=== PATIENT | male | born 1935 | race Caucasian/White ===

== ENCOUNTER 2022-10-15 13:54 | Inpatient (IN) | payer MEDICARE, SELFPAY ==
[2022-10-15] VITALS (17 sets, daily range): BP systolic 105–145; BP diastolic 38–99; PULSE 66–88; RESP 16–28; TEMP 36.4–36.9; O2SAT 92–100; BMI 26.5; BMI 26.4
--- NOTE | 2022-10-15 14:21 | ED.RN ---
Patient arrives from [place] after being brought here yesterday from [place]. Hgb 6.8 yesterday. 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 Patient states he is DNR/DNI. [place] called for paperwork.
--- NOTE | 2022-10-15 15:05 | NURSING ---
NO OLD EKGS
[2022-10-15 15:11] LABS: Anion Gap 3 (5-15); BUN 23 mg/dL (7-18); BUN/Creat Ratio 25.8 RATIO (10-20); Calcium,Total 8.6 mg/dL (8.5-10.1); Chloride 106 mmol/L (98-107); Creatinine, Serum 0.89 mg/dL (0.70-1.30); EST Glomerular Filtration Rate 86 mL/min (>60); Est Glom Filt Rate - Afr Amer 104 mL/min (>60); Estimated Creatinine Clearance 57.64 ml/min; Glucose 162 mg/dL (74-106); Hematocrit 20.9 % (40-54); Hemoglobin 6.5 g/dL (13.0-16.5); Mean Corp Hgb Conc 31.1 g/dL (32-36); Mean Corpuscular Hgb 32.3 pg (27.0-32.0); Mean Platelet Vol. 11.3 fl (6.2-12.0); POSITIVE COUNT YES; POSITIVE MORPHOLOGY YES; Platelet Count 106 K/mm3 (150-450); Potassium 4.2 mmol/L (3.5-5.1); RBC Distribution Width CV 22.6 % (11.6-14.6); RBC Distribution Width SD 82.7 fl (35.1-43.9); Red Blood Count 2.01 M/mm3 (4.6-6.2); Sodium Level 143 mmol/L (136-145); White Blood Count 9.1 K/mm3 (4.4-11.0)
[2022-10-15 15:12] LABS: Differential Indicated MANUAL DIFF
[2022-10-15 15:35] LABS: Troponin-I HS 18 pg/mL (3.0-78.0)
[2022-10-15 15:45] LABS: AST(SGOT) 17 U/L (15-37); Alanine Aminotransfer ALT/SGPT 29 U/L (16-61); Albumin, Serum 3.1 g/dL (3.2-5.0); Alkaline Phosphatase 136 U/L (45-117); Globulin 2.9 g/dL (2.2-4.2); Lymphocyte 19 % (19-41); Monocyte 4 % (0-10); Neutrophil-Band 4 % (0-5); Neutrophil-Segmented 73 % (47-70); Nucleated Red Bld Cells,Manual 1 % (0-5); Total Cells Counted 100 (MANUAL DIFF)
[2022-10-15 15:45] LABS: International Normalized Ratio 1.9; Prothrombin Time (Protime)PT. 22.2 SECONDS (11.7-14.9)
[2022-10-15 15:46] LABS: Anisocytosis 2+
[2022-10-15 15:47] LABS: Hypochromasia 1+; Platelet Estimate SLT DEC (ADEQ); Polychromasia RARE
[2022-10-15 15:48] LABS: Absolute Lymphocyte Count 1.73 X10^3/uL (0.83-4.51)
--- NOTE | 2022-10-15 15:55 | RAD_ITS ---
STUDY: X-RAY CHEST REASON FOR EXAM: Male, 87 years old. dyspnea TECHNIQUE: Single AP portable view of the chest. COMPARISON: None. FINDINGS: Prominently elevated left hemidiaphragm versus diaphragmatic hernia. Density in the adjacent left lung is consistent with atelectasis or scarring. Cannot exclude small left pleural effusion. Right lung is clear. Moderate cardiomegaly. Normal mediastinum and jc. Normal visualized pulmonary arteries. Normal visualized aortic arch and descending thoracic aorta. Normal visualized thoracic spine. Normal visualized ribs, clavicles, and shoulders. There is no demonstrated abnormality of the visualized soft tissue structures of the upper abdomen. RAD/Chest 1 View (Portable) IMPRESSION: Prominently elevated left hemidiaphragm versus diaphragmatic hernia. Complex pulmonary densities in the lower left hemithorax. CT scan recommended for better evaluation. Electronically Signed: Craig Whitaker MD at 16:35 EDT ,
--- NOTE | 2022-10-15 15:59 | EX.ED.DYSGE1 ---
HPI History of Present Illness Chief Complaint: Shortness of Breath Narrative Narrative: 87-year-old male presenting from [facility]. Apparently he just arrived here yesterday from [place]. He was diagnosed with leukemia previously. They did lab work today and noted that his hemoglobin was low and he sent to the emergency room. The patient is a poor informant. He does state he has a history of leukemia. He is accompanied by his sister. She tells me that her nephew is the power of immigration attorney. She was not able to give me much history however I did speak to MORENO his nephew on the phone who stated that he had a history of duodenal ulcers in the past. He is on Eliquis. His sister notes that his stools were very dark. He does not complain of abdominal pain. He does complain he is a little short of breath. [facility] Medical History (Updated 10/15/22 @ 20:06 by Hemanth Zazueta) Afib AML (acute myeloblastic leukemia) Anemia Congestive heart failure (CHF) Former smoker GI bleed Hypertension Prostate cancer Home Medications acetaminophen 325 mg capsule 650 mg PO Q4H PRN fever or pain 10/15/22 [History Last Taken Unknown] allopurinol 100 mg tablet 150 mg PO DAILY 10/15/22 [History Last Taken Unknown] apixaban 5 mg tablet (Eliquis) 5 mg PO BID 10/15/22 [History Last Taken Unknown] ferrous sulfate 325 mg (65 mg iron) tablet (Feosol) 325 mg PO QODAY 10/15/22 [History Last Taken Unknown] finasteride 5 mg tablet 5 mg PO DAILY 10/15/22 [History Last Taken Unknown] furosemide 20 mg tablet 20 mg PO DAILY 10/15/22 [History Last Taken Unknown] hydrocodone-acetaminophen 5-325mg 5mg-325mg 1 tab PO Q4H PRN pain 10/15/22 [History Last Taken Unknown] ipratropium 0.5 mg-albuterol 3 mg (2.5 mg base)/3 mL nebulization soln 3 ml inhalation Q4H PRN shortness of breath 10/15/22 [History Last Taken Unknown] metoprolol tartrate 25 mg tablet 25 mg PO BID 10/15/22 [History Last Taken Unknown] pantoprazole 40 mg tablet,delayed release 40 mg PO DAILY 10/15/22 [History Last Taken Unknown] potassium chloride 10 mEq tablet,extended release (K-Tab) 10 meq PO BID 10/15/22 [History Last Taken Unknown] sennosides 8.6 mg tablet (Natural Senna Laxative) 17.2 mg PO QHS 10/15/22 [History Last Taken Unknown] tamsulosin 0.4 mg capsule (Flomax) 0.4 mg PO DAILY 10/15/22 [History Last Taken Unknown] terazosin 2 mg capsule 2 mg PO DAILY 10/15/22 [History Last Taken Unknown] Allergy/AdvReac Type Severity Reaction Status Date / Time No Known Allergies Allergy Verified 10/15/22 14:23 Social History Smoking Status: Former smoker ROS ROS ED Constitutional Constitutional ED: Denies fever(s) or subjective Eyes Eyes: Denies blurry vision or change in vision ENT ENT ED: Denies rhinorrhea or sore throat Cardiovascular Cardiovascular: Denies chest pain or palpitations Respiratory/Chest Respiratory/Chest: Reports dyspnea Gastrointestinal Gastrointestinal: Reports melena; Denies abdominal pain, nausea or vomiting Genitourinary Genitourinary ED: Denies dysuria or hematuria Musculoskeletal Musculoskeletal: Denies arthralgias or back pain Integumentary Denies abscess Neurologic Neurologic: Denies headache(s) Psychiatric Psychiatric: Denies anxiety or depression EXAM Physical Exam Const Vital Signs: 10/15/22 13:57 10/15/22 14:05 10/15/22 14:08 Temperature 97.7 F L Temperature Source Oral Pulse Rate 86 86 Respiratory Rate 24 H 24 H Respiratory Effort Labored Blood Pressure 105/44 L Blood Pressure Mean 64 Pulse Ox 100 100 Oxygen Delivery Method Nasal Cannula Nasal Cannula Nasal Cannula Oxygen Flow Rate (L/min) 2 2 2 10/15/22 16:40 10/15/22 16:40 Temperature Temperature Source Pulse Rate Respiratory Rate 24 H Respiratory Effort Blood Pressure Blood Pressure Mean Pulse Ox 99 Oxygen Delivery Method Nasal Cannula Nasal Cannula Oxygen Flow Rate (L/min) 2 2 Positive unkempt General Appearance ED: unkempt and NAD HEENT Reports dry mucous membranes Mouth ED: Yes dry mucous membranes Mouth: dry mucous membranes Eyes PERRL and EOMs intact bilaterally General Eye ED: Yes pale conjunctiva; Negative for scleral icterus Resp normal respiratory effort Cardio regular rate and regular rhythm GI normal to inspection, nondistended, normoactive bowel sounds Neuro CN's II-XII intact bilaterally Sensorium / Orientation: alert Motor Exam: general weakness Psych Appearance: unkempt MDM MDM MDM Narrative Medical decision making narrative: 87-year-old male with history of leukemia recent transfer from [place] yesterday now in [facility]. He is coming in for low hemoglobin. Apparently he sat history of upper GI bleeds in the past. He is on Eliquis. The patient himself is a poor informant. I did speak with his POA which is his nephew Moreno. We discussed the case at length and he wants his uncle to be hospitalized if he needs endoscopy. His hemoglobin today is 6.5 with no comparison. He was typed and screened on arrival. CBC shows no leukocytosis. PT/INR were obtained and his INR is 1.9. Creatinine is 0.89 and BUN is 23. Electrolytes unremarkable. Glucose 162. Alkaline phosphatase 126, direct bilirubin 0.5, total bilirubin 1.0 otherwise LFTs are normal. Ammonia level is 11. High-sensitivity troponin is 18. EKG atrial fibrillation with a ventricular rate of 76 bpm without sign of ischemia. Chest x-ray shows nothing acute on my interpretation. No comparison x-rays discussed case with Dr. Shaikh who is amenable to him being admitted. He states he will take him to endoscopy. Discussed with hospitalist for admission. Impression: 1. Acute blood loss anemia 2. GI bleed 3. Debility Lab Data Attestation: I reviewed the patient's lab results. Labs: Laboratory Results - last 24 hr 10/15/22 10/15/22 10/15/22 14:18 14:47 15:04 WBC 9.1 RBC 2.01 L Hgb 6.5 L Hct 20.9 L MCV 104.0 H MCH 32.3 H MCHC 31.1 L RDW Std Deviation 82.7 H RDW Coeff of Jero 22.6 H Plt Count 106 L MPV 11.3 Neut % (Auto) Not Reportable Absolute Neuts (auto) 7.0 Absolute Lymphs (auto) 1.73 Total Counted 100 Neutrophils % (Manual) 73 H Band Neutrophils % 4 Lymphocytes % (Manual) 19 Monocytes % (Manual) 4 Nucleated RBCs/100 WBC 1 Diff Path Review May foll Platelet Estimate SLT DEC Polychromasia RARE Hypochromasia 1+ Anisocytosis 2+ PT 22.2 H INR 1.9 Sodium 143 Potassium 4.2 Chloride 106 Carbon Dioxide 34.0 H Anion Gap 3 L BUN 23 H Creatinine 0.89 Estim Creat Clear Calc 57.64 Est GFR (MDRD) Af Amer 104 Est GFR (MDRD) Non-Af 86 BUN/Creatinine Ratio 25.8 H Glucose 162 H Calcium 8.6 Total Bilirubin 1.00 Direct Bilirubin 0.50 H AST 17 ALT 29 Alkaline Phosphatase 136 H Ammonia Troponin I High Sens Total Protein 6.0 L Albumin 3.1 L Globulin 2.9 Blood Type Cancelled Antibody Screen Cancelled Crossmatch 10/15/22 10/15/22 15:05 15:35 WBC RBC Hgb Hct MCV MCH MCHC RDW Std Deviation RDW Coeff of Jero Plt Count MPV Neut % (Auto) Absolute Neuts (auto) Absolute Lymphs (auto) Total Counted Neutrophils % (Manual) Band Neutrophils % Lymphocytes % (Manual) Monocytes % (Manual) Nucleated RBCs/100 WBC Diff Path Review Platelet Estimate Polychromasia Hypochromasia Anisocytosis PT INR Sodium Potassium Chloride Carbon Dioxide Anion Gap BUN Creatinine Estim Creat Clear Calc Est GFR (MDRD) Af Amer Est GFR (MDRD) Non-Af BUN/Creatinine Ratio Glucose Calcium Total Bilirubin Direct Bilirubin AST ALT Alkaline Phosphatase Ammonia 11.0 Troponin I High Sens 18 Total Protein Albumin Globulin Blood Type Antibody Screen NEGATIVE Crossmatch See Detail Discharge Plan Disposition Disposition: Acute Care Hospital [facility] Discharge Date/Time: 10/15/22 18:17
--- NOTE | 2022-10-15 16:44 | NURSING ---
MED SURG RUBEN GI BLEED, ACUTE BLOOD LOSS, ANEMIA
--- NOTE | 2022-10-15 16:48 | PCM.HP.STD ---
[facility] - General General Date of Service: 10/15/22 Chief Complaint: weakness. HPI Narrative JASVIR LEA, is a 87 M who presents with weakness. Patient was just recently admitted to [facility] yesterday. He has been weak. Previously, the patient was living in [facility] and was sent here by his family. Patient had hernia surgery in August and has been in and out of the hospital in [place] ever since. Patient sister and nephew live out here and patient was brought here to stay at [facility]. Patient has noted dark stools. Does have a history of duodenal ulcers. Does have a history of AML and has been given a prognosis of months to maybe a year. [facility] Medical History (Updated 10/15/22 @ 16:[address] Farhad Gomes, ) Afib AML (acute myeloblastic leukemia) Anemia Prostate cancer Home Medications acetaminophen 325 mg capsule 650 mg PO Q4H PRN fever or pain 10/15/22 [History Last Taken Unknown] allopurinol 100 mg tablet 150 mg PO DAILY 10/15/22 [History Last Taken Unknown] apixaban 5 mg tablet (Eliquis) 5 mg PO BID 10/15/22 [History Last Taken Unknown] ferrous sulfate 325 mg (65 mg iron) tablet (Feosol) 325 mg PO QODAY 10/15/22 [History Last Taken Unknown] finasteride 5 mg tablet 5 mg PO DAILY 10/15/22 [History Last Taken Unknown] furosemide 20 mg tablet 20 mg PO DAILY 10/15/22 [History Last Taken Unknown] hydrocodone-acetaminophen 5-325mg 5mg-325mg 1 tab PO Q4H PRN pain 10/15/22 [History Last Taken Unknown] ipratropium 0.5 mg-albuterol 3 mg (2.5 mg base)/3 mL nebulization soln 3 ml inhalation Q4H PRN shortness of breath 10/15/22 [History Last Taken Unknown] metoprolol tartrate 25 mg tablet 25 mg PO BID 10/15/22 [History Last Taken Unknown] pantoprazole 40 mg tablet,delayed release 40 mg PO DAILY 10/15/22 [History Last Taken Unknown] potassium chloride 10 mEq tablet,extended release (K-Tab) 10 meq PO BID 10/15/22 [History Last Taken Unknown] sennosides 8.6 mg tablet (Natural Senna Laxative) 17.2 mg PO QHS 10/15/22 [History Last Taken Unknown] tamsulosin 0.4 mg capsule (Flomax) 0.4 mg PO DAILY 10/15/22 [History Last Taken Unknown] terazosin 2 mg capsule 2 mg PO DAILY 10/15/22 [History Last Taken Unknown] Allergy/AdvReac Type Severity Reaction Status Date / Time No Known Allergies Allergy Verified 10/15/22 14:23 no significant family history Social History Smoking Status: Former smoker DESTINY DIXON Narrative Has chronic eye issues involving his left due to retinal tear and numerous interventions on his eye. All review of systems were negative except as mentioned above in the history of present illness and the other review of systems. Vital Signs Vital Signs Vital Signs: 10/15/22 13:57 10/15/22 14:05 10/15/22 14:08 Temperature 36.5 C L Temperature Source Oral Pulse Rate 86 86 Respiratory Rate 24 H 24 H Respiratory Effort Labored Blood Pressure 105/44 L Blood Pressure Mean 64 Pulse Ox 100 100 Oxygen Delivery Method Nasal Cannula Nasal Cannula Nasal Cannula Oxygen Flow Rate (L/min) 2 2 2 10/15/22 16:40 10/15/22 16:40 Temperature Temperature Source Pulse Rate Respiratory Rate 24 H Respiratory Effort Blood Pressure Blood Pressure Mean Pulse Ox 99 Oxygen Delivery Method Nasal Cannula Nasal Cannula Oxygen Flow Rate (L/min) 2 2 Weight Weight: 79.2 kg Body Mass Index (BMI) 26.5 Physical Exam Const alert and no apparent distress General Appearance: cooperative HEENT normocephalic Eyes Eyes Narrative: Amblyopia. Left eye is matted. Disconjugate gaze particular with the left eye. Neck no lymphadenopathy Neck Narrative: No thyromegaly Resp normal respiratory effort, no retractions, no use of accessory muscles and clear to auscultation bilaterally Cardio regular rate, regular rhythm, S1 normal heart sound and S2 normal heart sound GI normal to inspection, nondistended, normoactive bowel sounds, soft to palpation, non-tender and non-distended Extremity normal to inspection and full ROM Neuro moves all extremities and no focal motor deficits Psych affect normal Results Lab / Micro Data Attestation: I reviewed the patient's lab results. 10/15/22 14:47 10/15/22 14:47 Labs: Laboratory Results - last 24 hr 10/15/22 14:18: PT 22.2 H, INR 1.9 10/15/22 14:47: WBC 9.1, RBC 2.01 L, Hgb 6.5 L, Hct 20.9 L, MCV 104.0 H, MCH 32.3 H, MCHC 31.1 L, RDW Std Deviation 82.7 H, RDW Coeff of Jero 22.6 H, Plt Count 106 L, MPV 11.3, Neut % (Auto) Not Reportable, Absolute Neuts (auto) 7.0, Absolute Lymphs (auto) 1.73, Total Counted 100, Neutrophils % (Manual) 73 H, Band Neutrophils % 4, Lymphocytes % (Manual) 19, Monocytes % (Manual) 4, Nucleated RBCs/100 WBC 1, Diff Path Review August, Platelet Estimate SLT DEC, Polychromasia RARE, Hypochromasia 1+, Anisocytosis 2+, Sodium 143, Potassium 4.2, Chloride 106, Carbon Dioxide 34.0 H, Anion Gap 3 L, BUN 23 H, Creatinine 0.89, Estim Creat Clear Calc 57.64, Est GFR (MDRD) Af Amer 104, Est GFR (MDRD) Non-Af 86, BUN/Creatinine Ratio 25.8 H, Glucose 162 H, Calcium 8.6, Total Bilirubin 1.00, Direct Bilirubin 0.50 H, AST 17, ALT 29, Alkaline Phosphatase 136 H, Total Protein 6.0 L, Albumin 3.1 L, Globulin 2.9 10/15/22 15:04: Blood Type Cancelled, Antibody Screen Cancelled 10/15/22 15:05: Troponin I High Sens 18 10/15/22 15:35: Ammonia 11.0, Crossmatch See Detail Assessment & Plan Assessment/Plan (1) GI bleed: QUALIFIERS: GI bleed type/associated pathology: unspecified gastrointestinal hemorrhage type Qualified Code(s): K92.2 - Gastrointestinal hemorrhage, unspecified PLAN: Suspected Patient has reported history of duodenal ulcers Possibly this could be duodenal ulcers combine by the fact that he is on apixaban. Hold apixaban GI consult IV pantoprazole (2) Acute blood loss anemia: PLAN: Presumed, hemoglobin 6.5 and patient is weak. Patient ordered 2 units of packed red blood cells. Monitor (3) Debility: PLAN: Acute on chronic. According to the patient's sister, he has been in and out of the hospital ever since August after having hernia surgery. He has not been home since then. PT OT evaluate and treat PLAN: Plan Chronic conditions Atrial fibrillation: Apixaban to be held given the bleeding, continue with pantoprazole History of duodenal ulcers: PPI therapy for now. Prostate cancer: Patient on tamsulosin, finasteride and terazosin. AML per history. Patient has been given prognosis of months to about a year. Has been deemed not A candidate for chemotherapy given his debility and multiple medical comorbidities. Gout: Continue allopurinol Chronic anemia: Continue with ferrous sulfate VTE prophylaxis: High risk for chemical prophylaxis given the anemia and GI bleed. SCDs. CODE STATUS: Addressed with the patient and his sister at bedside. Patient is DNR Comfort Care arrest no intubation. We will request records from [facility] where patient has had much of his testing and specialists. Charges/Coding Visit Charges Inpatient E&M: 68612 Init Hosp L3
--- NOTE | 2022-10-15 18:31 | CON.PCM.GI_ITS ---
HPI Consult Data Date of Consult: 10/15/22 HPI Narrative Reason for Consultation: GI bleed HPI Narrative: JASVIR LEA, is a 87 M who presents from [facility]. Apparently he just arrived here yesterday from [place]. He was diagnosed with leukemia previously. They did lab work today and noted t hat his hemoglobin was low and he sent to the emergency room. The patient is a poor historian. He does state he has a history of leukemia. He is accompanied by his sister. She tells me that her nephew is the power of energy attorney. She was not able to give me much history however I did speak to MORENO his nephew on the phone who stated that he had a history of duodenal ulcers in the past. He is on Eliquis. His sister notes that his stools were very dark. He does not complain of abdominal pain. He does complain he is a little short of breath. Patient had hernia surgery in August and has been in and out of the hospital in [place] ever since. Patient has noted dark stools and he does have a history of duodenal ulcers. He also has a history of AML and has been given a prognosis of months to maybe a year. Labs in the ED: WBC 9.1, RBC 2.01 L, Hgb 6.5 L, Hct 20.9 L, MCV 104.0 H, MCH 32.3 H, MCHC 31.1 L, RDW Std Deviation 82.7 H, RDW Coeff of Jero 22.6 H, Plt Count 106 L, MPV 11.3, Neut % (Auto) Not Reportable, Absolute Neuts (auto) 7.0, Absolute Lymphs (auto) 1.73, Total Counted 100, Neutrophils % (Manual) 73 H, Band Neutrophils % 4, Lymphocytes % (Manual) 19, Monocytes % (Manual) 4, Nucleated RBCs/100 WBC 1, Diff Path Review August foll, Platelet Estimate SLT DEC, Polychromasia RARE, Hypochromasia 1+, Anisocytosis 2+, Sodium 143, Potassium 4.2, Chloride 106, Carbon Dioxide 34.0 H, Anion Gap 3 L, BUN 23 H, Creatinine 0.89, Estim Creat Clear Calc 57.64, Est GFR (MDRD) Af Amer 104, Est GFR (MDRD) Non-Af 86, BUN/Creatinine Ratio 25.8 H, Glucose 162 H, Calcium 8.6, Total Bilirubin 1.00, Direct Bilirubin 0.50 H, AST 17, ALT 29, Alkaline Phosphatase 136 H, Total Protein 6.0 L, Albumin 3.1 L, Globulin 2.9 PFSH Medical History (Updated 10/15/22 @ 18:[address] Corcoran Friend, DO) Afib AML (acute myeloblastic leukemia) Anemia Prostate cancer Home Medications acetaminophen 325 mg capsule 650 mg PO Q4H PRN fever or pain 10/15/22 [History Last Taken Unknown] allopurinol 100 mg tablet 150 mg PO DAILY 10/15/22 [History Last Taken Unknown] apixaban 5 mg tablet (Eliquis) 5 mg PO BID 10/15/22 [History Last Taken Unknown] ferrous sulfate 325 mg (65 mg iron) tablet (Feosol) 325 mg PO QODAY 10/15/22 [History Last Taken Unknown] finasteride 5 mg tablet 5 mg PO DAILY 10/15/22 [History Last Taken Unknown] furosemide 20 mg tablet 20 mg PO DAILY 10/15/22 [History Last Taken Unknown] hydrocodone-acetaminophen 5-325mg 5mg-325mg 1 tab PO Q4H PRN pain 10/15/22 [History Last Taken Unknown] ipratropium 0.5 mg-albuterol 3 mg (2.5 mg base)/3 mL nebulization soln 3 ml inhalation Q4H PRN shortness of breath 10/15/22 [History Last Taken Unknown] metoprolol tartrate 25 mg tablet 25 mg PO BID 10/15/22 [History Last Taken Unknown] pantoprazole 40 mg tablet,delayed release 40 mg PO DAILY 10/15/22 [History Last Taken Unknown] potassium chloride 10 mEq tablet,extended release (K-Tab) 10 meq PO BID 10/15/22 [History Last Taken Unknown] sennosides 8.6 mg tablet (Natural Senna Laxative) 17.2 mg PO QHS 10/15/22 [History Last Taken Unknown] tamsulosin 0.4 mg capsule (Flomax) 0.4 mg PO DAILY 10/15/22 [History Last Taken Unknown] terazosin 2 mg capsule 2 mg PO DAILY 10/15/22 [History Last Taken Unknown] Allergy/AdvReac Type Severity Reaction Status Date / Time No Known Allergies Allergy Verified 10/15/22 14:23 Family History no significant family his Social History Smoking Status: Former smoker ROS DESTINY Narrative Has chronic eye issues involving his left due to retinal tear and numerous interventions on his eye. All review of systems were negative except as mentioned above in the history of present illness and the other review of systems. Physical Exam Const alert and no apparent distress General Appearance: cooperative HEENT normocephalic Neck no lymphadenopathy Neck Narrative: No thyromegaly Resp normal respiratory effort, no retractions, no use of accessory muscles and clear to auscultation bilaterally Cardio regular rate, regular rhythm, S1 normal heart sound and S2 normal heart sound GI normal to inspection, nondistended, normoactive bowel sounds, soft to palpation, non-tender and non-distended Extremity normal to inspection and full ROM Neuro moves all extremities and no focal motor deficits Psych affect normal Lab / Micro Data 10/15/22 14:47 10/15/22 14:47 Labs: Laboratory Results - last 24 hr 10/15/22 14:18: PT 22.2 H, INR 1.9 10/15/22 14:47: WBC 9.1, RBC 2.01 L, Hgb 6.5 L, Hct 20.9 L, MCV 104.0 H, MCH 32.3 H, MCHC 31.1 L, RDW Std Deviation 82.7 H, RDW Coeff of Jero 22.6 H, Plt C ount 106 L, MPV 11.3, Neut % (Auto) Not Reportable, Absolute Neuts (auto) 7.0, Absolute Lymphs (auto) 1.73, Total Counted 100, Neutrophils % (Manual) 73 H, Band Neutrophils % 4, Lymphocytes % (Manual) 19, Monocytes % (Manual) 4, Nucleated RBCs/100 WBC 1, Diff Path Review May foll, Platelet Estimate SLT DEC, Polychromasia RARE, Hypochromasia 1+, Anisocytosis 2+, Sodium 143, Potassium 4.2, Chloride 106, Carbon Dioxide 34.0 H, Anion Gap 3 L, BUN 23 H, Creatinine 0.89, Estim Creat Clear Calc 57.64, Est GFR (MDRD) Af Amer 104, Est GFR (MDRD) Non-Af 86, BUN/Creatinine Ratio 25.8 H, Glucose 162 H, Calcium 8.6, Total Bilirubin 1.00, Direct Bilirubin 0.50 H, AST 17, ALT 29, Alkaline Phosphatase 136 H, Total Protein 6.0 L, Albumin 3.1 L, Globulin 2.9 10/15/22 15:04: Blood Type Cancelled, Antibody Screen Cancelled 10/15/22 15:05: Troponin I High Sens 18 10/15/22 15:35: Ammonia 11.0, Antibody Screen NEGATIVE, Crossmatch See Detail Micro: Microbiology 10/15/22 16:55 Stool Stool Occult Blood (MAGDALENA) - Final Assessment & Plan Assessment/Plan (1) Acute blood loss anemia: (2) GI bleed: QUALIFIERS: GI bleed type/associated pathology: unspecified gastrointestinal hemorrhage type Qualified Code(s): K92.2 - Gastrointestinal hemorrhage, unspecified PLAN: Plan 87-year-old with past medical history patient on Eliquis, AML status p ostchemotherapy with poor prognosis, presumed acute blood loss anemia in the setting of anticoagulation. Differential diagnosis does include angiodysplasia, leg malignancy, portal gastropathy, portal hypertension, varices, peptic ulcer disease. He received Protonix in ED. He should undergo an upper endoscopy to evaluate his upper GI tract. Him and his family were explained alternatives, risk, benefits including outstanding bleeding, infection, sepsis, perforation, need for emergent surgery and . Have an ASA of 3. Charges/Coding Visit Charges Inpatient E&M: 77258 Init Hosp L3
--- NOTE | 2022-10-15 19:12 | OP.EGD_ITS ---
Patient Name: Harris Brito Procedure Date: 10/15/2022 6:19 PM Date of : 1935 Age: 87 Procedure: Upper GI endoscopy Indications: Iron deficiency anemia, Melena Providers: Nilo Shaikh DO Medicines: Monitored Anesthesia Care Patient Profile: This is an 87 year old male. Refer to note in patient chart for documentation of history and physical. Patient has symptoms of acute epigastric abdominal pain and acute nausea. Complications: No immediate complications. Procedure: Pre-Anesthesia Assessment: - Prior to the procedure, a History and Physical was performed, and patient medications and allergies were reviewed. The patient is competent. The risks and benefits of the procedure and the sedation options and risks were discussed with the patient. All questions were answered and informed consent was obtained. Patient identification and proposed procedure were verified by the physician in the pre-procedure area. Mental Status Examination: alert and oriented. Airway Examination: normal oropharyngeal airway and neck mobility. Respiratory Examination: clear to auscultation. CV Examination: normal. Prophylactic Antibiotics: The patient does not require prophylactic antibiotics. Prior Anticoagulants: The patient has taken no previous anticoagulant or antiplatelet agents. ASA Grade Assessment: III - A patient with severe systemic disease. After reviewing the risks and benefits, the patient was deemed in satisfactory condition to undergo the procedure. The anesthesia plan was to use monitored anesthesia care (MAC). Immediately prior to administration of medications, the patient was re-assessed for adequacy to receive sedatives. The heart rate, respiratory rate, oxygen saturations, blood pressure, adequacy of pulmonary ventilation, and response to care were monitored throughout the procedure. The physical status of the patient was re-assessed after the procedure. After obtaining informed consent, the endoscope was passed under direct vision. Throughout the procedure, the patient's blood pressure, pulse, and oxygen saturations were monitored continuously. The Endoscope was introduced through the mouth, and advanced to the second part of duodenum. The upper GI endoscopy was accomplished without difficulty. The patient tolerated the procedure well. Scope In: 7:03:25 PM Scope Out: 7:07:53 PM Total Procedure Duration Time 0 hours 4 minutes 28 seconds Findings: Non-severe esophagitis with no bleeding was found 39 to 42 cm from the incisors. A small hiatal hernia was present. Two 5 mm bleeding angiodysplastic lesions were found in the cardia. Coagulation for hemostasis using heater probe was successful. Estimated blood loss was minimal. Three oozing cratered gastric ulcers with a visible vessel were found in the gastric body. The largest lesion was 6 mm in largest dimension. Area was successfully injected with 5 mL of a 1:10,000 solution of epinephrine for drug delivery. Estimated blood loss was minimal. No gross lesions were noted in the second portion of the duodenum. Impression: - Non-severe erosive esophagitis. - Small hiatal hernia. - Two bleeding angiodysplastic lesions in the stomach. Treated with a heater probe. - Oozing gastric ulcers with a visible vessel. Injected. - No gross lesions in the second portion of the duodenum. - No specimens collected. Recommendation: - [facility] to [facility] care. - Give Protonix (pantoprazole): initiate therapy with 80 mg IV bolus, then 8 mg/hr IV by continuous infusion. - Use sucralfate tablets 1 gram PO BID. - Continue present medications. - The patient has taken no previous anticoagulant or antiplatelet agents. - No aspirin, ibuprofen, naproxen, or other non-steroidal anti-inflammatory drugs. Procedure Code(s): --- Professional --- 83853, Esophagogastroduodenoscopy, flexible, transoral; with control of bleeding, any method 24320, 59,51, Esophagogastroduodenoscopy, flexible, transoral; with directed submucosal injection(s), any substance CPT copyright 2017 [employer]. All rights reserved. The codes documented in this report are preliminary and upon supervisor wet room review may be revised to meet current compliance requirements. Nilo Shaikh DO 10/15/2022 7:12:14 PM This report has been signed electronically. Number of Addenda: 0 Note Initiated On: 10/15/2022 6:19 PM
--- NOTE | 2022-10-15 19:12 | OP.CCLET_ITS ---
10/15/2022 No Primary Care Physician Re : Upper [facility] This procedure was performed on Saturday, October 15, 2022. My impressions and recommendations are as follows: Impressions : - Non-severe erosive esophagitis. - Small hiatal hernia. - Two bleeding angiodysplastic lesions in the stomach. Treated with a heater probe. - Oozing gastric ulcers with a visible vessel. Injected. - No gross lesions in the second portion of the duodenum. - No specimens collected. Recommendations : - Return patient to [facility] for ongoing care. - Give Protonix (pantoprazole): initiate therapy with 80 mg IV bolus, then 8 mg/hr IV by continuous infusion. - Use sucralfate tablets 1 gram PO BID. - Continue present medications. - The patient has taken no previous anticoagulant or antiplatelet agents. - No aspirin, ibuprofen, naproxen, or other non-steroidal anti-inflammatory drugs. My findings are described in the full procedure note, which is enclosed. If I can be of further assistance, please feel free to contact me at . Sincerely, Nilo Shaikh, 10/15/2022 7:12:14 PM This report has been signed electronically.
[2022-10-15] MEDS: Furosemide 40 MG/4 ML Vial IV (19:38)
[2022-10-15] MEDS: HYDROcodone Bitartrate/Apap 5/325 Tablet PO (20:17)
[2022-10-15] MEDS: Senna Tablet 2 TABLET PO (22:47)
[2022-10-15] MEDS: Sucralfate 1 GM Tablet PO (22:47)
[2022-10-15] MEDS: Metoprolol Tartrate 25 MG Tablet PO (22:47)
[2022-10-16] VITALS (8 sets, daily range): BP systolic 105–121; BP diastolic 53–69; PULSE 69–85; RESP 16–22; TEMP 36.4–37.2; O2SAT 94–100
[2022-10-16] MEDS: 0.9% Saline Lock 10 ML Syringe IV (01:42)
[2022-10-16] MEDS: HYDROcodone Bitartrate/Apap 5/325 Tablet PO (01:44)
[2022-10-16] MEDS: Sucralfate 1 GM Tablet PO ×2 (06:27→16:30)
[2022-10-16 06:39] LABS: Hematocrit 27.1 % (40-54); Hemoglobin 8.4 g/dL (13.0-16.5); Mean Corpuscular Hgb 30.3 pg (27.0-32.0); Mean Corpuscular Volume 97.8 fL (80-94); Mean Platelet Vol. 11.1 fl (6.2-12.0); POSITIVE COUNT YES; POSITIVE MORPHOLOGY YES; Platelet Count 106 K/mm3 (150-450); RBC Distribution Width CV 22.2 % (11.6-14.6); Red Blood Count 2.77 M/mm3 (4.6-6.2)
[2022-10-16 07:08] LABS: Anion Gap 3 (5-15); BUN 23 mg/dL (7-18); BUN/Creat Ratio 26.2 RATIO (10-20); Calcium,Total 8.4 mg/dL (8.5-10.1); Chloride 107 mmol/L (98-107); Creatinine, Serum 0.88 mg/dL (0.70-1.30); EST Glomerular Filtration Rate 88 mL/min (>60); Est Glom Filt Rate - Afr Amer 106 mL/min (>60); Glucose 94 mg/dL (74-106); Potassium 4.2 mmol/L (3.5-5.1); Sodium Level 144 mmol/L (136-145)
[2022-10-16 07:32] LABS: Differential Indicated MANUAL DIFF
--- NOTE | 2022-10-16 07:45 | PN.HOSP_ITS ---
Reason for Visit Reason for Visit: Diagnoses Acute posthemorrhagic anemia (10/15/22) Gastrointestinal hemorrhage, unspecified (10/15/22) Other malaise (10/15/22) Subjective Subjective Feels well. No issues overnight. Objective Data Objective Data Vital Signs: Vital Signs Temp Pulse Resp BP Pulse Ox O2 Del Method O2 Flow Rate 36.4 C L 85 22 H 120/67 94 Nasal Cannula 3 10/16/22 05:48 10/16/22 05:48 10/16/22 05:48 10/16/22 05:48 10/16/22 05:48 10/16/22 05:48 10/16/22 05:48 Oxygen Flow Rate (L/min) 3 Oxygen Delivery Method Nasal Cannula Weight: 78.925 kg Body Mass Index (BMI) 26.4 Intake & Output: Intake and Output for Last 24 Hours 10/14/22 10/15/22 10/16/22 23:59 23:59 23:59 Intake Total 600 / 600 500 / 500 Output Total 650 / 650 250 / 250 Balance -50 / -50 250 / 250 Lab / Micro Data 10/16/22 05:56 10/16/22 05:56 Labs: Laboratory Results - last 24 hr 10/15/22 14:18: PT 22.2 H, INR 1.9 10/15/22 14:47: WBC 9.1, RBC 2.01 L, Hgb 6.5 L, Hct 20.9 L, MCV 104.0 H, MCH 32.3 H, MCHC 31.1 L, RDW Std Deviation 82.7 H, RDW Coeff of Jero 22.6 H, Plt Count 106 L, MPV 11.3, Neut % (Auto) Not Reportable, Absolute Neuts (auto) 7.0, Absolute Lymphs (auto) 1.73, Total Counted 100, Neutrophils % (Manual) 73 H, Band Neutrophils % 4, Lymphocytes % (Manual) 19, Monocytes % (Manual) 4, Nucleated RBCs/100 WBC 1, Diff Path Review August, Platelet Estimate SLT DEC, Polychromasia RARE, Hypochromasia 1+, Anisocytosis 2+, Sodium 143, Potassium 4.2, Chloride 106, Carbon Dioxide 34.0 H, Anion Gap 3 L, BUN 23 H, Creatinine 0.89, Estim Creat Clear Calc 57.64, Est GFR (MDRD) Af Amer 104, Est GFR (MDRD) Non-Af 86, BUN/Creatinine Ratio 25.8 H, Glucose 162 H, Calcium 8.6, Total Bilirubin 1.00, Direct Bilirubin 0.50 H, AST 17, ALT 29, Alkaline Phosphatase 136 H, Total Protein 6.0 L, Albumin 3.1 L, Globulin 2.9 10/15/22 15:04: Blood Type Cancelled, Antibody Screen Cancelled 10/15/22 15:05: Troponin I High Sens 18 10/15/22 15:35: Ammonia 11.0, Antibody Screen NEGATIVE, Crossmatch See Detail 10/16/22 05:56: WBC 12.0 H, RBC 2.77 L, Hgb 8.4 L, Hct 27.1 L, MCV 97.8 H D, MCH 30.3, MCHC 31.0 L, RDW Std Deviation 75.0 H, RDW Coeff of Jero 22.2 H, Plt Count 106 L, MPV 11.1, Neut % (Auto) Not Reportable, Sodium 144, Potassium 4.2, Chloride 107, Carbon Dioxide 34.0 H, Anion Gap 3 L, BUN 23 H, Creatinine 0.88, Estim Creat Clear Calc 58.30, Est GFR (MDRD) Af Amer 106, Est GFR (MDRD) Non-Af 88, BUN/Creatinine Ratio 26.2 H, Glucose 94, Calcium 8.4 L Micro: Microbiology 10/15/22 16:55 Stool Stool Occult Blood (MAGDALENA) - Final Physical Exam Const alert and no apparent distress HEENT head/scalp atraumatic and moist oral mucous membranes Resp normal respiratory effort, no retractions, no use of accessory muscles and clear to auscultation bilaterally Cardio regular rate, regular rhythm, S1 normal heart sound and S2 normal heart sound GI normal to inspection, nondistended, normoactive bowel sounds, soft to palpation, non-tender and non-distended Extremity normal to inspection Assessment & Plan Assessment/Plan (1) GI bleed: QUALIFIERS: GI bleed type/associated pathology: unspecified gastrointestinal hemorrhage type Qualified Code(s): K92.2 - Gastrointestinal hemorrhage, unspecified PLAN: 2/2 gastric ulcers, angiodysplastic lesions while on apixaban EGD on 10/15: non-severe erosive esophagitis, small HH, 2 bleeding angiodysplastic in the stomach (treated w heater probe), oozing gastric ulcers w visible vessel (injected). Protonix gtt (was on boluses prior to EGD). Continue for 72h. Sucralfate. (2) Acute blood loss anemia: PLAN: Admission hemoglobin 6.5 Improved to 8.4 after 2 units of PRBCs. (3) Debility: PLAN: Acute on chronic. According to the patient's sister, he has been in and out of the hospital ever since August after having hernia surgery. He has not been home since then. PT OT evaluate and treat PLAN: Plan Chronic conditions * Atrial fibrillation: Apixaban to be held given the bleeding, continue with pantoprazole * History of duodenal ulcers: No evidence currently. * Prostate cancer: Patient on tamsulosin, finasteride and terazosin. * AML per history. Patient has been given prognosis of months to about a year. Has been deemed not A candidate for chemotherapy given his debility and multiple medical comorbidities. * Gout: Continue allopurinol * Chronic anemia: Continue with ferrous sulfate VTE prophylaxis: High risk for chemical prophylaxis given the anemia and GI bleed. SCDs. CODE STATUS: Addressed with the patient and his sister at bedside. Patient is DNR Comfort Care arrest no intubation. Requested records from [facility] where patient has had much of his testing and specialists. Charges/Coding Visit Charges Inpatient E&M: 31419 Subs Hosp L2
[2022-10-16] MEDS: Doxazosin 1 MG Tablet 2 MG PO (09:12)
[2022-10-16] MEDS: Furosemide 20 MG Tablet PO (09:13)
[2022-10-16] MEDS: Allopurinol 100 MG Tablet 150 MG PO (09:13)
[2022-10-16] MEDS: Finasteride 5 MG Tablet PO (09:13)
[2022-10-16] MEDS: Metoprolol Tartrate 25 MG Tablet PO ×2 (09:14→21:33)
[2022-10-16 10:15] LABS: Anisocytosis 2+; Lymphocyte 19 % (19-41); Monocyte 5 % (0-10); Neutrophil-Band 3 % (0-5); Neutrophil-Segmented 73 % (47-70); Platelet Estimate SLT DEC (ADEQ); Polychromasia RARE; Total Cells Counted 100 (MANUAL DIFF)
[2022-10-16 10:16] LABS: Hypochromasia 1+
[2022-10-16 10:17] LABS: Absolute Lymphocyte Count 2.28 X10^3/uL (0.83-4.51); Absolute Neutrophil Count 9.1 X10^3/uL (2.0-7.7)
[2022-10-16] MEDS: Acetaminophen 325 MG Tablet 650 MG PO (12:06)
--- NOTE | 2022-10-16 12:36 | PCA ---
This legal secretary faxed a request of medical records to [facility] in [facility]. called the hospital and medical records is closed.
--- NOTE | 2022-10-16 15:22 | PN.GI_ITS ---
Subjective Subjective Patient is doing well without any signs or symptoms of GI bleeding. He is tolerating a diet. He denies any nausea. He has been sleeping a lot. I talked to his sister regarding the findings from his upper endoscopy. Anticoagulation still on hold. Objective Data Objective Data Vital Signs: Vital Signs Temp Pulse Resp BP Pulse Ox O2 Del Method O2 Flow Rate 97.9 F 69 16 121/69 H 96 Nasal Cannula 2 10/16/22 09:02 10/16/22 09:14 10/16/22 09:02 10/16/22 09:02 10/16/22 09:02 10/16/22 09:02 10/16/22 09:02 Oxygen Flow Rate (L/min) 2 Oxygen Delivery Method Nasal Cannula Weight: 174 lb Body Mass Index (BMI) 26.4 Intake & Output: Intake and Output for Last 24 Hours 10/14/22 10/15/22 10/16/22 23:59 23:59 23:59 Intake Total 600 / 600 1000 / 1000 Output Total 650 / 650 250 / 250 Balance -50 / -50 750 / 750 Lab / Micro Data 10/16/22 05:56 10/16/22 05:56 Labs: Laboratory Results - last 24 hr 10/15/22 14:18: PT 22.2 H, INR 1.9 10/15/22 14:47: Absolute Neuts (auto) 7.0, Absolute Lymphs (auto) 1.73, Total Counted 100, Neutrophils % (Manual) 73 H, Band Neutrophils % 4, Lymphocytes % (Manual) 19, Monocytes % (Manual) 4, Nucleated RBCs/100 WBC 1, Diff Path Review August, Platelet Estimate SLT DEC, Polychromasia RARE, Hypochromasia 1+, Anisocytosis 2+, Total Bilirubin 1.00, Direct Bilirubin 0.50 H, AST 17, ALT 29, Alkaline Phosphatase 136 H, Total Protein 6.0 L, Albumin 3.1 L, Globulin 2.9 10/15/22 15:04: Blood Type Cancelled, Antibody Screen Cancelled 10/15/22 15:05: Troponin I High Sens 18 10/15/22 15:35: Ammonia 11.0, Antibody Screen NEGATIVE, Crossmatch See Detail 10/16/22 05:56: WBC 12.0 H, RBC 2.77 L, Hgb 8.4 L, Hct 27.1 L, MCV 97.8 H D, MCH 30.3, MCHC 31.0 L, RDW Std Deviation 75.0 H, RDW Coeff of Jero 22.2 H, Plt Count 106 L, MPV 11.1, Neut % (Auto) Not Reportable, Absolute Neuts (auto) 9.1 H, Absolute Lymphs (auto) 2.28, Total Counted 100, Neutrophils % (Manual) 73 H, Band Neutrophils % 3, Lymphocytes % (Manual) 19, Monocytes % (Manual) 5, Diff Path Review August foll, Platelet Estimate SLT DEC, Polychromasia RARE, Hypochromasia 1+, Anisocytosis 2+, Sodium 144, Potassium 4.2, Chloride 107, Carbon Dioxide 34.0 H, Anion Gap 3 L, BUN 23 H, Creatinine 0.88, Estim Creat Clear Calc 58.30, Est GFR (MDRD) Af Amer 106, Est GFR (MDRD) Non-Af 88, BUN/Creatinine Ratio 26.2 H, Glucose 94, Calcium 8.4 L Micro: Microbiology 10/15/22 16:55 Stool Stool Occult Blood (MAGDALENA) - Final Physical Exam Const alert and no apparent distress HEENT head/scalp atraumatic and moist oral mucous membranes Resp normal respiratory effort, no retractions, no use of accessory muscles and clear to auscultation bilaterally Cardio regular rate, regular rhythm, S1 normal heart sound and S2 normal heart sound GI normal to inspection, nondistended, normoactive bowel sounds, soft to palpation, non-tender and non-distended Extremity normal to inspection Assessment & Plan Assessment/Plan (1) AML (acute myeloblastic leukemia): (2) Afib: QUALIFIERS: Atrial fibrillation type: unspecified chronic Quali fied Code(s): I48.20 - Chronic atrial fibrillation, unspecified (3) GI bleed: QUALIFIERS: GI bleed type/associated pathology: unspecified gastrointestinal hemorrhage type Qualified Code(s): K92.2 - Gastrointestinal hemorrhage, unspecified (4) Acute blood loss anemia: PLAN: Plan 87-year-old with multiple comorbidities including AML status postchemotherapy and A-fib with RVR on anticoagulation who came in with acute blood loss anemia. He underwent an upper endoscopy and the findings were: non-severe esophagitis with no bleeding was found 39 to 42 cm from the incisors. A small hiatal hernia was present. Two 5 mm bleeding angiodysplastic lesions were found in the cardia. Coagulation for hemostasis using heater probe was successful. Estimated blood loss was minimal. Three oozing cratered gastric ulcers with a visible vessel were found in the gastric body. The largest lesion was 6 mm in largest dimension. Area was successfully injected with 5 mL of a 1:10,000 solution of epinephrine for drug delivery. Estimated blood loss was minimal. Recommendation: Patient is not a anticoagulation candidate at this time. He will need to take Protonix 40 mg p.o. twice daily and Carafate 1 g p.o. 3 times daily. He needs better nutrition. I will encourage Ensure 1 can p.o. 3 times daily for healing purposes x4 to 6 weeks. Repeat upper endoscopy in approximately 8 weeks to ensure healing. Charges/Coding Visit Charges Inpatient E&M: 53955 Subs Hosp L3
[2022-10-16] MEDS: Tamsulosin HCl 0.4 MG Capsule PO (16:31)
[2022-10-16] MEDS: Potassium Chloride Oral Tablet 10 MEQ PO (21:33)
[2022-10-16] MEDS: Senna Tablet 2 TABLET PO (21:33)
--- NOTE | 2022-10-16 22:00 | PCM.HOSP.N ---
Hospitalist Note L eye with notable injection and discharge, will start erythromycin oint.
[2022-10-16] MEDS: Erythromycin Base 1 OPTH.TUBE 1 APPLIC LEFT EYE (23:44)
[2022-10-17] VITALS (7 sets, daily range): BP systolic 110–111; BP diastolic 50–79; PULSE 68–83; RESP 18–20; TEMP 36.4–36.6; O2SAT 95–98
[2022-10-17 06:11] LABS: Absolute Lymphocyte Count 1.48 X10^3/uL (0.83-4.51); Absolute Neutrophil Count 6.3 X10^3/uL (2.0-7.7); Basophil# 0.02 X10^3/uL; Basophil% 0.2 % (0-1); Differential Indicated SCAN CRITERIA MET; Eosinophil# 0.01 X10^3/uL; Eosinophils% 0.1 % (0-5); Hematocrit 26.4 % (40-54); Hemoglobin 8.2 g/dL (13.0-16.5); Lymphocyte # 1.48 X10^3/ul (0.83-4.51); Lymphocyte % 17.1 % (19-41); Mean Corp Hgb Conc 31.1 g/dL (32-36); Mean Corpuscular Hgb 30.7 pg (27.0-32.0); Mean Corpuscular Volume 98.9 fL (80-94); Mean Platelet Vol. 11.3 fl (6.2-12.0); Monocyte# 0.47 X10^3/uL; Monocyte% 5.4 % (0-10); NRBC Flagged by Analyzer 3.1 % (0-5); Neutrophil # 6.27 X10^3/uL (2.7-7.7); Neutrophil % 72.7 % (47-70); POSITIVE COUNT YES; POSITIVE MORPHOLOGY YES; Platelet Count 92 K/mm3 (150-450); RBC Distribution Width CV 21.5 % (11.6-14.6); RBC Distribution Width SD 76.3 fl (35.1-43.9); Red Blood Count 2.67 M/mm3 (4.6-6.2); White Blood Count 8.6 K/mm3 (4.4-11.0)
[2022-10-17 06:35] LABS: Anion Gap 1 (5-15); BUN 24 mg/dL (7-18); BUN/Creat Ratio 27.9 RATIO (10-20); Calcium,Total 8.5 mg/dL (8.5-10.1); Chloride 105 mmol/L (98-107); Creatinine, Serum 0.86 mg/dL (0.70-1.30); EST Glomerular Filtration Rate 89 mL/min (>60); Est Glom Filt Rate - Afr Amer 108 mL/min (>60); Estimated Creatinine Clearance 59.65 ml/min; Glucose 91 mg/dL (74-106); Potassium 4.5 mmol/L (3.5-5.1); Sodium Level 140 mmol/L (136-145)
[2022-10-17 06:44] LABS: Anisocytosis 2+; Differential Comment SCANNED; Hypochromasia 1+; Microcytosis 2+
[2022-10-17] MEDS: Sucralfate 1 GM Tablet PO ×2 (06:45→15:13)
[2022-10-17] MEDS: Acetaminophen 325 MG Tablet 650 MG PO (06:45)
--- NOTE | 2022-10-17 07:43 | PCM.PN.HOSP ---
Reason for Visit Reason for Visit: Diagnoses Acute myeloblastic leukemia, not having achieved remission (10/15/22) Acute posthemorrhagic anemia (10/15/22) Chronic atrial fibrillation, unspecified (10/15/22) Gastrointestinal hemorrhage, unspecified (10/15/22) Other malaise (10/15/22) Subjective Subjective No new complaints. Objective Data Objective Data Vital Signs: Vital Signs Temp Pulse Resp BP Pulse Ox O2 Del Method O2 Flow Rate 36.6 C 83 18 111/58 L 98 Nasal Cannula 2 10/17/22 03:50 10/17/22 03:50 10/17/22 03:50 10/17/22 03:50 10/17/22 03:50 10/17/22 03:56 10/17/22 03:56 Oxygen Flow Rate (L/min) 2 Oxygen Delivery Method Nasal Cannula Weight: 78.925 kg Body Mass Index (BMI) 26.4 Intake & Output: Intake and Output for Last 24 Hours 10/15/22 10/16/22 10/17/22 23:59 23:59 23:59 Intake Total 600 / 600 1334.5 / 1334.5 692.83 / 692.83 Output Total 650 / 650 250 / 250 400 / 400 Balance -50 / -50 1084.5 / 1084.5 292.83 / 292.83 Lab / Micro Data 10/17/22 05:33 10/17/22 05:33 Labs: Laboratory Results - last 24 hr 10/16/22 05:56: Absolute Neuts (auto) 9.1 H, Absolute Lymphs (auto) 2.28, Total Counted 100, Neutrophils % (Manual) 73 H, Band Neutrophils % 3, Lymphocytes % (Manual) 19, Monocytes % (Manual) 5, Diff Path Review August, Platelet Estimate SLT DEC, Polychromasia RARE, Hypochromasia 1+, Anisocytosis 2+ 10/17/22 05:33: WBC 8.6, RBC 2.67 L, Hgb 8.2 L, Hct 26.4 L, MCV 98.9 H, MCH 30.7, MCHC 31.1 L, RDW Std Deviation 76.3 H, RDW Coeff of Jero 21.5 H, Plt Count 92 L, MPV 11.3, Immature Gran % (Auto) 4.500 H, Neut % (Auto) 72.7 H, Lymph % (Auto) 17.1 L, Evans % (Auto) 5.4, Eos % (Auto) 0.1, Baso % (Auto) 0.2, Absolute Neuts (auto) 6.3, Absolute Lymphs (auto) 1.48, Nucleated RBC % 3.1, Differential Comment SCANNED, Hypochromasia 1+, Anisocytosis 2+, Microcytosis 2+, Sodium 140, Potassium 4.5, Chloride 105, Carbon Dioxide 34.0 H, Anion Gap 1 L, BUN 24 H, Creatinine 0.86, Estim Creat Clear Calc 59.65, Est GFR (MDRD) Af Amer 108, Est GFR (MDRD) Non-Af 89, BUN/Creatinine Ratio 27.9 H, Glucose 91, Calcium 8.5 Micro: Microbiology 10/15/22 16:55 Stool Stool Occult Blood (MAGDALENA) - Final Physical Exam Const alert and no apparent distress HEENT head/scalp atraumatic and moist oral mucous membranes Resp normal respiratory effort, no retractions, no use of accessory muscles and clear to auscultation bilaterally Cardio regular rate, regular rhythm, S1 normal heart sound and S2 normal heart sound GI normal to inspection, nondistended, normoactive bowel sounds, soft to palpation and non-tender Extremity normal to inspection Assessment & Plan Assessment/Plan (1) GI bleed: QUALIFIERS: GI bleed type/associated pathology: unspecified gastrointestinal hemorrhage type Qualified Code(s): K92.2 - Gastrointestinal hemorrhage, unspecified PLAN: 2/2 gastric ulcers, angiodysplastic lesions while on apixaban EGD on 10/15: non-severe erosive esophagitis, small HH, 2 bleeding angiodysplastic in the stomach (treated w heater probe), oozing gastric ulcers w visible vessel (injected). Protonix gtt (was on boluses prior to EGD). Continue for 72h (through 10/18) Sucralfate. (2) Acute blood loss anemia: PLAN: Admission hemoglobin 6.5 Improved to 8.4 after 2 units of PRBCs. Currently 8.2 (3) Debility: PLAN: Acute on chronic. According to the patient's sister, he has been in and out of the hospital ever since August after having hernia surgery. He has not been home since then. PT OT evaluate and treat PLAN: Plan Chronic conditions Atrial fibrillation: Apixaban to be held given the bleeding, continue with pantoprazole. Resume apixaban on 10/21, if no further bleeding. History of duodenal ulcers: No evidence currently. Prostate cancer: Patient on tamsulosin, finasteride and terazosin. AML per history. Patient has been given prognosis of months to about a year. Has been deemed not A candidate for chemotherapy given his debility and multiple medical comorbidities. Gout: Continue allopurinol Chronic anemia: Continue with ferrous sulfate VTE prophylaxis: High risk for chemical prophylaxis given the anemia and GI bleed. SCDs. CODE STATUS: Addressed with the patient and his sister at bedside. Patient is DNR Comfort Care arrest no intubation. Requested records from [facility] where patient has had much of his testing and specialists. Still no results. Charges/Coding Visit Charges Inpatient E&M: 15775 Subs Hosp L2
[2022-10-17] MEDS: Allopurinol 100 MG Tablet 150 MG PO (09:18)
[2022-10-17] MEDS: Furosemide 20 MG Tablet PO (09:18)
[2022-10-17] MEDS: Erythromycin Base 1 OPTH.TUBE 1 APPLIC LEFT EYE ×4 (09:19→22:52)
[2022-10-17] MEDS: Doxazosin 1 MG Tablet 2 MG PO (09:20)
[2022-10-17] MEDS: Finasteride 5 MG Tablet PO (09:21)
[2022-10-17] MEDS: Metoprolol Tartrate 25 MG Tablet PO ×2 (09:23→22:55)
[2022-10-17] MEDS: Ferrous Sulfate 325 MG Tablet PO (09:25)
[2022-10-17] MEDS: Potassium Chloride Oral Tablet 10 MEQ PO ×2 (09:27→18:07)
[2022-10-17] MEDS: Ensure Clear 120 ML Liquid PO ×3 (15:11→22:54)
[2022-10-17] MEDS: Tamsulosin HCl 0.4 MG Capsule PO (18:07)
[2022-10-18] VITALS (7 sets, daily range): BP systolic 106–139; BP diastolic 59–76; PULSE 53–90; RESP 16–20; TEMP 36.4–36.6; O2SAT 93–98
[2022-10-18] MEDS: Sucralfate 1 GM Tablet PO ×2 (06:25→16:10)
--- NOTE | 2022-10-18 07:00 | EX.PCM.PN.GI ---
Subjective Subjective Patient is doing well without any complaints. He has been tolerating a diet without any problems. He has not had any more signs or symptoms of GI bleeding at this time. Objective Data Objective Data Vital Signs: Vital Signs Temp Pulse Resp BP Pulse Ox O2 Del Method O2 Flow Rate 97.6 F L 68 18 106/59 L 95 Nasal Cannula 2 10/18/22 14:44 10/18/22 14:44 10/18/22 14:44 10/18/22 14:44 10/18/22 14:44 10/18/22 14:45 10/18/22 14:45 Oxygen Flow Rate (L/min) 2 Oxygen Delivery Method Nasal Cannula Weight: 174 lb Body Mass Index (BMI) 26.4 Intake & Output: Intake and Output for Last 24 Hours 10/16/22 10/17/22 10/18/22 23:59 23:59 23:59 Intake Total 1334.5 / 1334.5 1032.83 / 1032.83 192.33 / 192.33 Output Total 250 / 250 400 / 400 250 / 250 Balance 1084.5 / 1084.5 632.83 / 632.83 -57.67 / -57.67 Lab / Micro Data 10/18/22 07:36 10/17/22 05:33 Labs: Laboratory Results - last 24 hr 10/18/22 07:36: WBC 5.0, RBC 2.64 L, Hgb 8.0 L, Hct 25.9 L, MCV 98.1 H, MCH 30.3, MCHC 30.9 L, RDW Std Deviation 72.0 H, RDW Coeff of Jero 20.8 H, Plt Count 84 L, MPV 11.0, Immature Gran % (Auto) WATER LEAK REPAIRER, Neut % (Auto) WATER LEAK REPAIRER, Lymph % (Auto) WATER LEAK REPAIRER, [place] % (Auto) WATER LEAK REPAIRER, Eos % (Auto) WATER LEAK REPAIRER, Baso % (Auto) WATER LEAK REPAIRER, Absolute Neuts (auto) 3.3, Absolute Lymphs (auto) 1.11, Total Counted 100, Neutrophils % (Manual) 70, Lymphocytes % (Manual) 28, Monocytes % (Manual) 2, Nucleated RBC % 3.2, Differential Comment , Diff Path Review May , Platelet Estimate MKD DEC, Hypochromasia 1+, Anisocytosis 2+, Microcytosis 1+, Macrocytosis 1+ Micro: Microbiology 10/18/22 12:35 Nasal Secretion SARS-CoV-2 Antigen (Rapid) - Final 10/15/22 16:55 Stool Stool Occult Blood (MAGDALENA) - Final Radiography Diagnostic Testing: Radiology Impression Chest X-Ray 10/15/22 15:55 IMPRESSION: Prominently elevated left hemidiaphragm versus diaphragmatic hernia. Complex pulmonary densities in the lower left hemithorax. CT scan recommended for better evaluation. Electronically Signed: Craig Whitaker MD at 16:35 EDT , Physical Exam Const alert and no apparent distress HEENT head/scalp atraumatic Resp normal respiratory effort, no retractions, no use of accessory muscles and clear to auscultation bilaterally Cardio regular rate, regular rhythm, S1 normal heart sound and S2 normal heart sound GI normal to inspection, nondistended, normoactive bowel sounds Assessment & Plan Assessment/Plan (1) AML (acute myeloblastic leukemia): (2) Afib: QUALIFIERS: Atrial fibrillation type: unspecified chronic Qualified Code(s): I48.20 - Chronic atrial fibrillation, unspecified (3) GI bleed: QUALIFIERS: GI bleed type/associated pathology: unspecified gastrointestinal hemorrhage type Qualified Code(s): K92.2 - Gastrointestinal hemorrhage, unspecified (4) Acute blood loss anemia: PLAN: Plan 87-year-old with multiple comorbidities including AML status postchemotherapy and A-fib with RVR on anticoagulation who came in with acute blood loss anemia. He underwent an upper endoscopy and the findings were: non-severe esophagitis with no bleeding was found 39 to 42 cm from the incisors. A small hiatal hernia was present. Two 5 mm bleeding angiodysplastic lesions were found in the cardia. Coagulation for hemostasis using heater probe was successful. Estimated blood loss was minimal. Three oozing cratered gastric ulcers with a visible vessel were found in the gastric body. The largest lesion was 6 mm in largest dimension. Area was successfully injected with 5 mL of a 1:10,000 solution of epinephrine for drug delivery. Estimated blood loss was minimal. Recommendation: Patient is not a anticoagulation candidate at this time. He will need to take Protonix 40 mg p.o. twice daily and Carafate 1 g p.o. 3 times daily. He needs better nutrition. I will encourage Ensure 1 can p.o. 3 times daily for healing purposes x4 to 6 weeks. Repeat upper endoscopy in approximately 8 weeks to ensure healing. Charges/Coding Visit Charges Inpatient E&M: 47282 [facility] Hosp L3
--- NOTE | 2022-10-18 07:21 | PCM.PN.HOSP ---
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 Objective Data Objective Data Vital Signs: Vital Signs Temp Pulse Resp BP Pulse Ox O2 Del Method O2 Flow Rate 36.6 C 74 16 107/67 96 Nasal Cannula 2 10/18/22 03:53 10/18/22 03:53 10/18/22 03:53 10/18/22 03:53 10/18/22 07:08 10/18/22 07:08 10/18/22 07:08 Oxygen Flow Rate (L/min) 2 Oxygen Delivery Method Nasal Cannula Weight: 78.925 kg Body Mass Index (BMI) 26.4 Intake & Output: Intake and Output for Last 24 Hours 10/16/22 10/17/22 10/18/22 23:59 23:59 23:59 Intake Total 1334.5 / 1334.5 1032.83 / 1032.83 92.33 / 92.33 Output Total 250 / 250 400 / 400 Balance 1084.5 / 1084.5 632.83 / 632.83 92.33 / 92.33 Lab / Micro Data 10/18/22 07:36 10/17/22 05:33 Micro: Microbiology 10/15/22 16:55 Stool Stool Occult Blood (MAGDALENA) - Final Physical Exam Const alert and no apparent distress HEENT head/scalp atraumatic Resp normal respiratory effort, no retractions, no use of accessory muscles and clear to auscultation bilaterally Cardio regular rate, regular rhythm, S1 normal heart sound and S2 normal heart sound GI normal to inspection, nondistended, normoactive bowel sounds Assessment & Plan Assessment/Plan (1) GI bleed: QUALIFIERS: GI bleed type/associated pathology: unspecified gastrointestinal hemorrhage type Qualified Code(s): K92.2 - Gastrointestinal hemorrhage, unspecified PLAN: 2/2 gastric ulcers, angiodysplastic lesions while on apixaban EGD on 10/15: non-severe erosive esophagitis, small HH, 2 bleeding angiodysplastic in the stomach (treated w heater probe), oozing gastric ulcers w visible vessel (injected). Protonix gtt (was on boluses prior to EGD). Continue for 72h (through 10/18) Sucralfate. (2) Acute blood loss anemia: PLAN: Admission hemoglobin 6.5 Improved to 8.4 after 2 units of PRBCs. Currently 8.2 (3) Debility: PLAN: Acute on chronic. According to the patient's sister, he has been in and out of the hospital ever since August after having hernia surgery. He has not been home since then. PT OT evaluate and treat PLAN: Plan Chronic conditions Atrial fibrillation: Apixaban to be held given the bleeding, continue with pantoprazole. Resume apixaban on 10/21, if no further bleeding. History of duodenal ulcers: No evidence currently. Prostate cancer: Patient on tamsulosin, finasteride and terazosin. AML per history. Patient has been given prognosis of months to about a year. Has been deemed not A candidate for chemotherapy given his debility and multiple medical comorbidities. Gout: Continue allopurinol Chronic anemia: Continue with ferrous sulfate VTE prophylaxis: High risk for chemical prophylaxis given the anemia and GI bleed. SCDs. CODE STATUS: Addressed with the patient and his sister at bedside. Patient is DNR Comfort Care arrest no intubation. Requested records from [facility] where patient has had much of his testing and specialists. Still no results. Charges/Coding Visit Charges Inpatient E&M: 75104 Subs Hosp L2
[2022-10-18 07:53] LABS: Absolute Lymphocyte Count 1.11 X10^3/uL (0.83-4.51); Absolute Neutrophil Count 3.3 X10^3/uL (2.0-7.7); Basophil# 0.01 X10^3/uL; Eosinophil# 0.01 X10^3/uL; Hematocrit 25.9 % (40-54); Lymphocyte # 1.11 X10^3/ul (0.83-4.51); Mean Corp Hgb Conc 30.9 g/dL (32-36); Mean Corpuscular Hgb 30.3 pg (27.0-32.0); Mean Corpuscular Volume 98.1 fL (80-94); Monocyte# 0.31 X10^3/uL; NRBC Flagged by Analyzer 3.2 % (0-5); Neutrophil # 3.26 X10^3/uL (2.7-7.7); POSITIVE COUNT YES; POSITIVE MORPHOLOGY YES; Platelet Count 84 K/mm3 (150-450); RBC Distribution Width CV 20.8 % (11.6-14.6); Red Blood Count 2.64 M/mm3 (4.6-6.2)
[2022-10-18 07:58] LABS: Differential Indicated SCAN CRITERIA MET
[2022-10-18 07:59] LABS: Scan Smear per Review Criteria MANUAL DIFF
[2022-10-18 08:21] LABS: Lymphocyte 28 % (19-41); Monocyte 2 % (0-10); Neutrophil-Segmented 70 % (47-70); Total Cells Counted 100 (MANUAL DIFF)
[2022-10-18 08:26] LABS: Platelet Estimate MKD DEC (ADEQ)
[2022-10-18 08:27] LABS: Anisocytosis 2+; Macrocytosis 1+; Microcytosis 1+
[2022-10-18 08:28] LABS: Hypochromasia 1+
[2022-10-18] MEDS: Finasteride 5 MG Tablet PO (08:56)
[2022-10-18] MEDS: Ferrous Sulfate 325 MG Tablet PO (08:56)
[2022-10-18] MEDS: Doxazosin 1 MG Tablet 2 MG PO (08:56)
[2022-10-18] MEDS: Potassium Chloride Oral Tablet 10 MEQ PO ×2 (08:56→16:10)
[2022-10-18] MEDS: Metoprolol Tartrate 25 MG Tablet PO (08:56)
[2022-10-18] MEDS: Furosemide 20 MG Tablet PO (08:56)
[2022-10-18] MEDS: Allopurinol 100 MG Tablet 150 MG PO (08:56)
[2022-10-18] MEDS: Ensure Clear 120 ML Liquid PO ×3 (08:56→17:08)
[2022-10-18] MEDS: Erythromycin Base 1 OPTH.TUBE 1 APPLIC LEFT EYE ×3 (08:57→17:08)
[2022-10-18] MEDS: Ipratropium/Albuterol Sulfate 3 ML AMPUL.NEB INHALATION (09:21)
--- NOTE | 2022-10-18 10:14 | CASEMGMT ---
Discharge Planning Patient resides at [facility] and wishes to return. [facility] Asked if patient can return skilled. Awaiting response. Clara Krause, Discharge Planning Asst.
--- NOTE | 2022-10-18 10:17 | CASEMGMT ---
Social Work SW spoke w/pt in room in regard to discharge plan, inquired if he wanted to return to [facility]. Pt not certain of where he has been staying, states had not thought about the plan of where he would go from here. SW stated to pt saw that his sister was in the independent living at [facility]. Pt states that she is in her own apartment, did know that it is near where he is. Pt was able to confirm Elan Joaquin is his POA, and that this is his nephew. Pt knows he is in [place], thought it was Tuesday, knows it's 2022, unsure of the month, thought it was June. Pt able to tell SW moved here from [facility]. Pt states is from [place] originally, moved to [place] in 1967. 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 Pt gave SW permission to call his sister Alley. SW called Alley. SW confirmed the plan is for pt to return to [facility] at discharge. No SNF list needed. She states he is there private pay. She states pt had surgery August 02 in [place], and has been in and out of the hospital and rehab since then. She states their nephew Elan went to get pt from [place]. She states he was here one day and went to the ED, then to [facility]. Pt was there one day then came to the hospital. She did confirm Elan is pt's POA, gave SW his number, . She states he will not be up yet, SW will call him later to confirm the plan. PANCHO explained we will find out if pt can return to [facility] under Medicare or if it will be private pay. Also, pt is to go later today back to [facility], has to finish some medication first that will not be completed until 5pm. SW explained will send pt in a w/c van, and that pt will get a bill for this. Pt's sister states understanding, just asked to be kept informed. PANCHO spoke w/d/c network planner Clara, she will send updates to [facility], confirm they can take pt back and see if they will take him back skilled. PANCHO will call nephew later this morning since he is pt's POA, to confirm the plan w/him as well. PANCHO will continue to follow. PARVEZ Gonzalez
--- NOTE | 2022-10-18 12:13 | CASEMGMT ---
Social Work [facility] did say they can take pt back today, though it will be private pay as pt's insurance is a [place] product that needs converted to insurance here. SW spoke w/pt's VERENA Joaquin, he confirms plan is to return to [facility] today, no list of SNFs needed. SW did let Elan know that pt will go back later today, likely around 6pm, and he may get a bill for the transportation. Elan states understanding. SW let Elan know also the information about insurance above. SW texted physician to let him know pt can return to [facility] later today. SW also did call pt's sister Alley, let her know what [facility] said about insurance. She states the insurance adviser told her pt would be covered for 90 days during the transition. SW explained that she should follow up w/[facility] about this, and perhaps have her insurance person speak w/them directly. Alley states understanding. SW let her know that the plan is for pt to go back over to [facility] around 6pm this evening. Alley states understanding. SW will continue to follow for discharge to [facility] later today. PARVEZ Gonzalez
--- NOTE | 2022-10-18 12:57 | PCM.TXEXTCAR ---
Diet Diet Order/Speech Therapy: 10/18/22 12:17 Diet: Regular - General Is pt able to select menu?: Yes Routine Orders/Code Status Routine Lab Work: CBC and BMP Therapies Physical Therapy: Eval and Treat Occupational Therapy: Eval and Treat Problem/Diagnosis (1) GI bleed: Status: Acute Code(s): K92.2 - Gastrointestinal hemorrhage, unspecified Plan: 2/2 gastric ulcers, angiodysplastic lesions while on apixaban EGD on 10/15: non-severe erosive esophagitis, small HH, 2 bleeding angiodysplastic in the stomach (treated w heater probe), oozing gastric ulcers w visible vessel (injected). Protonix gtt (was on boluses prior to EGD). Continue for 72h (through 10/18) Sucralfate. (2) Acute blood loss anemia: Status: Acute Code(s): D62 - Acute posthemorrhagic anemia Plan: Admission hemoglobin 6.5 Improved to 8.4 after 2 units of PRBCs. Currently 8.2 (3) Debility: Status: Acute Code(s): R53.81 - Other malaise Plan: Acute on chronic. According to the patient's sister, he has been in and out of the hospital ever since August after having hernia surgery. He has not been home since then. PT OT evaluate and treat Plan Chronic conditions Atrial fibrillation: Apixaban to be held given the bleeding, continue with pantoprazole. Resume apixaban on 10/21, if no further bleeding. History of duodenal ulcers: No evidence currently. Prostate cancer: Patient on tamsulosin, finasteride and terazosin. AML per history. Patient has been given prognosis of months to about a year. Has been deemed not A candidate for chemotherapy given his debility and multiple medical comorbidities. Gout: Continue allopurinol Chronic anemia: Continue with ferrous sulfate VTE prophylaxis: High risk for chemical prophylaxis given the anemia and GI bleed. SCDs. CODE STATUS: Addressed with the patient and his sister at bedside. Patient is DNR Comfort Care arrest no intubation. Requested records from [facility] where patient has had much of his testing and specialists. Still no results. Allergies/Procedures Done in Hospital Allergies No Known Allergies Allergy (Verified 10/15/22 14:23) Procedures: None and EGD Type of Care/Length of Stay Estimated LOS: Convalescent Care Less Than 30 days Type of Care Needed: Skilled Rehab Potential: Fair Prognosis: Good Additional Orders/Day of Discharge Day of Discharge: 10/18/22 Dietary and Speech Recommendations Dietitian Recommendations/Changes: ADAT to Low Fiber diet when medically able to manage medical conditions. Discharge Plan Admission Admit Date/Time: 10/15/22 16:43 Primary Reason for Your Visit: GI bleed. acute blood loss anemia. Attending Provider: Farhad Gomes Primary Care Provider: Care Physician,Maria Antonia Primary Discharge Orders/Prescriptions Prescriptions: New Ensure Clear Liquid 120 ml PO 4X/DAY Qty: 0 0RF sucralfate 1 gram Tablet 1 g PO 0700,1600 Qty: 0 0RF erythromycin 5 mg/gram (0.5 %) Ointment 1 applic LEFT EYE 4X/DAY Qty: 0 0RF Continued acetaminophen 325 mg capsule 650 mg PO Q4H PRN (Reason: fever or pain) allopurinol 100 mg tablet 150 mg PO DAILY ferrous sulfate [Feosol] 325 mg (65 mg iron) tablet 325 mg PO DAILY finasteride 5 mg tablet 5 mg PO DAILY Rx Instructions: QHS furosemide 20 mg tablet 20 mg PO DAILY ipratropium-albuterol 0.5 mg-3 mg(2.5 mg base)/3 mL solution for nebulization 3 ml inhalation Q4H PRN (Reason: shortness of breath) metoprolol tartrate 25 mg tablet 25 mg PO BID potassium chloride [K-Tab] 10 mEq tablet extended release 10 meq PO BID sennosides [Natural Senna Laxative] 8.6 mg tablet 17.2 mg PO QHS tamsulosin [Flomax] 0.4 mg capsule 0.4 mg PO DAILY terazosin 2 mg capsule 2 mg PO DAILY hydrocodone-acetaminophen 5-325 mg tablet 1 tab PO Q4H PRN (Reason: pain) 3 Days Qty: 12 0RF Changed pantoprazole 40 mg tablet,delayed release (DR/EC) 40 mg PO BIDCM Qty: 60 0RF Held Eliquis 5 mg tablet 5 mg PO BID Hold Instructions: Resume on 10/21/22. Referrals / Follow Up: Care Physician,No Primary [Primary Care Provider] - [facility] [Provider Group] - Within 3 Months Disposition Disposition (needs filled in before D/C Order can be placed): [facility] Facility (1) GI bleed Qualifiers: GI bleed type/associated pathology: unspecified gastrointestinal hemorrhage type Qualified Code(s): K92.2 - Gastrointestinal hemorrhage, unspecified
--- NOTE | 2022-10-18 13:07 | PCM.DC.SUM ---
Providers Date of Admission: 10/15/22 Primary Care Physician: Maria Antonia Primary Care Phys Consultations 10/15/22 19:48 Consult: Gastroenterology Routine Consulting Provider: [facility] Reason for Consult: GI bleed EMERGENT Consult: No MD Notified: Yes Date Notified: 10/15/22 Time Notified: 16:47 Method of Notification: ED Physician Initiated Reason For Visit: GI BLEED Diagnosis Discharge Diagnosis (1) GI bleed: Status: Acute Code(s): K92.2 - Gastrointestinal hemorrhage, unspecified Qualifiers: GI bleed type/associated pathology: unspecified gastrointestinal hemorrhage type Qualified Code(s): K92.2 - Gastrointestinal hemorrhage, unspecified Plan: 2/2 gastric ulcers, angiodysplastic lesions while on apixaban EGD on 10/15: non-severe erosive esophagitis, small HH, 2 bleeding angiodysplastic in the stomach (treated w heater probe), oozing gastric ulcers w visible vessel (injected). Protonix gtt (was on boluses prior to EGD). Continue for 72h (through 10/18) Sucralfate. (2) Acute blood loss anemia: Status: Acute Code(s): D62 - Acute posthemorrhagic anemia Plan: Admission hemoglobin 6.5 Improved to 8.4 after 2 units of PRBCs. Currently 8.2 (3) Debility: Status: Acute Code(s): R53.81 - Other malaise Plan: Acute on chronic. According to the patient's sister, he has been in and out of the hospital ever since August after having hernia surgery. He has not been home since then. PT OT evaluate and treat Plan Chronic conditions Atrial fibrillation: Apixaban to be held given the bleeding, continue with pantoprazole. Resume apixaban on 10/21, if no further bleeding. History of duodenal ulcers: No evidence currently. Prostate cancer: Patient on tamsulosin, finasteride and terazosin. AML per history. Patient has been given prognosis of months to about a year. Has been deemed not A candidate for chemotherapy given his debility and multiple medical comorbidities. Gout: Continue allopurinol Chronic anemia: Continue with ferrous sulfate VTE prophylaxis: High risk for chemical prophylaxis given the anemia and GI bleed. SCDs. CODE STATUS: Addressed with the patient and his sister at bedside. Patient is DNR Comfort Care arrest no intubation. Requested records from [facility] where patient has had much of his testing and specialists. Still no results. Medications at Discharge Home Medications acetaminophen 325 mg capsule 650 mg PO Q4H PRN fever or pain 10/15/22 allopurinol 100 mg tablet 150 mg PO DAILY 10/15/22 apixaban 5 mg tablet (Eliquis) 5 mg PO BID 10/15/22 ferrous sulfate 325 mg (65 mg iron) tablet (Feosol) 325 mg PO DAILY anemia 10/15/22 finasteride 5 mg tablet 5 mg PO DAILY prostate 10/15/22 furosemide 20 mg tablet 20 mg PO DAILY 10/15/22 ipratropium 0.5 mg-albuterol 3 mg (2.5 mg base)/3 mL nebulization soln 3 ml inhalation Q4H PRN shortness of breath 10/15/22 metoprolol tartrate 25 mg tablet 25 mg PO BID 10/15/22 potassium chloride 10 mEq tablet,extended release (K-Tab) 10 meq PO BID 10/15/22 sennosides 8.6 mg tablet (Natural Senna Laxative) 17.2 mg PO QHS 10/15/22 tamsulosin 0.4 mg capsule (Flomax) 0.4 mg PO DAILY 10/15/22 terazosin 2 mg capsule 2 mg PO DAILY 10/15/22 erythromycin 5 mg/gram (0.5 %) eye ointment 1 applic LEFT EYE 4X/DAY #0 grams 10/18/22 food supplemt, lactose-reduced (Ensure Clear oral liquid) 120 ml PO 4X/DAY #0 mL 10/18/22 hydrocodone-acetaminophen 5-325mg 5mg-325mg 1 tab PO Q4H PRN pain 3 days #12 tabs 10/18/22 pantoprazole 40 mg tablet,delayed release 40 mg PO BIDCM #60 tabs 10/18/22 sucralfate 1 gram tablet 1 g PO 0700,1600 #0 tabs 10/18/22 Hospital Course Operations None Procedures Colonoscopy and EGD Summary of Care Provided Minutes Spent on Discharge: 32 Weight / BMI Weight Weight: 78.925 kg Body Mass Index (BMI) 26.4 ABG / Lab / Microbiology Data 10/18/22 07:36 10/17/22 05:33 Laboratory: Laboratory Results - last 24 hr 10/18/22 07:36: WBC 5.0, RBC 2.64 L, Hgb 8.0 L, Hct 25.9 L, MCV 98.1 H, MCH 30.3, MCHC 30.9 L, RDW Std Deviation 72.0 H, RDW Coeff of Jero 20.8 H, Plt Count 84 L, MPV 11.0, Immature Gran % (Auto) PASSENGER INTERLINE CLERK, Neut % (Auto) PASSENGER INTERLINE CLERK, Lymph % (Auto) PASSENGER INTERLINE CLERK, Kimball % (Auto) PASSENGER INTERLINE CLERK, Eos % (Auto) PASSENGER INTERLINE CLERK, Baso % (Auto) PASSENGER INTERLINE CLERK, Absolute Neuts (auto) 3.3, Absolute Lymphs (auto) 1.11, Total Counted 100, Neutrophils % (Manual) 70, Lymphocytes % (Manual) 28, Monocytes % (Manual) 2, Nucleated RBC % 3.2, Differential Comment , Diff Path Review May foll, Platelet Estimate MKD DEC, Hypochromasia 1+, Anisocytosis 2+, Microcytosis 1+, Macrocytosis 1+ Microbiology: Microbiology 10/15/22 16:55 Stool Stool Occult Blood (MAGDALENA) - Final Radiography Diagnostic Testing: Radiology Impression Chest X-Ray 10/15/22 15:55 IMPRESSION: Prominently elevated left hemidiaphragm versus diaphragmatic hernia. Complex pulmonary densities in the lower left hemithorax. CT scan recommended for better evaluation. Electronically Signed: Craig Whitaker MD at 16:35 EDT , Meaningful Use Info Meaningful Use Diagnoses (Choose all that apply): None applicable Discharge Plan Admission Admit Date/Time: 10/15/22 16:43 Primary Reason for Your Visit: GI bleed. acute blood loss anemia. Attending Provider: Farhad Gomes Primary Care Provider: Care Physician,Maria Antonia Primary Discharge Orders/Prescriptions Prescriptions: New Ensure Clear Liquid 120 ml PO 4X/DAY Qty: 0 0RF sucralfate 1 gram Tablet 1 g PO 0700,1600 Qty: 0 0RF erythromycin 5 mg/gram (0.5 %) Ointment 1 applic LEFT EYE 4X/DAY Qty: 0 0RF Continued acetaminophen 325 mg capsule 650 mg PO Q4H PRN (Reason: fever or pain) allopurinol 100 mg tablet 150 mg PO DAILY ferrous sulfate [Feosol] 325 mg (65 mg iron) tablet 325 mg PO DAILY finasteride 5 mg tablet 5 mg PO DAILY Rx Instructions: QHS furosemide 20 mg tablet 20 mg PO DAILY ipratropium-albuterol 0.5 mg-3 mg(2.5 mg base)/3 mL solution for nebulization 3 ml inhalation Q4H PRN (Reason: shortness of breath) metoprolol tartrate 25 mg tablet 25 mg PO BID potassium chloride [K-Tab] 10 mEq tablet extended release 10 meq PO BID sennosides [Natural Senna Laxative] 8.6 mg tablet 17.2 mg PO QHS tamsulosin [Flomax] 0.4 mg capsule 0.4 mg PO DAILY terazosin 2 mg capsule 2 mg PO DAILY hydrocodone-acetaminophen 5-325 mg tablet 1 tab PO Q4H PRN (Reason: pain) 3 Days Qty: 12 0RF Changed pantoprazole 40 mg tablet,delayed release (DR/EC) 40 mg PO BIDCM Qty: 60 0RF Held Eliquis 5 mg tablet 5 mg PO BID Hold Instructions: Resume on 10/21/22. Referrals / Follow Up: [facility] [Provider Group] - Within 3 Months Care Physician,No Primary [Primary Care Provider] - Disposition Disposition (needs filled in before D/C Order can be placed): Intermediate Facility Charges/Coding Visit Charges Inpatient E&M: 50120 Disch Hosp >30min
--- NOTE | 2022-10-18 14:09 | PHA.DC.MR.R ---
Pharmacy PR Med Reconciliation Pharmacy Service has performed discharge medication reconciliation for this patient. The patient's discharge medication list was reviewed for discrepancies and discrepancies were resolved. Medications at Discharge Home Medications acetaminophen 325 mg capsule 650 mg PO Q4H PRN fever or pain 10/15/22 allopurinol 100 mg tablet 150 mg PO DAILY 10/15/22 apixaban 5 mg tablet (Eliquis) 5 mg PO BID 10/15/22 ferrous sulfate 325 mg (65 mg iron) tablet (Feosol) 325 mg PO DAILY anemia 10/15/22 finasteride 5 mg tablet 5 mg PO DAILY prostate 10/15/22 furosemide 20 mg tablet 20 mg PO DAILY 10/15/22 ipratropium 0.5 mg-albuterol 3 mg (2.5 mg base)/3 mL nebulization soln 3 ml inhalation Q4H PRN shortness of breath 10/15/22 metoprolol tartrate 25 mg tablet 25 mg PO BID 10/15/22 potassium chloride 10 mEq tablet,extended release (K-Tab) 10 meq PO BID 10/15/22 sennosides 8.6 mg tablet (Natural Senna Laxative) 17.2 mg PO QHS 10/15/22 tamsulosin 0.4 mg capsule (Flomax) 0.4 mg PO DAILY 10/15/22 terazosin 2 mg capsule 2 mg PO DAILY 10/15/22 erythromycin 5 mg/gram (0.5 %) eye ointment 1 applic LEFT EYE 4X/DAY #0 grams 10/18/22 food supplemt, lactose-reduced (Ensure Clear oral liquid) 120 ml PO 4X/DAY #0 mL 10/18/22 hydrocodone-acetaminophen 5-325mg 5mg-325mg 1 tab PO Q4H PRN pain 3 days #12 tabs 10/18/22 pantoprazole 40 mg tablet,delayed release 40 mg PO BIDCM #60 tabs 10/18/22 sucralfate 1 gram tablet 1 g PO 0700,1600 #0 tabs 10/18/22
--- NOTE | 2022-10-18 14:25 | CASEMGMT ---
Social Work Per physician, pt is ready for discharge. Discharge orders and covid results sent to [facility] via [facility]. [facility] for 6:00 grape picker via wheelchair van. Pt, family, nurse and [facility] updated. Disposition: [facility], intermedicate level of care DAVEY Anguiano
[2022-10-18] MEDS: Tamsulosin HCl 0.4 MG Capsule PO (17:08)
[2022-10-19 12:06] LABS: Pathologist Review Reviewed
[2022-10-19 12:06] LABS: Pathologist Review Reviewed
[2022-10-19 12:33] LABS: Pathologist Review Reviewed
== END 2022-10-18 17:43 | disposition skilled nursing facility (03) | DRG 378 ==
LOC: ED 16:22 → MS3 17:03
PROVIDERS: Internal Medicine Gastroenterology; Emergency Provider Student in an Organized Health Care Education/Training Program
PROC: 0DJ08ZZ Inspection of Upper Intestinal Tract, Via Natural or Artificial Opening Endoscopic (ICD-10-PCS; CPT 43235; principal; 2022-10-15 18:45)
DX: K25.4 Chronic or unspecified gastric ulcer with hemorrhage (principal); C92.00 Acute myeloblastic leukemia, not having achieved remission; I48.20 Chronic atrial fibrillation, unspecified; D62 Acute posthemorrhagic anemia; K22.10 Ulcer of esophagus without bleeding; C61 Malignant neoplasm of prostate; I11.0 Hypertensive heart disease with heart failure; I50.9 Heart failure, unspecified; K44.9 Diaphragmatic hernia without obstruction or gangrene; D50.9 Iron deficiency anemia, unspecified; K26.9 Duodenal ulcer, unspecified as acute or chronic, without hemorrhage or perforation; Z79.01 Long term (current) use of anticoagulants; R53.81 Other malaise; Z87.891 Personal history of nicotine dependence; K31.811 Angiodysplasia of stomach and duodenum with bleeding
CPT/HCPCS: 36415; 71045; 80048; 80076; 82140; 82274; 84484; 85025; 85610; 86850; 86900; 86901; 86920; 86922; 87811; 93005; 94640; 94760; 97110; 97116; 97162; 97165; 97530; 97535; 97802; 99285; J7040; J7050; P9016; A4216; J1940

== ENCOUNTER → 2022-10-15 | Outpatient (REF) | payer MEDICARE, SELFPAY ==
[2022-10-15 06:43] LABS: Hematocrit 19.7 % (40-54); Hemoglobin 6.1 g/dL (13.0-16.5); Mean Corpuscular Hgb 31.6 pg (27.0-32.0); Mean Corpuscular Volume 102.1 fL (80-94); Mean Platelet Vol. 11.7 fl (6.2-12.0); POSITIVE COUNT YES; POSITIVE MORPHOLOGY YES; Platelet Count 103 K/mm3 (150-450); RBC Distribution Width CV 22.5 % (11.6-14.6); RBC Distribution Width SD 80.2 fl (35.1-43.9); Red Blood Count 1.93 M/mm3 (4.6-6.2); White Blood Count 9.7 K/mm3 (4.4-11.0)
[2022-10-15 06:54] LABS: Differential Indicated MANUAL DIFF
[2022-10-15 07:24] LABS: ALB/GLOB Ratio 1.1 RATIO (0.9-2.4); AST(SGOT) 17 U/L (15-37); Alanine Aminotransfer ALT/SGPT 27 U/L (16-61); Alkaline Phosphatase 121 U/L (45-117); Anion Gap 4 (5-15); BUN 24 mg/dL (7-18); BUN/Creat Ratio 29.5 RATIO (10-20); Calcium,Total 8.4 mg/dL (8.5-10.1); Chloride 108 mmol/L (98-107); Creatinine, Serum 0.81 mg/dL (0.70-1.30); EST Glomerular Filtration Rate 96 mL/min (>60); Est Glom Filt Rate - Afr Amer 116 mL/min (>60); Globulin 2.7 g/dL (2.2-4.2); Glucose 96 mg/dL (74-106); Metamyelocyte 5 % (0-1); Neutrophil-Band 3 % (0-5); Neutrophil-Segmented 76 % (47-70); Potassium 4.1 mmol/L (3.5-5.1); Protein, Total 5.7 g/dL (6.4-8.2); Sodium Level 144 mmol/L (136-145); Total Cells Counted 100 (MANUAL DIFF)
[2022-10-15 07:25] LABS: Lymphocyte 12 % (19-41); Monocyte 3 % (0-10); Myelocyte 1 % (0-0)
[2022-10-15 07:26] LABS: Absolute Lymphocyte Count 1.16 X10^3/uL (0.83-4.51); Absolute Neutrophil Count 7.7 X10^3/uL (2.0-7.7)
[2022-10-15 10:50] LABS: Pathologist Review Reviewed
== END ==
LOC: OLS.WHLTCC 05:00
PROVIDERS: Visit Provider Internal Medicine
DX: I50.9 Heart failure, unspecified (principal); G93.40 Encephalopathy, unspecified; J96.01 Acute respiratory failure with hypoxia; J90 Pleural effusion, not elsewhere classified; F03.90 Unspecified dementia, unspecified severity, without behavioral disturbance, psychotic disturbance, mood disturbance, and anxiety
CPT/HCPCS: 36415; 80053; 82140; 84443; 85025

== ENCOUNTER → 2022-10-21 | Outpatient (REF) | payer MEDICARE, SELFPAY ==
[2022-10-21 09:52] LABS: Hemoglobin 7.6 g/dL (13.0-16.5); Mean Corp Hgb Conc 30.4 g/dL (32-36); Mean Platelet Vol. 10.9 fl (6.2-12.0); POSITIVE COUNT YES; POSITIVE MORPHOLOGY YES; Platelet Count 77 K/mm3 (150-450); RBC Distribution Width CV 20.2 % (11.6-14.6); RBC Distribution Width SD 74.3 fl (35.1-43.9); Red Blood Count 2.45 M/mm3 (4.6-6.2); White Blood Count 3.6 K/mm3 (4.4-11.0)
[2022-10-21 09:53] LABS: Differential Indicated MANUAL DIFF
[2022-10-21 10:06] LABS: ALB/GLOB Ratio 1.2 RATIO (0.9-2.4); AST(SGOT) 15 U/L (15-37); Alanine Aminotransfer ALT/SGPT 22 U/L (16-61); Albumin, Serum 3.2 g/dL (3.2-5.0); Alkaline Phosphatase 156 U/L (45-117); Anion Gap 3 (5-15); BUN 20 mg/dL (7-18); BUN/Creat Ratio 27.9 RATIO (10-20); Calcium,Total 8.8 mg/dL (8.5-10.1); Chloride 105 mmol/L (98-107); Creatinine, Serum 0.72 mg/dL (0.70-1.30); EST Glomerular Filtration Rate 111 mL/min (>60); Est Glom Filt Rate - Afr Amer 134 mL/min (>60); Globulin 2.7 g/dL (2.2-4.2); Glucose 90 mg/dL (74-106); Potassium 4.1 mmol/L (3.5-5.1); Protein, Total 5.9 g/dL (6.4-8.2); Sodium Level 143 mmol/L (136-145)
[2022-10-21 11:05] LABS: Blast 2 % (0-0); Lymphocyte 33 % (19-41); Monocyte 5 % (0-10); Neutrophil-Segmented 60 % (47-70); Platelet Estimate MOD DEC (ADEQ); Red Cell Morphology NORM C+C NORMAL (NORM C&C); Total Cells Counted 100 (MANUAL DIFF)
[2022-10-21 11:11] LABS: Absolute Neutrophil Count 2.2 X10^3/uL (2.0-7.7)
[2022-10-25 13:48] LABS: Pathologist Review Reviewed
== END ==
LOC: OLS.WHLTCC 05:00
PROVIDERS: Visit Provider Internal Medicine
DX: I50.9 Heart failure, unspecified (principal); G93.40 Encephalopathy, unspecified; J96.01 Acute respiratory failure with hypoxia; J90 Pleural effusion, not elsewhere classified; F03.90 Unspecified dementia, unspecified severity, without behavioral disturbance, psychotic disturbance, mood disturbance, and anxiety
CPT/HCPCS: 36415; 80053; 82140; 85025

== ENCOUNTER → 2022-10-25 | Outpatient (REF) | payer MEDICARE, SELFPAY ==
[2022-10-25 08:46] LABS: Absolute Lymphocyte Count 1.65 X10^3/uL (0.83-4.51); Absolute Neutrophil Count 2.6 X10^3/uL (2.0-7.7); Basophil# 0.01 X10^3/uL; Basophil% 0.2 % (0-1); Eosinophil# 0.01 X10^3/uL; Eosinophils% 0.2 % (0-5); Hematocrit 24.4 % (40-54); Hemoglobin 7.4 g/dL (13.0-16.5); Lymphocyte # 1.65 X10^3/ul (0.83-4.51); Lymphocyte % 35.2 % (19-41); Mean Corp Hgb Conc 30.3 g/dL (32-36); Mean Corpuscular Hgb 31.2 pg (27.0-32.0); Mean Platelet Vol. 11.1 fl (6.2-12.0); Monocyte# 0.26 X10^3/uL; Monocyte% 5.5 % (0-10); NRBC Flagged by Analyzer 3.2 % (0-5); Neutrophil # 2.55 X10^3/uL (2.7-7.7); Neutrophil % 54.4 % (47-70); POSITIVE COUNT YES; POSITIVE MORPHOLOGY YES; Platelet Count 80 K/mm3 (150-450); RBC Distribution Width CV 20.4 % (11.6-14.6); Red Blood Count 2.37 M/mm3 (4.6-6.2); White Blood Count 4.7 K/mm3 (4.4-11.0)
[2022-10-25 08:50] LABS: Differential Indicated SCAN CRITERIA MET
[2022-10-25 09:34] LABS: Anisocytosis 1+; Platelet Estimate MOD DEC (ADEQ); Reactive Lymphocyte 1+
== END ==
LOC: OLS.WHLTCC 05:00
PROVIDERS: Visit Provider Internal Medicine
DX: D64.9 Anemia, unspecified (principal); G93.40 Encephalopathy, unspecified; J96.01 Acute respiratory failure with hypoxia; J90 Pleural effusion, not elsewhere classified; F03.90 Unspecified dementia, unspecified severity, without behavioral disturbance, psychotic disturbance, mood disturbance, and anxiety
CPT/HCPCS: 36415; 85025

== ENCOUNTER 2022-10-27 13:07 | Inpatient (IN) | payer MEDICARE, SELFPAY ==
[2022-10-27] VITALS (13 sets, daily range): BP systolic 132–139; BP diastolic 62–86; PULSE 61–98; RESP 12–40; TEMP 36.4–36.7; O2SAT 87–99; BMI 29.0; BMI 28.6
--- NOTE | 2022-10-27 13:41 | RAD_ITS ---
STUDY: X-RAY CHEST REASON FOR EXAM: Male, 87 years old. Dyspnea TECHNIQUE: Single AP portable view of the chest. COMPARISON: Comparison is made with prior study dated October 15, 2022. FINDINGS: EKG electrodes are seen. Stable elevation of the left hemidiaphragm with left basilar atelectasis and/or infiltrate. Blunting of the left costophrenic angle. There is blunting of the right cusp and angle. Minimal right basilar atelectasis. Normal size heart. Normal mediastinum and jc. Normal visualized pulmonary arteries. There is atherosclerotic calcification of the aortic arch with tortuosity. There is a levoscoliosis of the thoracic spine. Normal visualized ribs, clavicles, and shoulders. There is no demonstrated abnormality of the visualized soft tissue structures of the upper abdomen. RAD/Chest 1 View (Portable) IMPRESSION: Essentially stable examination with elevation of the left hemidiaphragm with stable pleural parenchymal changes at the left lung base. Blunting of the right costophrenic angle with mild right basilar atelectasis. Electronically Signed: Ruiz Zapata MD at 14:59 EDT ,
--- NOTE | 2022-10-27 13:41 | EKG12_ITS ---
Test Reason : SOB Blood Pressure : / mmHG Vent. Rate : 074 BPM Atrial Rate : 000 BPM P-R Int : 000 ms QRS Dur : 078 ms QT Int : 378 ms P-R-T Axes : 000 023 055 degrees QTc Int : 419 ms Atrial fibrillation Low voltage QRS Abnormal ECG Confirmed by MAHI MARTIN, SUDEEP ([id number]), videotape editor ZOE WAHL ([id number]) on 10/28/2022 1:28:40 PM Referred By: Confirmed By:SUDEEP CHAMPAGNE MD
--- NOTE | 2022-10-27 13:43 | EX.ED.DYSGE1 ---
HPI History of Present Illness Chief Complaint: Shortness of Breath Informant: patient, EMS and SNF Narrative Narrative: Patient is an 87-year-old male with history of AML, recent hospitalization for anemia associated with GI bleed (long-term use of Eliquis and had gastric ulcer/angiodysplastic lesions), atrial fibrillation, prostate cancer and on 2 L of nasal cannula at baseline presenting presenting with worsening anemia on outpatient lab work. Patient is a resident of [facility] and per report has anemia but sent for blood transfusion. In addition patient had increased work of breathing. Patient feels that his breathing is chronic. In addition patient has had increased swelling of his extremities and now his abdomen. Patient denies any recent black or blood in his stool. Per documentation patient was supposed to resume his Eliquis 6 days ago. Patient denies any chest pain. He only tells me right now that he feels that he has to urinate. He does comment me that he has a chronic elevated left hemidiaphragm. Has no other acute complaints at this time. Chart review shows that patient had a hemoglobin of 7.6 on 10/21/2022. [facility] Medical History Afib AML (acute myeloblastic leukemia) Anemia Congestive heart failure (CHF) Former smoker GI bleed Hypertension Prostate cancer Home Medications apixaban 5 mg tablet (Eliquis) 5 mg PO BID 10/15/22 [History Last Taken 10/27/22] ferrous sulfate 325 mg (65 mg iron) tablet (Feosol) 325 mg PO DAILY anemia 10/15/22 [History Last Taken 10/27/22] finasteride 5 mg tablet 5 mg PO DAILY prostate 10/15/22 [History Last Taken 10/26/22] furosemide 20 mg tablet 20 mg PO DAILY 10/15/22 [History Last Taken 10/27/22] metoprolol tartrate 25 mg tablet 25 mg PO BID 10/15/22 [History Last Taken 10/27/22] potassium chloride 10 mEq tablet,extended release (K-Tab) 10 meq PO BID 10/15/22 [History Last Taken 10/27/22] sennosides 8.6 mg tablet (Natural Senna Laxative) 17.2 mg PO QHS 10/15/22 [History Last Taken 10/26/22] tamsulosin 0.4 mg capsule (Flomax) 0.4 mg PO DAILY 10/15/22 [History Last Taken 10/27/22] terazosin 2 mg capsule 2 mg PO DAILY 10/15/22 [History Last Taken 10/27/22] food supplemt, lactose-reduced (Ensure Clear oral liquid) 120 ml PO 4X/DAY #0 mL 10/18/22 [Rx Last Taken Unknown] pantoprazole 40 mg tablet,delayed release 40 mg PO BIDCM #60 tabs 10/18/22 [Rx Last Taken 10/27/22] sucralfate 1 gram tablet 1 g PO 0700,1600 #0 tabs 10/18/22 [Rx Last Taken 10/27/22] allopurinol 300 mg tablet 150 mg PO DAILY GOUT 10/27/22 [History Last Taken 10/27/22] donepezil 5 mg tablet (Aricept) 5 mg PO QHS 10/27/22 [History Last Taken 10/26/22] levothyroxine 25 mcg tablet 25 mcg PO DAILY THYROID 10/27/22 [History Last Taken 10/27/22] Allergy/AdvReac Type Severity Reaction Status Date / Time No Known Allergies Allergy Verified 10/15/22 14:23 Social History Smoking Status: Former smoker ROS ROS ED Constitutional Constitutional ED: Denies chills or fever(s) Cardiovascular Cardiovascular: Reports orthopnea; Denies chest pain Respiratory/Chest Respiratory/Chest: Reports dyspnea, dyspnea on exertion and orthopnea; Denies cough Gastrointestinal Gastrointestinal: Reports other Details: Positive abdominal distention ; Denies abdominal pain, melena, nausea or vomiting Genitourinary Genitourinary ED: Denies dysuria or hematuria Musculoskeletal Musculoskeletal: Denies arthralgias or myalgias Integumentary Denies rash Neurologic Neurologic: Reports weakness Hematologic/Lymphatic Hematologic/Lymphatic: Reports easy bleeding and easy bruising EXAM Physical Exam Const Vital Signs: 10/27/22 13:09 10/27/22 13:07 10/27/22 13:07 Temperature 97.6 F L 97.8 F Temperature Source Oral Oral Pulse Rate 61 76 Respiratory Rate 40 H 38 H Respiratory Effort Short of Breath Respiratory Depth Normal Respiratory Pattern Normal Blood Pressure 134/75 H 134/75 H Blood Pressure Mean 94 94 Pulse Ox 95 90 Oxygen Delivery Method Nasal Cannula Nasal Cannula Nasal Cannula Oxygen Flow Rate (L/min) 2 2 2 Constitutional Narrative: Chronically ill-appearing General Appearance ED: LORETA MORGAN Reports moist mucous membranes Eyes PERRL General Eye ED: Yes scleral icterus Neck supple Neck Narrative: Positive JVD Chest Wall inspection of chest normal and palpation of chest normal Resp Resp Narrative: Increased respiratory effort with tachypnea and significant conversational dyspnea. Diminished breath sounds at the left base. Crackles at the right base. Auscultation: Negative for wheezes Cardio regular rate, regular rhythm and no murmurs GI GI Narrative: Nontender. No fluid wave appreciated. Distended with anasarca present/pitting edema up to the upper abdomen. Brown stool on rectal exam Extremity Extremity Narrative: Diffuse pitting edema present, no associated erythema. No deformity or focal tenderness appreciated. General Extremety ED: Yes edema General Extremity: edema Neuro oriented x3 Sensorium / Orientation: alert Motor Exam: general weakness Psych mental status grossly normal Skin General Skin Exam: jaundice MDM MDM MDM Narrative Medical decision making narrative: Patient is evaluated for outpatient anemia as well as increased respiratory effort. On arrival patient is quite tachypneic and has significant conversational dyspnea. He is 90% on 2 L which is what appears to be his baseline O2 requirements. Patient was just admitted for GI bleed. Rectal exam is brown stool and he does not appear to have an active bleed. He is also quite complex with a history of acute myelodysplastic syndrome. On exam patient has anasarca up to the level of the chest. ABG is obtained which shows a compensated respiratory acidosis however patient does have pure hypoxia. Patient is turned up to 5 L of oxygen with some improvement of his work of breathing. He otherwise remains hemodynamically stable despite his tachypnea in the ER. 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 Patient does have a stable thrombocytopenia. White blood cell count is slightly improved from 6 days ago. Urinalysis is concerning for UTI with positive nitrates, 5-10 white blood cells and 1+ bacteria with no epithelial cells seen. In addition while in the ER patient is complaining of a sense of urgency associated with urination. Culture sent and he started on IV Rocephin. Patient is given IV Lasix as clinically he appears quite fluid overloaded, his BNP is elevated at 460 and his chest x-ray does show blunting of the right costophrenic angles. He is chronically anticoagulated have a low suspicion for pulmonary emboli as a cause of his increased oxygen requirements and he does not have a fever, leukocytosis or change in cough/sputum production suggestive of pneumonia. Patient be admitted to medicine service for further diuresis. I suspect patient likely received too much fluid during his last hospitalization for GI bleed and this is why he is having so much swelling now. Also possible that he could have an acute flare of his AML which he is not medical candidate for treatment for. Lab Data Attestation: I reviewed the patient's lab results. Labs: Laboratory Results - last 24 hr 10/27/22 10/27/22 14:30 15:15 WBC 5.4 RBC 2.45 L Hgb 7.6 L Hct 24.8 L MCV 101.2 H MCH 31.0 MCHC 30.6 L RDW Std Deviation 74.3 H RDW Coeff of Jero 20.7 H Plt Count 85 L MPV 12.0 Neut % (Auto) Not Reportable Absolute Neuts (auto) 3.4 Absolute Lymphs (auto) 1.89 Total Counted 100 Neutrophils % (Manual) 61 Band Neutrophils % 1 Lymphocytes % (Manual) 35 Monocytes % (Manual) 1 Metamyelocytes % 2 H Nucleated RBCs/100 WBC 2 Diff Path Review May foll Atypical Lymphocytes 1+ Platelet Estimate MOD DEC Hypochromasia 1+ Macrocytosis 1+ PT 21.7 H INR 1.9 APTT 37.6 H Sodium 142 Potassium 4.4 Chloride 105 Carbon Dioxide 35.0 H Anion Gap 2 L BUN 26 H Creatinine 0.90 Estim Creat Clear Calc 57.00 Est GFR (MDRD) Af Amer 103 Est GFR (MDRD) Non-Af 85 BUN/Creatinine Ratio 29.0 H Glucose 99 Lactic Acid 1.2 Calcium 8.8 Total Bilirubin 1.00 Direct Bilirubin 0.49 H AST 16 ALT 21 Alkaline Phosphatase 178 H Troponin I High Sens 24 B-Natriuretic Peptide 460.4 H Total Protein 6.5 Albumin 3.3 Globulin 3.2 Lipase 22 Urine Color Yellow Urine Clarity Clear Urine pH 6.0 Ur Specific [place] 1.015 Urine Protein 30 H Urine Glucose (UA) Normal Urine Ketones Negative Urine Occult Blood 50 H Urine Nitrite Positive H Urine Bilirubin Negative Urine Urobilinogen 1 H Ur Leukocyte Esterase 100 H Urine RBC 0 SEEN Urine WBC 5-10 SEEN Ur Squamous Epith Cells 0 SEEN Urine Bacteria 1+ Urine Mucus 0 SEEN ABG Data ABG results: ABG 10/27/22 14:27 Specimen Type ART Sample Site L Radial pH 7.41 Bicarbonate Actual 35.6 H Total CO2 37 Base Excess 11 H O2 Saturation 88 L ABG pCO2 56.5 H ABG pO2 56 L Test Positive O2 Delivery Device Cannula Liter Flow 2.0 Radiography Chest X-Ray - ED: 1 View, Read by ED Physician, Read by Radiologist and - (Stable elevation of the left hemidiaphragm, blunting the right costophrenic angle) Diagnostic Testing: Clinical Impression(s) from Imaging Studies Chest X-Ray 10/27/22 13:41 IMPRESSION: Essentially stable examination with elevation of the left hemidiaphragm with stable pleural parenchymal changes at the left lung base. Blunting of the right costophrenic angle with mild right basilar atelectasis. Electronically Signed: Ruiz Zapata MD at 14:59 EDT , Rhythm Strip Rhythm Strip: A-fib Rate: 74 Ectopy: None EKG Initial EKG: Attestation: I personally reviewed and interpreted this EKG as follows: Interpretation: Atrial Fibrillation Comments: Atrial fibrillation at a rate of 74 bpm Normal axis Normal ST segments Low voltage QRS No significant change compared to prior EKG Prior: Unchanged Discharge Plan Triage Chief Complaint: Shortness of Breath ED Provider: Bindu Meyers Dx/Rx/DC Orders Clinical Impression: Acute and chronic respiratory failure with hypoxia, Anasarca, Acute UTI Prescriptions: No Action Eliquis 5 mg tablet 5 mg PO BID Hold Instructions: Resume on 10/21/22. ferrous sulfate [Feosol] 325 mg (65 mg iron) tablet 325 mg PO DAILY finasteride 5 mg tablet 5 mg PO DAILY Rx Instructions: QHS furosemide 20 mg tablet 20 mg PO DAILY metoprolol tartrate 25 mg tablet 25 mg PO BID potassium chloride [K-Tab] 10 mEq tablet extended release 10 meq PO BID sennosides [Natural Senna Laxative] 8.6 mg tablet 17.2 mg PO QHS tamsulosin [Flomax] 0.4 mg capsule 0.4 mg PO DAILY terazosin 2 mg capsule 2 mg PO DAILY Ensure Clear Liquid 120 ml PO 4X/DAY Qty: 0 0RF sucralfate 1 gram Tablet 1 g PO 0700,1600 Qty: 0 0RF pantoprazole 40 mg tablet,delayed release (DR/EC) 40 mg PO BIDCM Qty: 60 0RF allopurinol 300 mg tablet 150 mg PO DAILY levothyroxine 25 mcg tablet 25 mcg PO DAILY donepezil [Aricept] 5 mg tablet 5 mg PO QHS Primary Care Provider: Care Physician,No Primary Referrals: Care Physician,No Primary [Primary Care Provider] - Disposition Disposition: Acute Care Hospital [facility]
[2022-10-27 14:31] LABS: Allen Test Positive; Base Excess 11 mmol/L (-2 to +2); Bicarbonate 35.6 mmol/L (22-26); Blood Gas Specimen Type ART; O2 Delivery Device Cannula; PO2 56 mmHG (75-100); SITE L Radial; SO2 88 % (95-99); Total Carbon Dioxide 37 mmol/L; pCO2 56.5 mmHg (35-45); pH 7.41 (7.35-7.45)
[2022-10-27 14:47] LABS: Hematocrit 24.8 % (40-54); Hemoglobin 7.6 g/dL (13.0-16.5); Mean Corp Hgb Conc 30.6 g/dL (32-36); Mean Corpuscular Volume 101.2 fL (80-94); POSITIVE COUNT YES; POSITIVE MORPHOLOGY YES; Platelet Count 85 K/mm3 (150-450); RBC Distribution Width CV 20.7 % (11.6-14.6); RBC Distribution Width SD 74.3 fl (35.1-43.9); Red Blood Count 2.45 M/mm3 (4.6-6.2); White Blood Count 5.4 K/mm3 (4.4-11.0)
[2022-10-27 14:48] LABS: Differential Indicated MANUAL DIFF
[2022-10-27 14:52] LABS: International Normalized Ratio 1.9; Prothrombin Time (Protime)PT. 21.7 SECONDS (11.7-14.9)
[2022-10-27 14:54] LABS: Partial Thromboplast Time 37.6 Seconds (24.1-36.2)
[2022-10-27 15:15] LABS: AST(SGOT) 16 U/L (15-37); Alanine Aminotransfer ALT/SGPT 21 U/L (16-61); Albumin, Serum 3.3 g/dL (3.2-5.0); Alkaline Phosphatase 178 U/L (45-117); Anion Gap 2 (5-15); BUN 26 mg/dL (7-18); Bilirubin, Direct 0.49 mg/dL (0.00-0.30); Calcium,Total 8.8 mg/dL (8.5-10.1); Chloride 105 mmol/L (98-107); EST Glomerular Filtration Rate 85 mL/min (>60); Est Glom Filt Rate - Afr Amer 103 mL/min (>60); Globulin 3.2 g/dL (2.2-4.2); Glucose 99 mg/dL (74-106); Lipase 22 U/L (13-75); Potassium 4.4 mmol/L (3.5-5.1); Protein, Total 6.5 g/dL (6.4-8.2); Sodium Level 142 mmol/L (136-145); Troponin-I HS 24 pg/mL (3.0-78.0)
[2022-10-27 15:16] LABS: BNP,B-Type NATRIURETIC PEPTIDE 460.4 pg/mL (0-100)
[2022-10-27 15:20] LABS: Lymphocyte 35 % (19-41); Metamyelocyte 2 % (0-1); Monocyte 1 % (0-10); Neutrophil-Band 1 % (0-5); Neutrophil-Segmented 61 % (47-70); Nucleated Red Bld Cells,Manual 2 % (0-5); Platelet Estimate MOD DEC (ADEQ); Total Cells Counted 100 (MANUAL DIFF)
[2022-10-27 15:21] LABS: Atypical Lymphocyte 1+ %; Hypochromasia 1+; Macrocytosis 1+
[2022-10-27 15:22] LABS: Absolute Neutrophil Count 3.4 X10^3/uL (2.0-7.7)
[2022-10-27 15:23] LABS: Absolute Lymphocyte Count 1.89 X10^3/uL (0.83-4.51)
[2022-10-27 15:27] LABS: Lactic Acid 1.2 mmol/L (0.4-1.9)
[2022-10-27] MEDS: Furosemide 40 MG/4 ML Vial IV ×2 (15:27→22:30)
[2022-10-27 15:33] LABS: Mucous, Urine 0 SEEN /hpf (<or=2+); Red Blood Cells-Urine 0 SEEN /hpf (0-5); Squamous Epithelial Cells - UA 0 SEEN /hpf (0-5)
[2022-10-27 15:39] LABS: Color, Urine Yellow (Yellow); Glucose, Dipstick Normal (Normal); Ketone-Dipstick Negative (Negative); Leukocyte Esterase-Dipstick 100 /ul (Negative); Nitrite-Dipstick Positive (Negative); Occult Blood-Urine 50 /ul (Negative); Protein-Dipstick 30 mg/dl (Negative); Specific Gravity, Urine 1.015 (1.002-1.030); Urine Bilirubin Dipstick Negative (Negative); Urine Clarity Clear (Clear); Urine Urobilinogen 1 mg/dl (Normal)
[2022-10-27 15:51] LABS: Bacteria 1+ /hpf (None Seen); White Blood Cells 5-10 SEEN /hpf (0-5)
--- NOTE | 2022-10-27 15:53 | US_ITS ---
STUDY: ABDOMINAL ULTRASOUND REASON FOR EXAM: Male, 87 years old. r/o cirrhosis, ascites. splenomgegaly. H/o AML TECHNIQUE: Transabdominal ultrasound was performed with real-time and static grullon scale imaging. TECHNICAL QUALITY: Adequate. COMPARISON: None. FINDINGS: Liver: The liver measures 18.5 cm. There is diffusely increased echogenicity of the liver. The bile ducts are within normal limits. There is hepatic color flow. The direction of portal flow is hepatopetal. There is no demonstrated mass lesion. Portal vein measurement: Gallbladder: Normal distended gallbladder. The gallbladder wall measures 4.2 mm. There is a negative sonographic Guerrero''s sign. There is no pericholecystic fluid. There are no gallstones. Common Bile Duct (C.B.D.): The common bile duct was not visualized. Pancreas: Not visualized due to bowel gas producing artifact. Spleen: Normal size of the spleen. The spleen measures 10.5 x 5.5 x 5.4 cm. Right Kidney: Normal size of the right kidney. The right kidney measures 10.7 x 4.4 x 5.4 cm. Normal renal cortex. The right cortex measures 0.2 cm. There are multiple cysts with the 2 largest measuring 3.9 x 3.6 x 3.3 cm and 4.2 x 4.3 x 4.1 cm. There is no right hydronephrosis. Left Kidney: Normal size of the left kidney. The left kidney measures 10.8 x 4.8 x 5.2 cm. Normal renal cortex. The left cortex measures 1.7 cm. There are multiple cysts the largest measuring 3.9 x 4.2 x 4 cm. There is no left hydronephrosis. Aorta: Not visualized but no definitive evidence for aortic aneurysm I.V.C.: The IVC is patent. There is moderate ascites. US/Abdomen Complete IMPRESSION: Findings consistent with nonspecific hepatocellular disease and ascites. Nonvisualization of pancreas due to bowel gas producing artifact. CT would be useful for further evaluation if indicated Electronically Signed: Raul Eckert MD at 17:11 EDT ,
--- NOTE | 2022-10-27 15:55 | PCM.HP.STD ---
[facility] - General General Date of Admission: 10/27/22 Date of Service: 10/27/22 Chief Complaint: Gradual progression of dyspnea for 1 year reports for the last 1 week. HPI Narrative JASVIR LEA, is a 87 M came to ED for acute worsening of chronic shortness of breath for 1 week. Patient has history of heart disease/heart failure, chronic A-fib, AML, chronic anemia and was being followed by travel rn or and oncologist in [place] before he moved in [place] about 2 to 3 weeks ago. Patient was brought by EMS to ED in respiratory distress condition, dyspnea at rest. Patient also has chronic anemia and was admitted about 10 days ago for GI bleed and was found to have angiodysplastic lesions that was taken care of at that time. Denies chest pain tightness or pressure. Patient has chronic left hemidiaphragm elevation. Patient also had left inguinal surgery laparoscopically in August 2022 in [place]. Patient has a history of AML and was given prognosis of months to maybe 1 year by his oncologist in [place]. Currently patient does not have insurance but he has appointment coming up with oncologist Dr. Vasquez in November EMS vitals shows blood pressure on lower side 105/88 heart rate 75 which is little bit improved in ED, BP 134/75. Patient is tachypneic RR 38 to 40/min, 90% on 2 L of oxygen Chest x-ray imaging, EKG lab work reviewed and discussed in assessment plan. Patient does not have significant family history related to present illness. [facility] Medical History Afib AML (acute myeloblastic leukemia) Anemia Congestive heart failure (CHF) Former smoker GI bleed Hypertension Prostate cancer Home Medications apixaban 5 mg tablet (Eliquis) 5 mg PO BID 10/15/22 [History Last Taken 10/27/22] ferrous sulfate 325 mg (65 mg iron) tablet (Feosol) 325 mg PO DAILY anemia 10/15/22 [History Last Taken 10/27/22] finasteride 5 mg tablet 5 mg PO DAILY prostate 10/15/22 [History Last Taken 10/26/22] furosemide 20 mg tablet 20 mg PO DAILY 10/15/22 [History Last Taken 10/27/22] metoprolol tartrate 25 mg tablet 25 mg PO BID 10/15/22 [History Last Taken 10/27/22] potassium chloride 10 mEq tablet,extended release (K-Tab) 10 meq PO BID 10/15/22 [History Last Taken 10/27/22] sennosides 8.6 mg tablet (Natural Senna Laxative) 17.2 mg PO QHS 10/15/22 [History Last Taken 10/26/22] tamsulosin 0.4 mg capsule (Flomax) 0.4 mg PO DAILY 10/15/22 [History Last Taken 10/27/22] terazosin 2 mg capsule 2 mg PO DAILY 10/15/22 [History Last Taken 10/27/22] food supplemt, lactose-reduced (Ensure Clear oral liquid) 120 ml PO 4X/DAY #0 mL 10/18/22 [Rx Last Taken Unknown] pantoprazole 40 mg tablet,delayed release 40 mg PO BIDCM #60 tabs 10/18/22 [Rx Last Taken 10/27/22] sucralfate 1 gram tablet 1 g PO 0700,1600 #0 tabs 10/18/22 [Rx Last Taken 10/27/22] allopurinol 300 mg tablet 150 mg PO DAILY GOUT 10/27/22 [History Last Taken 10/27/22] donepezil 5 mg tablet (Aricept) 5 mg PO QHS 10/27/22 [History Last Taken 10/26/22] levothyroxine 25 mcg tablet 25 mcg PO DAILY THYROID 10/27/22 [History Last Taken 10/27/22] Allergy/AdvReac Type Severity Reaction Status Date / Time No Known Allergies Allergy Verified 10/15/22 14:23 Social History Smoking Status: Former smoker ROS ROS Narrative Constitutional: Reports severe fatigue and weakness. No fever. HEENT: Reports systems reviewed and no addt'l complaints, except as documented Respiratory/Chest: Dyspnea at rest CVS: Denies chest pain pressure or tightness. History of heart failure and chronic A-fib. Denies history of coronary artery disease/[place] or cardiac stent. Gastrointestinal: Denies coffee ground emesis, hematemesis or vomiting after last admission Genitourinary: Denies burning urination or new urinary tract symptoms Musculoskeletal: Chronic arthritis. Generalized weakness. On wheeled walker. No acute injury Neurologic: Denies seizure-like symptoms. skin: No ulcer. No rash Endocrinology: Reports systems reviewed and no addt'l complaints, except as documented Hematologic/Lymphatic: AML history as described in HPI. Severe anemia. Reports systems reviewed and no addt'l complaints, except as documented Rest 14 ROS are negative except as mentioned in HPI Vital Signs Vital Signs Vital Signs: 10/27/22 13:09 10/27/22 13:07 10/27/22 13:07 Temperature 97.6 F L 97.8 F Temperature Source Oral Oral Pulse Rate 61 76 Respiratory Rate 40 H 38 H Respiratory Effort Short of Breath Respiratory Depth Normal Respiratory Pattern Normal Blood Pressure 134/75 H 134/75 H Blood Pressure Mean 94 94 Pulse Ox 95 90 Oxygen Delivery Method Nasal Cannula Nasal Cannula Nasal Cannula Oxygen Flow Rate (L/min) 2 2 2 Weight Weight: 190 lb 11.198 oz Body Mass Index (BMI) 29.0 Physical Exam Narrative General: Alert, Oriented x3, Cooperative HEENT: Atraumatic, PERRLA, EOMI, Normocephalic Oral: No Gingival or Mucosal Lesions/ Ulcerations Neck: Supple, No JVD, Negative Carotid Bruits Lungs: Dyspnea at rest. Severe tachypnea and hypoxia. Air entry diminished in left lower chest. No wheezing/crepitation Cardiovascular: irregular rate and rhythm, low heart sound. Systolic murmur over right second ICS and LLSB Abdomen: Bowel Sounds Present, Soft, nontender. Generalized edema of abdominal wall, possible ascites : No renal angle tenderness. No suprapubic tenderness. Extremities: Bilateral lower extremity pitting, 4+ edema, Capillary Refill Less than 3 Seconds Skin: No rashes, No breakdown Musculoskeletal: No Tenderness to Palpation of Joints or Extremities ROM restricted at knee and hip joints. Neurological: Cranial nerves II-XII grossly intact, DTR 2+/4 and Symmetrical Psych/Mental Status: Flat affect. Results Lab / Micro Data 10/27/22 14:30 10/27/22 14:30 Labs: Laboratory Results - last 24 hr 10/27/22 14:30: WBC 5.4, RBC 2.45 L, Hgb 7.6 L, Hct 24.8 L, MCV 101.2 H, MCH 31.0, MCHC 30.6 L, RDW Std Deviation 74.3 H, RDW Coeff of Jero 20.7 H, Plt Count 85 L, MPV 12.0, Neut % (Auto) Not Reportable, Absolute Neuts (auto) 3.4, Absolute Lymphs (auto) 1.89, Total Counted 100, Neutrophils % (Manual) 61, Band Neutrophils % 1, Lymphocytes % (Manual) 35, Monocytes % (Manual) 1, Metamyelocytes % 2 H, Nucleated RBCs/100 WBC 2, Diff Path Review May foll, Atypical Lymphocytes 1+, Platelet Estimate MOD DEC, Hypochromasia 1+, Macrocytosis 1+, PT 21.7 H, INR 1.9, APTT 37.6 H, Sodium 142, Potassium 4.4, Chloride 105, Carbon Dioxide 35.0 H, Anion Gap 2 L, BUN 26 H, Creatinine 0.90, Estim Creat Clear Calc 57.00, Est GFR (MDRD) Af Amer 103, Est GFR (MDRD) Non-Af 85, BUN/Creatinine Ratio 29.0 H, Glucose 99, Lactic Acid 1.2, Calcium 8.8, Total Bilirubin 1.00, Direct Bilirubin 0.49 H, AST 16, ALT 21, Alkaline Phosphatase 178 H, Troponin I High Sens 24, B-Natriuretic Peptide 460.4 H, Total Protein 6.5, Albumin 3.3, Globulin 3.2, Lipase 22 10/27/22 15:15: Urine Color Yellow, Urine Clarity Clear, Urine pH 6.0, Ur Specific [place] 1.015, Urine Protein 30 H, Urine Glucose (UA) Normal, Urine Ketones Negative, Urine Occult Blood 50 H, Urine Nitrite Positive H, Urine Bilirubin Negative, Urine Urobilinogen 1 H, Ur Leukocyte Esterase 100 H, Urine RBC 0 SEEN, Urine WBC 5-10 SEEN, Ur Squamous Epith Cells 0 SEEN, Urine Bacteria 1+, Urine Mucus 0 SEEN Micro: Microbiology 10/27/22 13:40 Stool Stool Occult Blood ([facility]) - Final ABG Data ABG results: ABG 10/27/22 14:27 Specimen Type ART Sample Site L Radial pH 7.41 Bicarbonate Actual 35.6 H Total CO2 37 Base Excess 11 H O2 Saturation 88 L ABG pCO2 56.5 H ABG pO2 56 L Test Positive O2 Delivery Device Cannula Liter Flow 2.0 Radiology Impression Chest X-Ray 10/27/22 13:41 IMPRESSION: Essentially stable examination with elevation of the left hemidiaphragm with stable pleural parenchymal changes at the left lung base. Blunting of the right costophrenic angle with mild right basilar atelectasis. Electronically Signed: Ruiz Zapata MD at 14:59 EDT , Assessment & Plan Assessment/Plan (1) Acute and chronic respiratory failure with hypercapnia: (2) Acute and chronic respiratory failure with hypoxia: PLAN: Plan This is a 87-year-old gentleman is being admitted for dyspnea at rest, severe anemia and generalized edema/anasarca. 1. Acute on chronic combined respiratory failure: Patient is being admitted to PCU. As per the patient has been on oxygen, 2 L for about 1 year in [place]. Currently patient requires 6 L. ABG reviewed. 7.4 on 2 L of oxygen. Bicarb 35 in BMP suggestive of chronic CO2 retainer. BiPAP stat ordered. 2. Acute on chronic heart failure, exact etiology, classification and type unclear seems nonischemic from history with valvular heart disease: Patient had old medical record in [place]. We will try to get medical record from [facility]. Lasix 40 mg IV twice daily first dose now. 2D echo ordered. Heart failure core measures including intake and output, fluid restriction less than 1500 mL, daily weight monitoring, kidney and electrolytes monitoring. 3. Chronic A-fib and valvular heart disease: Patient on Eliquis 5 mg twice daily supposed to resume 6 days ago. For now we will hold his Eliquis as hemoglobin is 7.6. 4. Severe anemia: Patient was last admitted about 10 days ago. At that time EGD shows nonsevere erosive esophagitis, 2 bleeding angiodysplastic lesion in the stomach treated with heater probe. Small hiatus hernia. Oozing gastric ulcer with visible vessel. No gross lesion in duodenum. Stool for occult blood negative. Monitor CBC daily. Type and crossmatch ordered in ED. If hemoglobin drops less than 7 g will need PRBC transfusion. 5. AML: As mentioned above, his oncologist in [place] gave him 7 months to about 1 year. At present patient seems not candidate for chemotherapy given his disability and Karnofsky low functional score. 6. Suspected cystitis: Patient complain of increased urgency and frequency: UA shows WBC 5-10 cells, RBC 0 LE 100, nitrite positive. Patient empirically started on IV ceftriaxone. Urine culture is ordered. Other comorbidities include chronic gout, prostate cancer: Patient on tamsulosin finasteride. Continue ferrous sulfate. Living will/advanced directive/end of life care: Patient does have living will or advanced directive. Patient's son is power of associate attorney for health. After discussion of benefits/risks procedures involved with full code, DNR CC arrest and DNR CC, the patient opted for DNRCC arrest with no intubation Patient doesn't want artificial life support including intubation, tube feed, ventilator and/chest compression, central venous catheter, vasopressor and DC shock if needed Total time spent in [id number] encounter in discussion of advanced directive 17 minutes. Microbiology Past 72 Hours 10/27/22 13:40 Stool Stool Occult Blood ([facility]) - Final Laboratory Results 10/27/22 14:27: Specimen Type ART, Sample Site L Radial, pH 7.41, Bicarbonate Actual 35.6 H, Total CO2 37, Base Excess 11 H, O2 Saturation 88 L, ABG pCO2 56.5 H, ABG pO2 56 L, Test Positive, O2 Delivery Device Cannula, Liter Flow 2.0 10/27/22 14:30: WBC 5.4, RBC 2.45 L, Hgb 7.6 L, Hct 24.8 L, MCV 101.2 H, MCH 31.0, MCHC 30.6 L, RDW Std Deviation 74.3 H, RDW Coeff of Jero 20.7 H, Plt Count 85 L, MPV 12.0, Neut % (Auto) Not Reportable, Absolute Neuts (auto) 3.4, Absolute Lymphs (auto) 1.89, Total Counted 100, Neutrophils % (Manual) 61, Band Neutrophils % 1, Lymphocytes % (Manual) 35, Monocytes % (Manual) 1, Metamyelocytes % 2 H, Nucleated RBCs/100 WBC 2, Diff Path Review May foll, Atypical Lymphocytes 1+, Platelet Estimate MOD DEC, Hypochromasia 1+, Macrocytosis 1+, PT 21.7 H, INR 1.9, APTT 37.6 H Sodium 142, Potassium 4.4, Chloride 105, Carbon Dioxide 35.0 H, Anion Gap 2 L, BUN 26 H, Creatinine 0.90, Estim Creat Clear Calc 57.00, Est GFR (MDRD) Af Amer 103, Est GFR (MDRD) Non-Af 85, BUN/Creatinine Ratio 29.0 H, Glucose 99, Lactic Acid 1.2, Calcium 8.8, Total Bilirubin 1.00, Direct Bilirubin 0.49 H, AST 16, ALT 21, Alkaline Phosphatase 178 H, Troponin I High Sens 24, B-Natriuretic Peptide 460.4 H, Total Protein 6.5, Albumin 3.3, Globulin 3.2, Lipase 22, Blood Type Pending, Antibody Screen Pending 10/27/22 15:15: Urine Color Yellow, Urine Clarity Clear, Urine pH 6.0, Ur Specific [place] 1.015, Urine Protein 30 H, Urine Glucose (UA) Normal, Urine Ketones Negative, Urine Occult Blood 50 H, Urine Nitrite Positive H, Urine Bilirubin Negative, Urine Urobilinogen 1 H, Ur Leukocyte Esterase 100 H, Urine RBC 0 SEEN, Urine WBC 5-10 SEEN, Ur Squamous Epith Cells 0 SEEN, Urine Bacteria 1+, Urine Mucus 0 SEEN 10/27/22 14:27: Specimen Type ART, Sample Site L Radial, pH 7.41, Bicarbonate Actual 35.6 H, Total CO2 37, Base Excess 11 H, O2 Saturation 88 L, ABG pCO2 56.5 H, ABG pO2 56 L, Test Positive, O2 Delivery Device Cannula, Liter Flow 2.0 Charges/Coding Visit Charges Inpatient E&M: 55938 Init Hosp L3 Procedures Hospitalists Procedures: 91160 Advncd Care Plan 30 Min
[2022-10-27 16:46] LABS: Magnesium 2.1 mg/dL (1.6-2.6); Phosphorus 3.5 mg/dL (2.5-4.9)
[2022-10-27] MEDS: Ceftriaxone 1 GM/50 ML BAG IV (16:53)
--- NOTE | 2022-10-27 18:26 | NURSING ---
pt arrived to unit w/ respirations @45-50 min, using accessary muscles, hallucinating-pt on 2l o2 via n/c and that was gradually increased to 3,4,5 then 10 liter w/ no improvement observed and little air movement heard anteriorly or posteriorly-pt then placed on non rebreather at 10l and pox quickly evan to 90% (from 80) and resp slowed to 40-CPS arrived in room w/ bi-pap that had been ordered by dr baird and they placed pt on bipap @ 30%-pt closed eyes and seemed restful but occassionally awakens, hallucinating, thinking he sees someone in hallway or girls in room that are not there at this time, pt resp are 25 and pt has eyes closed, bed exit is on
--- NOTE | 2022-10-27 19:22 | ECHOCS_ITS ---
Reason For Study: Dyspnea/SOB Procedure This was a 2D Doppler, Color Flow transthoracic echocardiogram. The study was technically difficult. Contrast injection was performed. Exam performed portable in patient room. Left Ventricle Normal LV size. Left ventricular systolic function is normal. The estimated ejection fraction is 60 %. No regional wall motion abnormalities noted. Right Ventricle Normal RV size. Normal systolic function. Atria The left atrium is mildly enlarged. The right atrium is moderately enlarged. Mitral Valve Normal mitral valve. Tricuspid Valve Normal tricuspid valve. Mild to moderate (1-2+) tricuspid valve insufficiency. Pulmonary artery systolic pressure is 45 mmHg. Aortic Valve Trisinus/trileaflet aortic valve. Mild focal aortic valve thickening. Peak aortic valve gradient 24 mmHg. Mean aortic valve gradient 11 mmHg. Mild aortic stenosis. Pulmonic Valve Normal pulmonic valve. Great Vessels Normal aortic root. Pericardium/Pleural No pericardial effusion. Medication Diluted definity 4ml given slow IV push to enhance endocardial definition. MMode/2D Measurements & Calculations LVIDd: 4.6 cm IVSd: 0.79 cm LVOT diam: 2.2 cm LVIDs: 3.2 cm LVPWd: 0.75 cm RVDd: 5.1 cm FS: 30.2 % LVOT area: 3.7 cm2 Ao root diam: 3.5 cm LVAd ap4: 23.7 cm2 LA A4 area: 23.8 cm2 LA dimension: 3.8 cm LVLd ap4: 6.9 cm EDV(MOD-sp4): 66.3 ml EDV(sp4-el): 68.8 ml RA A4 area: 26.3 cm2 Doppler Measurements & Calculations MV E max kimber: 133.7 cm/sec MV V2 max: 143.3 cm/sec Ao V2 max: 247.5 cm/sec MV max P.2 mmHg Ao max P.7 mmHg MV V2 mean: 60.0 cm/sec Ao V2 mean: 152.2 cm/sec MV mean P.1 mmHg Ao mean P.2 mmHg MV V2 VTI: 31.4 cm Ao V2 VTI: 56.8 cm MVA(VTI): 2.0 cm2 AV (velocity ratio): 0.29 FRANKLYN(I,D): 1.1 cm2 FRANKLYN(V,D): 1.1 cm2 LV V1 max: 75.9 cm/sec SV(LVOT): 61.6 ml PA V2 max: 89.8 cm/sec LV V1 max P.3 mmHg LV V1 mean P.0 mmHg LV V1 mean: 45.3 cm/sec LV V1 VTI: 16.7 cm TR max kimber: 315.4 cm/sec PI dec slope: 82.6 cm/sec2 TR max P.8 mmHg ECHO/Echo Complete W/ Contrast Interpretation Summary Normal LV size. Left ventricular systolic function is normal. The estimated ejection fraction is 60 %. The left atrium is mildly enlarged. The right atrium is moderately enlarged. Pulmonary artery systolic pressure is 45 mmHg. Ordering Physician: Andrew Cadena Performed By: Silver Montero RCS
[2022-10-27] MEDS: Donepezil HCl 5 MG Tablet PO (22:31)
[2022-10-27] MEDS: Pantoprazole Sodium 40 MG Tablet PO (22:31)
[2022-10-27] MEDS: Atorvastatin Calcium 40 MG Tablet PO (22:32)
[2022-10-27] MEDS: Finasteride 5 MG Tablet PO (22:32)
[2022-10-27] MEDS: Isosorbide DN 10 MG Tablet 5 MG PO (22:32)
[2022-10-27] MEDS: Metoprolol Tartrate 25 MG Tablet PO (22:38)
[2022-10-28] VITALS (15 sets, daily range): BP systolic 103–129; BP diastolic 48–77; PULSE 63–76; RESP 12–22; TEMP 36.2–36.8; O2SAT 91–100
--- NOTE | 2022-10-28 00:37 | CPS ---
Pt ripped off bipap mask . Pt is confused and trying to climb out of bed. Nasal o2 back on 3L
[2022-10-28 06:50] LABS: Hematocrit 22.8 % (40-54); Hemoglobin 6.9 g/dL (13.0-16.5); Mean Corp Hgb Conc 30.3 g/dL (32-36); Mean Corpuscular Hgb 30.8 pg (27.0-32.0); Mean Corpuscular Volume 101.8 fL (80-94); Mean Platelet Vol. 12.1 fl (6.2-12.0); POSITIVE COUNT YES; POSITIVE MORPHOLOGY YES; Platelet Count 74 K/mm3 (150-450); RBC Distribution Width CV 20.6 % (11.6-14.6); RBC Distribution Width SD 76.5 fl (35.1-43.9); Red Blood Count 2.24 M/mm3 (4.6-6.2); White Blood Count 4.6 K/mm3 (4.4-11.0)
[2022-10-28] MEDS: Levothyroxine 25 MCG TABLET PO (06:50)
[2022-10-28] MEDS: Isosorbide DN 10 MG Tablet 5 MG PO ×3 (06:50→21:16)
[2022-10-28 06:51] LABS: Differential Indicated MANUAL DIFF
[2022-10-28] MEDS: Sucralfate 1 GM Tablet PO ×2 (07:07→17:16)
[2022-10-28 07:11] LABS: Eosinophil 1 % (0-5); Lymphocyte 42 % (19-41); Metamyelocyte 1 % (0-1); Neutrophil-Segmented 56 % (47-70); Total Cells Counted 100 (MANUAL DIFF)
[2022-10-28 07:12] LABS: Absolute Neutrophil Count 2.6 X10^3/uL (2.0-7.7); Anisocytosis 2+; Hypochromasia 1+; Platelet Estimate MOD DEC (ADEQ)
[2022-10-28 07:13] LABS: Absolute Lymphocyte Count 1.92 X10^3/uL (0.83-4.51)
[2022-10-28 07:25] LABS: ALB/GLOB Ratio 1.1 RATIO (0.9-2.4); AST(SGOT) 14 U/L (15-37); Alanine Aminotransfer ALT/SGPT 18 U/L (16-61); Alkaline Phosphatase 147 U/L (45-117); Anion Gap 1 (5-15); BUN 25 mg/dL (7-18); BUN/Creat Ratio 29.2 RATIO (10-20); Calcium,Total 8.4 mg/dL (8.5-10.1); Chloride 106 mmol/L (98-107); Cholesterol 119 mg/dL (200); Creatinine, Serum 0.86 mg/dL (0.70-1.30); EST Glomerular Filtration Rate 90 mL/min (>60); Est Glom Filt Rate - Afr Amer 109 mL/min (>60); Estimated Creatinine Clearance 57.65 ml/min; Globulin 2.8 g/dL (2.2-4.2); Glucose 95 mg/dL (74-106); High Density Lipoprotein 63 mg/dL; Potassium 3.5 mmol/L (3.5-5.1); Protein, Total 5.8 g/dL (6.4-8.2); Sodium Level 143 mmol/L (136-145); T4 Free Direct 0.86 ng/dL (0.76-1.46); Thyroid Stim Hormone (TSH) 8.71 uIU/mL (0.358-3.74); Triglycerides 58 mg/dL; Very Low Density Lipoprotein 12 mg/dL (5-40)
--- NOTE | 2022-10-28 08:33 | RAD_ITS ---
STUDY: X-RAY CHEST REASON FOR EXAM: Male, 87 years old. Dysnea TECHNIQUE: AP and lateral views of the chest. COMPARISON: Comparison is made with prior study October 27, 2002. FINDINGS: EKG electrodes are seen. Stable elevation of the left hemidiaphragm. Inspiratory study, there has been an increase in the left pleural effusion with left basilar atelectasis. Normal size heart. Normal mediastinum and jc. Normal visualized pulmonary arteries. There is atherosclerotic calcification of the aortic arch with tortuosity. There are diffuse degenerative changes of the visualized thoracic spine. There is degenerative osteoarthritis of the bilateral shoulders. There is no demonstrated abnormality of the visualized soft tissue structures of the upper abdomen. RAD/Chest PA and Lateral IMPRESSION: Elevation of left hemidiaphragm with increasing small left pleural effusion and left basilar atelectasis. Electronically Signed: Ruiz Zapata MD at 13:51 EDT ,
--- NOTE | 2022-10-28 08:52 | PN.HOSP_ITS ---
Reason for Visit Reason for Visit: Diagnoses Acute and chronic respiratory failure with hypoxia (10/27/22) Acute and chronic respiratory failure with hypercapnia (10/27/22) Objective Data Objective Data Vital Signs: Vital Signs Temp Pulse Resp BP Pulse Ox O2 Del Method O2 Flow Rate 97.8 F 65 12 126/76 H 91 Nasal Cannula 3 10/28/22 06:45 10/28/22 06:45 10/28/22 06:45 10/28/22 06:45 10/28/22 08:05 10/28/22 08:05 10/28/22 08:05 FiO2 25 10/28/22 01:07 Oxygen Flow Rate (L/min) 3 Oxygen Delivery Method Nasal Cannula Weight: 182 lb 15.739 oz Body Mass Index (BMI) 28.6 Intake & Output: Intake and Output for Last 24 Hours 10/26/22 10/27/22 10/28/22 23:59 23:59 23:59 Intake Total 320 / 320 Output Total 1010 / 1010 Balance 320 / -480 -1010 / -1010 Lab / Micro Data 10/28/22 06:19 10/28/22 06:19 Labs: Laboratory Results - last 24 hr 10/27/22 14:30: WBC 5.4, RBC 2.45 L, Hgb 7.6 L, Hct 24.8 L, MCV 101.2 H, MCH 31.0, MCHC 30.6 L, RDW Std Deviation 74.3 H, RDW Coeff of Jero 20.7 H, Plt Count 85 L, MPV 12.0, Neut % (Auto) Not Reportable, Absolute Neuts (auto) 3.4, Absolute Lymphs (auto) 1.89, Total Counted 100, Neutrophils % (Manual) 61, Band Neutrophils % 1, Lymphocytes % (Manual) 35, Monocytes % (Manual) 1, Metamyelocytes % 2 H, Nucleated RBCs/100 WBC 2, Diff Path Review May foll, Atypical Lymphocytes 1+, Platelet Estimate MOD DEC, Hypochromasia 1+, Macrocytosis 1+, PT 21.7 H, INR 1.9, APTT 37.6 H, Sodium 142, Potassium 4.4, Chloride 105, Carbon Dioxide 35.0 H, Anion Gap 2 L, BUN 26 H, Creatinine 0.90, Estim Creat Clear Calc 57.00, Est GFR (MDRD) Af Amer 103, Est GFR (MDRD) Non-Af 85, BUN/Creatinine Ratio 29.0 H, Glucose 99, Lactic Acid 1.2, Calcium 8.8, Phosphorus 3.5, Magnesium 2.1, Total Bilirubin 1.00, Direct Bilirubin 0.49 H, AST 16, ALT 21, Alkaline Phosphatase 178 H, Troponin I High Sens 24, B- Natriuretic Peptide 460.4 H, Total Protein 6.5, Albumin 3.3, Globulin 3.2, Lipase 22, Blood Type A POSITIVE, Antibody Screen NEGATIVE 10/27/22 15:15: Urine Color Yellow, Urine Clarity Clear, Urine pH 6.0, Ur Specific [place] 1.015, Urine Protein 30 H, Urine Glucose (UA) Normal, Urine Ketones Negative, Urine Occult Blood 50 H, Urine Nitrite Positive H, Urine Bilirubin Negative, Urine Urobilinogen 1 H, Ur Leukocyte Esterase 100 H, Urine RBC 0 SEEN, Urine WBC 5-10 SEEN, Ur Squamous Epith Cells 0 SEEN, Urine Bacteria 1+, Urine Mucus 0 SEEN 10/28/22 06:19: WBC 4.6, RBC 2.24 L, Hgb 6.9 L, Hct 22.8 L, MCV 101.8 H, MCH 30.8, MCHC 30.3 L, RDW Std Deviation 76.5 H, RDW Coeff of Jero 20.6 H, Plt Count 74 L, MPV 12.1 H, Neut % (Auto) Not Reportable, Absolute Neuts (auto) 2.6, Absolute Lymphs (auto) 1.92, Total Counted 100, Neutrophils % (Manual) 56, Lymphocytes % (Manual) 42 H, Eosinophils % (Manual) 1, Metamyelocytes % 1, Diff Path Review May foll, Platelet Estimate MOD DEC, Hypochromasia 1+, Anisocytosis 2+ Sodium 143, Potassium 3.5, Chloride 106, Carbon Dioxide 36.0 H, Anion Gap 1 L, BUN 25 H, Creatinine 0.86, Estim Creat Clear Calc 57.65, Est GFR (MDRD) Af Amer 109, Est GFR (MDRD) Non-Af 90, BUN/Creatinine Ratio 29.2 H, Glucose 95, Calcium 8.4 L, Total Bilirubin 0.90, AST 14 L, ALT 18, Alkaline Phosphatase 147 H, Total Protein 5.8 L, Albumin 3.0 L, Globulin 2.8, Albumin/Globulin Ratio 1.1, Triglycerides 58, Cholesterol 119, LDL Cholesterol 44, VLDL Cholesterol 12, HDL Cholesterol 63, TSH 8.71 H, Free T4 0.86 Micro: Microbiology 10/27/22 13:40 Stool Stool Occult Blood (MAGDALENA) - Final ABG Data ABG results: ABG 10/27/22 14:27 Specimen Type ART Sample Site L Radial pH 7.41 Bicarbonate Actual 35.6 H Total CO2 37 Base Excess 11 H O2 Saturation 88 L ABG pCO2 56.5 H ABG pO2 56 L Test Positive O2 Delivery Device Cannula Liter Flow 2.0 Radiography Diagnostic Testing: Radiology Impression Chest X-Ray 10/27/22 13:41 IMPRESSION: Essentially stable examination with elevation of the left hemidiaphragm with stable pleural parenchymal changes at the left lung base. Blunting of the right costophrenic angle with mild right basilar atelectasis. Electronically Signed: Ruiz Zapata MD at 14:59 EDT , Abdomen Ultrasound 10/27/22 15:53 IMPRESSION: Findings consistent with nonspecific hepatocellular disease and ascites. Nonvisualization of pancreas due to bowel gas producing artifact. CT would be useful for further evaluation if indicated Electronically Signed: Raul Eckert MD at 17:11 EDT , Rhythm Strip Rhythm Strip: A-fib Rate: 74 Ectopy: None Physical Exam Narrative Seen and examined. I talked to the patient and his near the bedside. Patient's stated that his son is neurologist in [place] and wanted erythropoietin for his anemia. When I asked whether he had breath reported in the past, she said probably not. Overall improvement in patient's shortness of breath and leg swelling. Physical exam: General: Alert, Oriented x3, Cooperative HEENT: Atraumatic, PERRLA, EOMI, Normocephalic Oral: Oral mucosa dry. No Gingival or Mucosal Lesions/ Ulcerations Neck: Supple, No JVD, Negative Carotid Bruits Lungs: Dyspnea on mild exertion. On 2 L of oxygen. Air entry diminished in left lower chest. Left hemidiaphragm elevation no wheezing/crepitation Cardiovascular: irregular rate and rhythm, heart rate controlled systolic murmur over right second ICS and LLSB Abdomen: Bowel Sounds Present, Soft, nontender. Moderate ascites but not causing respiratory distress : No renal angle tenderness. No suprapubic tenderness. Extremities: Bilateral lower extremity pitting, 3+ edema, Capillary Refill Less than 3 Seconds Skin: No rashes, No breakdown Musculoskeletal: No Tenderness to Palpation of Joints or Extremities ROM restricted at knee and hip joints. Neurological: Cranial nerves II-XII grossly intact, DTR 2+/4 and Symmetrical Psych/Mental Status: Flat affect. Assessment & Plan Assessment/Plan (1) Acute and chronic respiratory failure with hypercapnia: (2) Acute and chronic respiratory failure with hypoxia: PLAN: Plan This is a 87-year-old gentleman is being admitted for dyspnea at rest, severe anemia and generalized edema/anasarca. 1. Acute on chronic combined respiratory failure: Patient is being admitted to PCU. As per the patient has been on oxygen, 2 L for about 1 year in [place]. Currently patient requires 6 L. ABG reviewed. 7.4 on 2 L of oxygen. Bicarb 35 in BMP suggestive of chronic CO2 retainer. BiPAP stat or dered. 10/28: Patient on 2 L of oxygen. Patient was on BiPAP last night and improvement in the respiratory failure. 2. Acute on chronic heart failure, exact etiology, classification and type unclear seems nonischemic from history with valvular heart disease: Patient had old medical record in [place]. We will try to get medical record from [facility]. Lasix 40 mg IV twice daily first dose now. 2D echo ordered. Heart failure core measures including intake and output, fluid restriction less than 1500 mL, daily weight monitoring, kidney and electrolytes monitoring. 10/28: 2D echo done. Repeat chest x-ray shows similar finding with increasing small left pleural effusion and left basilar atelectasis and elevation of left hemidiaphragm. Continue IV Lasix. Mild hypokalemia potassium replaced. Spironolactone dose increased to 25 mg daily. 3. Chronic A-fib and valvular heart disease: Patient on Eliquis 5 mg twice daily supposed to resume 6 days ago. For now we will hold his Eliquis as hemoglobin is 7.6. 10/28 heart rate is controlled. 4. Severe anemia: Patient was last admitted about 10 days ago. At that time EGD shows nonsevere erosive esophagitis, 2 bleeding angiodysplastic lesion in the stomach treated with heater probe. Small hiatus hernia. Oozing gastric ulcer with visible vessel. No gross lesion in duodenum. Stool for occult blood negative. Monitor CBC daily. Type and crossmatch ordered in ED. If hemoglobin drops less than 7 g will need PRBC transfusion. 10/28: Hemoglobin decreased to 6.9. 1 unit PRBC ordered. MCV 101. Ferritin 917, TIBC low. Serum iron pending. Reticulocyte count 1.0%, immature reticulocyte fraction 18% high. 5. AML: As mentioned above, his oncologist in [place] gave him 7 months to about 1 year. At present patient seems not candidate for chemotherapy given his disability and Karnofsky low functional score. 10/[address] Vasquez and Dr. Hernandez and Dr. Hernandez will see. Serum iron is ordered. Abdominal ultrasound shows moderate ascites, nonspecific hepatocellular disease with a diffuse increased echogenicity. Spleen normal size 10.5 cm. 6. Suspected cystitis: Patient complain of increased urgency and frequency: UA shows WBC 5-10 cells, RBC 0 LE 100, nitrite positive. Patient empirically started on IV ceftriaxone. Urine culture is ordered. 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 Continue ceftriaxone. Other comorbidities include chronic gout, prostate cancer: Patient on tamsulosin finasteride. Continue ferrous sulfate. Hypothyroidism: TSH elevated. Levothyroxine dose increased to 50 mcg daily. Living will/advanced directive/end of life care: Patient does have living will or advanced directive. Patient's son is power of bankruptcy attorney for health. After discussion of benefits/risks procedures involved with full code, DNR CC arrest and DNR CC, the patient opted for DNRCC arrest with no intubation Patient doesn't want artificial life support including intubation, tube feed, ventilator and/chest compression, central venous catheter, vasopressor and DC shock if needed Total time spent in [id number] encounter in discussion of advanced directive 17 minutes. Clinical Impression(s) from Imaging Studies Abdomen Ultrasound 10/27/22 15:53 IMPRESSION: Findings consistent with nonspecific hepatocellular disease and ascites. Nonvisualization of pancreas due to bowel gas producing artifact. CT would be useful for further evaluation if indicated Chest X-Ray 10/28/22 08:33 IMPRESSION: Elevation of left hemidiaphragm with increasing small left pleural effusion and left basilar atelectasis. Electronically Signed: Ruiz Zapata MD at 13:51 EDT , Charges/Coding Addendum Addendum: Total time of the visit including total time spent in counseling or coordination of care, (more than 50% of the total time, spent in obtaining medical information from nurses and other ancillary care providers,explaining to the patient about labs, imaging, diagnosis and management of active complex medical conditions), discussion with the oncologist, clinical update and review of labs and imaging given to patient's ,, obtain medical records is 50 minutes Visit Charges Inpatient E&M: 85513 Subs Hosp L3
[2022-10-28] MEDS: Tamsulosin HCl 0.4 MG Capsule PO (08:59)
[2022-10-28] MEDS: Pantoprazole Sodium 40 MG Tablet PO ×2 (08:59→17:16)
[2022-10-28] MEDS: Doxazosin 1 MG Tablet 2 MG PO (08:59)
[2022-10-28] MEDS: Allopurinol 100 MG Tablet 150 MG PO (08:59)
[2022-10-28] MEDS: Ferrous Sulfate 325 MG Tablet PO (08:59)
[2022-10-28] MEDS: Metoprolol Tartrate 25 MG Tablet PO (09:00)
[2022-10-28] MEDS: Spironolactone 25 MG Tablet 12.5 MG PO (09:04)
[2022-10-28 11:01] LABS: Immature Platelet Fraction 13.1 % (1.0-7.9); Platelet Count 68 K/mm3 (150-450); RET-HE 24.5 pg (30-35); Reticulocyte Count 1.09 % (0.5-1.5)
--- NOTE | 2022-10-28 11:39 | CASEMGMT ---
SW was informed family was asking about Hospice for patient. SW met with patient's sister, Alley. Introduced self and role at [facility]. SW asked about Hospice. Alley said she is not sure, but she would like patient to return to [facility] when ready and they can discuss it when there. PANCHO let Alley know that is fine and SW will continue to follow for return to [facility]. Dimple Awad [employer]ON[employer]
[2022-10-28 11:45] LABS: Vitamin B12 1440 pg/mL (211-911)
[2022-10-28] MEDS: Ceftriaxone 1 GM/50 ML BAG IV (11:50)
[2022-10-28] MEDS: Ensure Clear 120 ML Liquid PO ×2 (11:50→14:53)
[2022-10-28] MEDS: Furosemide 40 MG/4 ML Vial IV ×2 (11:51→21:16)
[2022-10-28 11:53] LABS: Ferritin 917 ng/mL (26-388); Iron Binding Capacity,Total 248 ug/dL (250-450)
[2022-10-28] MEDS: Potassium Chloride Oral Tablet 20 MEQ 40 MEQ PO (12:33)
[2022-10-28 13:06] LABS: Pathologist Review Reviewed
--- NOTE | 2022-10-28 17:15 | ONC.CONSULT ---
Assessment & Plan Assessment/Plan (1) History of acute leukemia: Status: Acute Code(s): Z85.6 - Personal history of leukemia Plan: Pt has multiple medical problems including ?AML, records are not available, Pt has a poor functional status with Probable Dementia. He is not a candidate for further evaluation. Prognosis is poor, Hospice care is appropriate. Recommend Hospice care. HPI Consult Data Date of Service:: 10/28/22 PCP / Referring Provider: No Primary Care Phys Attending: Dr. Andrew Cadena MD Chief Complaint Chief Complaint: Asked to see Pt with history of AML History of Present Illness History of Present Illness: History from Pt. Poor historian. 87y.o.man with multiple medical problems, was diagnosed with AML in [place] about a year or so ago. He was not treated because of his poor functional status. He recently moved to [facility] and admitted to [facility] with Respiratory failure. Advanced Directives Power of [employer]: Yes Living Will: Yes [facility] Medical History Afib AML (acute myeloblastic leukemia) Anemia Congestive heart failure (CHF) Former smoker GI bleed Hypertension Prostate cancer Home Medications apixaban 5 mg tablet (Eliquis) 5 mg PO BID 10/15/22 [History Last Taken 10/27/22] ferrous sulfate 325 mg (65 mg iron) tablet (Feosol) 325 mg PO DAILY anemia 10/15/22 [History Last Taken 10/27/22] finasteride 5 mg tablet 5 mg PO DAILY prostate 10/15/22 [History Last Taken 10/26/22] furosemide 20 mg tablet 20 mg PO DAILY 10/15/22 [History Last Taken 10/27/22] metoprolol tartrate 25 mg tablet 25 mg PO BID 10/15/22 [History Last Taken 10/27/22] potassium chloride 10 mEq tablet,extended release (K-Tab) 10 meq PO BID 10/15/22 [History Last Taken 10/27/22] sennosides 8.6 mg tablet (Natural Senna Laxative) 17.2 mg PO QHS 10/15/22 [History Last Taken 10/26/22] tamsulosin 0.4 mg capsule (Flomax) 0.4 mg PO DAILY 10/15/22 [History Last Taken 10/27/22] terazosin 2 mg capsule 2 mg PO DAILY 10/15/22 [History Last Taken 10/27/22] food supplemt, lactose-reduced (Ensure Clear oral liquid) 120 ml PO 4X/DAY #0 mL 10/18/22 [Rx Last Taken Unknown] pantoprazole 40 mg tablet,delayed release 40 mg PO BIDCM #60 tabs 10/18/22 [Rx Last Taken 10/27/22] sucralfate 1 gram tablet 1 g PO 0700,1600 #0 tabs 10/18/22 [Rx Last Taken 10/27/22] allopurinol 300 mg tablet 150 mg PO DAILY GOUT 10/27/22 [History Last Taken 10/27/22] donepezil 5 mg tablet (Aricept) 5 mg PO QHS 10/27/22 [History Last Taken 10/26/22] levothyroxine 25 mcg tablet 25 mcg PO DAILY THYROID 10/27/22 [History Last Taken 10/27/22] Allergy/AdvReac Type Severity Reaction Status Date / Time No Known Allergies Allergy Verified 10/15/22 14:23 Social History Smoking Status: Former smoker ROS Constitutional Constitutional: Denies fever(s) Physical Exam Narrative Elderly man, lying in bed Const alert HEENT normocephalic Eyes conjunctivae normal Neck no lymphadenopathy Lymph Lymphatic: no lymphadenopathy noted Resp Resp Narrative: Diminished BS bilaterally Cardio S1 normal heart sound and S2 normal heart sound GI soft to palpation Extremity Extremity Narrative: + edema of upper extremities and low extremities Psych Psych Narrative: Confusion, Vital Signs Temperature 97.8 F 10/28/22 16:42 Temperature Source Temporal 10/28/22 16:42 Pulse Rate 76 10/28/22 16:42 Pulse Strength Normal (2+) 10/27/22 20:33 Respiratory Rate 22 H 10/28/22 16:42 Respiratory Effort Accessory Muscle Use 10/28/22 14:57 Respiratory Depth Normal 10/28/22 14:57 Respiratory Pattern Tachypnea 10/28/22 14:57 Blood Pressure 113/54 L 10/28/22 16:42 Blood Pressure Mean 73 10/28/22 16:42 Blood Pressure Source Monitor 10/28/22 16:42 Blood Pressure Position Semi-Fowlers 10/28/22 16:42 Blood Pressure Location Left Arm 10/28/22 16:42 Pulse Ox 100 10/28/22 16:42 Oxygen Delivery Method Nasal Cannula 10/28/22 16:42 Oxygen Flow Rate (L/min) 2 10/28/22 16:42 Fraction of Inspired Oxygen (FIO2) 25 10/28/22 01:07 Laboratory Results - last 24 hr 10/27/22 14:30: Diff Path Review Reviewed, Crossmatch See Detail 10/28/22 06:19: WBC 4.6, RBC 2.24 L, Hgb 6.9 L, Hct 22.8 L, MCV 101.8 H, MCH 30.8, MCHC 30.3 L, RDW Std Deviation 76.5 H, RDW Coeff of Jero 20.6 H, Plt Count 74 L, MPV 12.1 H, Neut % (Auto) Not Reportable, Absolute Neuts (auto) 2.6, Absolute Lymphs (auto) 1.92, Total Counted 100, Neutrophils % (Manual) 56, Lymphocytes % (Manual) 42 H, Eosinophils % (Manual) 1, Metamyelocytes % 1, Diff Path Review May foll, Platelet Estimate MOD DEC, Hypochromasia 1+, Anisocytosis 2+, Sodium 143, Potassium 3.5, Chloride 106, Carbon Dioxide 36.0 H, Anion Gap 1 L, BUN 25 H, Creatinine 0.86, Estim Creat Clear Calc 57.65, Est GFR (MDRD) Af Amer 109, Est GFR (MDRD) Non-Af 90, BUN/Creatinine Ratio 29.2 H, Glucose 95, Calcium 8.4 L, Total Bilirubin 0.90, AST 14 L, ALT 18, Alkaline Phosphatase 147 H, Total Protein 5.8 L, Albumin 3.0 L, Globulin 2.8, Albumin/Globulin Ratio 1.1, Triglycerides 58, Cholesterol 119, LDL Cholesterol 44, VLDL Cholesterol 12, HDL Cholesterol 63, TSH 8.71 H, Free T4 0.86 10/28/22 10:43: Immature Plt Fraction 13.1 H, Retic Count 1.09, Immature Retic Fraction 18.20 H, Retic Hgb Equivalent 24.5 L, Iron Cancelled, TIBC 248 L, Iron Saturation Cancelled, Ferritin 917 H, Vitamin B12 1440 H, Folate 14.60 Microbiology 10/27/22 15:15 Urine, Catheterized Urine Culture - Preliminary GNR lactose wrapper sheeter 10/27/22 13:40 Stool Stool Occult Blood (MAGDALENA) - Final Diagnostic Data Abdomen Ultrasound 10/27/22 15:53 IMPRESSION: Findings consistent with nonspecific hepatocellular disease and ascites. Nonvisualization of pancreas due to bowel gas producing artifact. CT would be useful for further evaluation if indicated Electronically Signed: Raul Eckert MD at 17:11 EDT , Echocardiogram 10/27/22 19:22 Interpretation Summary Normal LV size. Left ventricular systolic function is normal. The estimated ejection fraction is 60 %. The left atrium is mildly enlarged. The right atrium is moderately enlarged. Pulmonary artery systolic pressure is 45 mmHg. Ordering Physician: Andrew Cadena Performed By: Silver Montero RCS Chest X-Ray 10/28/22 08:33 IMPRESSION: Elevation of left hemidiaphragm with increasing small left pleural effusion and left basilar atelectasis. Electronically Signed: Ruiz Zapata MD at 13:51 EDT ,
[2022-10-28] MEDS: Donepezil HCl 5 MG Tablet PO (21:16)
[2022-10-28] MEDS: Finasteride 5 MG Tablet PO (21:17)
[2022-10-28] MEDS: Atorvastatin Calcium 40 MG Tablet PO (21:17)
[2022-10-28] MEDS: Acetaminophen 325 MG Tablet 650 MG PO (21:24)
[2022-10-29] VITALS (7 sets, daily range): BP systolic 112–119; BP diastolic 60–72; PULSE 73–97; RESP 14–18; TEMP 35.8–36.7; O2SAT 93–100; BMI 28.5; BMI 28.6
[2022-10-29] MEDS: Isosorbide DN 10 MG Tablet 5 MG PO ×3 (06:14→21:11)
[2022-10-29] MEDS: Levothyroxine 50 MCG Tablet PO (06:15)
[2022-10-29 06:29] LABS: Hematocrit 23.4 % (40-54); Hemoglobin 7.4 g/dL (13.0-16.5); Mean Corp Hgb Conc 31.6 g/dL (32-36); Mean Corpuscular Hgb 31.6 pg (27.0-32.0); Mean Platelet Vol. 12.3 fl (6.2-12.0); POSITIVE COUNT YES; POSITIVE MORPHOLOGY YES; Platelet Count 67 K/mm3 (150-450); RBC Distribution Width CV 20.6 % (11.6-14.6); Red Blood Count 2.34 M/mm3 (4.6-6.2); White Blood Count 4.6 K/mm3 (4.4-11.0)
[2022-10-29 07:00] LABS: Anion Gap 4 (5-15); BUN 24 mg/dL (7-18); BUN/Creat Ratio 29.8 RATIO (10-20); Calcium,Total 8.3 mg/dL (8.5-10.1); Chloride 103 mmol/L (98-107); Creatinine, Serum 0.81 mg/dL (0.70-1.30); EST Glomerular Filtration Rate 97 mL/min (>60); Est Glom Filt Rate - Afr Amer 117 mL/min (>60); Glucose 106 mg/dL (74-106); Potassium 3.5 mmol/L (3.5-5.1); Sodium Level 144 mmol/L (136-145)
[2022-10-29 08:47] LABS: Differential Indicated MANUAL DIFF
[2022-10-29 08:57] LABS: Neutrophil-Segmented 55 % (47-70); Total Cells Counted 100 (MANUAL DIFF)
[2022-10-29 08:58] LABS: Anisocytosis 2+; Lymphocyte 34 % (19-41); Macrocytosis 1+; Metamyelocyte 1 % (0-1); Microcytosis 1+; Monocyte 6 % (0-10); Myelocyte 4 % (0-0); Nucleated Red Bld Cells,Manual 2 % (0-5); Platelet Estimate MKD DEC (ADEQ)
[2022-10-29 08:59] LABS: Absolute Lymphocyte Count 1.56 X10^3/uL (0.83-4.51); Absolute Neutrophil Count 2.5 X10^3/uL (2.0-7.7)
[2022-10-29] MEDS: Pantoprazole Sodium 40 MG Tablet PO ×2 (08:59→17:51)
[2022-10-29] MEDS: Ferrous Sulfate 325 MG Tablet PO (08:59)
[2022-10-29] MEDS: Doxazosin 1 MG Tablet 2 MG PO (09:01)
[2022-10-29] MEDS: Tamsulosin HCl 0.4 MG Capsule PO (09:01)
[2022-10-29] MEDS: Spironolactone 25 MG Tablet PO (09:01)
--- NOTE | 2022-10-29 09:04 | CASEMGMT ---
Discharge Planning Clinical updates, tentative dc date and need for hospice consult sent to [facility]. Clara Krause, Discharge Planning Asst.
[2022-10-29] MEDS: Furosemide 40 MG/4 ML Vial IV ×2 (09:07→17:48)
[2022-10-29] MEDS: Ensure Clear 120 ML Liquid PO ×3 (09:09→17:51)
[2022-10-29] MEDS: Allopurinol 100 MG Tablet 150 MG PO (09:11)
[2022-10-29] MEDS: 0.9% Saline Lock 10 ML Syringe IV (09:16)
[2022-10-29] MEDS: Ceftriaxone 1 GM/50 ML BAG IV (09:19)
[2022-10-29 09:54] LABS: Pathologist Review Reviewed
--- NOTE | 2022-10-29 11:35 | PCM.PN.HOSP ---
Reason for Visit Reason for Visit: Diagnoses Acute and chronic respiratory failure with hypoxia (10/27/22) Acute and chronic respiratory failure with hypercapnia (10/27/22) Personal history of leukemia (10/27/22) Objective Data Objective Data Vital Signs: Vital Signs Temp Pulse Resp BP Pulse Ox O2 Del Method O2 Flow Rate 97.1 F L 97 18 114/69 100 Nasal Cannula 2 10/29/22 09:00 10/29/22 09:00 10/29/22 09:00 10/29/22 09:00 10/29/22 09:00 10/29/22 10:00 10/29/22 10:00 FiO2 25 10/28/22 01:07 Oxygen Flow Rate (L/min) 2 Oxygen Delivery Method Nasal Cannula Weight: 183 lb Body Mass Index (BMI) 28.6 Intake & Output: Intake and Output for Last 24 Hours 10/27/22 10/28/22 10/29/22 23:59 23:59 23:59 Intake Total 320 / 320 1610 / 1610 200 / 200 Output Total 1460 / 1460 600 / 600 Balance 320 / -480 150 / 150 -400 / -400 Lab / Micro Data 10/29/22 04:45 10/29/22 04:45 Labs: Laboratory Results - last 24 hr 10/27/22 14:30: Diff Path Review Reviewed, Crossmatch See Detail 10/28/22 06:19: Diff Path Review Reviewed 10/28/22 10:43: TIBC 248 L, Ferritin 917 H, Vitamin B12 1440 H, Folate 14.60, Miscellaneous Test 10/29/22 04:45: WBC 4.6, RBC 2.34 L, Hgb 7.4 L, Hct 23.4 L, MCV 100.0 H, MCH 31.6, MCHC 31.6 L, RDW Std Deviation 73.0 H, RDW Coeff of Jero 20.6 H, Plt Count 67 L, MPV 12.3 H, Immature Gran % (Auto) SOLDERER DIPPER, Neut % (Auto) SOLDERER DIPPER, Lymph % (Auto) SOLDERER DIPPER, [place] % (Auto) SOLDERER DIPPER, Eos % (Auto) SOLDERER DIPPER, Baso % (Auto) SOLDERER DIPPER, Absolute Neuts (auto) 2.5, Absolute Lymphs (auto) 1.56, Total Counted 100, Neutrophils % (Manual) 55, Lymphocytes % (Manual) 34, Monocytes % (Manual) 6, Metamyelocytes % 1, Myelocytes % 4 H, Nucleated RBC % SOLDERER DIPPER, Nucleated RBCs/100 WBC 2, Diff Path Review May foll, Platelet Estimate MKD DEC, Anisocytosis 2+, Microcytosis 1+, Macrocytosis 1+, Sodium 144, Potassium 3.5, Chloride 103, Carbon Dioxide 37.0 H, Anion Gap 4 L, BUN 24 H, Creatinine 0.81, Estim Creat Clear Calc 61.20, Est GFR (MDRD) Af Amer 117, Est GFR (MDRD) Non-Af 97, BUN/Creatinine Ratio 29.8 H, Glucose 106, Calcium 8.3 L Micro: Microbiology 10/27/22 15:15 Urine, Catheterized Urine Culture - Final Citrobacter freundii 10/27/22 13:40 Stool Stool Occult Blood (MAGDALENA) - Final Radiography Diagnostic Testing: Radiology Impression Echocardiogram 10/27/22 19:22 Interpretation Summary Normal LV size. Left ventricular systolic function is normal. The estimated ejection fraction is 60 %. The left atrium is mildly enlarged. The right atrium is moderately enlarged. Pulmonary artery systolic pressure is 45 mmHg. Ordering Physician: Andrew Cadena Performed By: Silver Montero, [facility] Chest X-Ray 10/28/22 08:33 IMPRESSION: Elevation of left hemidiaphragm with increasing small left pleural effusion and left basilar atelectasis. Electronically Signed: Ruiz Zapata MD at 13:51 EDT , Rhythm Strip Rhythm Strip: A-fib Rate: 74 Ectopy: None Physical Exam Narrative Seen and examined. Patient shortness of breath is better. No dyspnea at rest. Swelling little better. Patient is more awake and verbal. He states that his power of deputy commonwealth's attorney for health is his sister. He has a niece in [place] who his neurologist specializes in epilepsy. Overall improvement in patient's shortness of breath and leg swelling. Physical exam: General: Alert, Oriented x3, Cooperative HEENT: Atraumatic, PERRLA, EOMI, Normocephalic Oral: Oral mucosa dry. No Gingival or Mucosal Lesions/ Ulcerations Neck: Supple, No JVD, Negative Carotid Bruits Lungs: Dyspnea on moderate exertion. On 2 L of oxygen. Air entry diminished in left lower chest. Left hemidiaphragm elevation no wheezing/crepitation Cardiovascular: irregular rate and rhythm, heart rate controlled systolic murmur over right second ICS and LLSB Abdomen: Bowel Sounds Present, Soft, nontender. Moderate ascites but not causing respiratory distress : No renal angle tenderness. No suprapubic tenderness. Extremities: Bilateral lower extremity pitting, 3+ edema, Capillary Refill Less than 3 Seconds Skin: No rashes, No breakdown Musculoskeletal: No Tenderness to Palpation of Joints or Extremities ROM restricted at knee and hip joints. Neurological: Cranial nerves II-XII grossly intact, DTR 2+/4 and Symmetrical Psych/Mental Status: Flat affect. Assessment & Plan Assessment/Plan (1) Acute and chronic respiratory failure with hypercapnia: (2) Acute and chronic respiratory failure with hypoxia: PLAN: Plan This is a 87-year-old gentleman is being admitted for dyspnea at rest, severe anemia and generalized edema/anasarca. 1. Acute on chronic combined respiratory failure: Patient is being admitted to PCU. As per the patient has been on oxygen, 2 L for about 1 year in [place]. Currently patient requires 6 L. ABG reviewed. 7.4 on 2 L of oxygen. Bicarb 35 in BMP suggestive of chronic CO2 retainer. BiPAP stat ordered. 10/28: Patient on 2 L of oxygen. Patient was on BiPAP last night and improvement in the respiratory failure. 10/29: Shortness of breath is better. 2. Acute on chronic heart failure, exact etiology, classification and type unclear seems nonischemic from history with valvular heart disease: Patient had old medical record in [place]. We will try to get medical record from [facility] [place]. Lasix 40 mg IV twice daily first dose now. 2D echo ordered. Heart failure core measures including intake and output, fluid restriction less than 1500 mL, daily weight monitoring, kidney and electrolytes monitoring. 10/28: 2D echo done. Repeat chest x-ray shows similar finding with increasing small left pleural effusion and left basilar atelectasis and elevation of left hemidiaphragm. Continue IV Lasix. Mild hypokalemia potassium replaced. Spironolactone dose increased to 25 mg daily. 10/29: Echo shows EF 60% normal LV size and systolic function, LA mildly enlarged, RA moderately enlarged PASP 45 mmHg suggestive of acute on chronic HFpEF with mild to moderate pulmonary hypertension. Continue IV diuretic. K3.5. I will increase the dose of his spironolactone. 3. Chronic A-fib and valvular heart disease: Patient on Eliquis 5 mg twice daily supposed to resume 6 days ago. For now we will hold his Eliquis as hemoglobin is 7.6. 10/28 heart rate is controlled. 4. Severe anemia: Patient was last admitted about 10 days ago. At that time EGD shows nonsevere erosive esophagitis, 2 bleeding angiodysplastic lesion in the stomach treated with heater probe. Small hiatus hernia. Oozing gastric ulcer with visible vessel. No gross lesion in duodenum. Stool for occult blood negative. Monitor CBC daily. Type and crossmatch ordered in ED. If hemoglobin drops less than 7 g will need PRBC transfusion. 10/28: Hemoglobin decreased to 6.9. 1 unit PRBC ordered. MCV 101. Ferritin 917, TIBC low. Serum iron pending. Reticulocyte count 1.0%, immature reticulocyte fraction 18% high. 10/29: Hemoglobin 7.4. Platelet count 67,000. Continue to hold anticoagulant. 5. AML: As mentioned above, his oncologist in [place] gave him 7 months to about 1 year. At present patient seems not candidate for chemotherapy given his disability and Karnofsky low functional score. 10/[address] Vasquez and Dr. Hernandez and Dr. Hernandez will see. Serum iron is ordered. Abdominal ultrasound shows moderate ascites, nonspecific hepatocellular disease with a diffuse increased echogenicity. Spleen normal size 10.5 cm. 10/29: I talked to Dr. Hernandez yesterday evening. Patient has very low Karnofsky's performance status therefore not good for further evaluation of AML or management and he thinks he is hospice appropriate. Patient stated he had some treatment of AML back in [place] but not sure what it was since patient also has dementia. I called patient Zuhair left voice message to call back to discuss on the hospice. 6. Suspected cystitis: Patient complain of increased urgency and frequency: UA shows WBC 5-10 cells, RBC 0 LE 100, nitrite positive. Patient empirically started on IV ceftriaxone. Urine culture is ordered. 10/28: Urine culture primary shows gram-negative kendrick lactose ob gyn physician assistant more than 100,000 colonies. Continue ceftriaxone. 10/29: Urine culture report changed to Citrobacter freundii, resistant to cefazolin and ceftriaxone. Antibiotic changed to Cipro. Other comorbidities include chronic gout, prostate cancer: Patient on tamsulosin finasteride. Continue ferrous sulfate. Hypothyroidism: TSH elevated. Levothyroxine dose increased to 50 mcg daily. Living will/advanced directive/end of life care: Patient does have living will or advanced directive. Patient's son is power of deputy commonwealth's attorney for health. After discussion of benefits/risks procedures involved with full code, DNR CC arrest and DNR CC, the patient opted for DNRCC arrest with no intubation Patient doesn't want artificial life support including intubation, tube feed, ventilator and/chest compression, central venous catheter, vasopressor and DC shock if needed Total time spent in [id number] encounter in discussion of advanced directive 17 minutes. Microbiology Past 72 Hours 10/27/22 15:15 Urine, Catheterized Urine Culture - Final Citrobacter freundii 10/27/22 13:40 Stool Stool Occult Blood (MAGDALENA) - Final Laboratory Results 10/27/22 14:30: Diff Path Review Reviewed, Crossmatch See Detail 10/28/22 06:19: Diff Path Review Reviewed 10/28/22 10:43: TIBC 248 L, Ferritin 917 H, Vitamin B12 1440 H, Folate 14.60, Miscellaneous Test 10/29/22 04:45: WBC 4.6, RBC 2.34 L, Hgb 7.4 L, Hct 23.4 L, MCV 100.0 H, MCH 31.6, MCHC 31.6 L, RDW Std Deviation 73.0 H, RDW Coeff of Jero 20.6 H, Plt Count 67 L, MPV 12.3 H, Immature Gran % (Auto) SOLDERER DIPPER, Neut % (Auto) SOLDERER DIPPER, Lymph % (Auto) SOLDERER DIPPER, [place] % (Auto) SOLDERER DIPPER, Eos % (Auto) SOLDERER DIPPER, Baso % (Auto) SOLDERER DIPPER, Absolute Neuts (auto) 2.5, Absolute Lymphs (auto) 1.56, Total Counted 100, Neutrophils % (Manual) 55, Lymphocytes % (Manual) 34, Monocytes % (Manual) 6, Metamyelocytes % 1, Myelocytes % 4 H, Nucleated RBC % SOLDERER DIPPER, Nucleated RBCs/100 WBC 2, Diff Path Review May foll, Platelet Estimate MKD DEC, Anisocytosis 2+, Microcytosis 1+, Macrocytosis 1+, Sodium 144, Potassium 3.5, Chloride 103, Carbon Dioxide 37.0 H, Anion Gap 4 L, BUN 24 H, Creatinine 0.81, Estim Creat Clear Calc 61.20, Est GFR (MDRD) Af Amer 117, Est GFR (MDRD) Non-Af 97, BUN/Creatinine Ratio 29.8 H, Glucose 106, Calcium 8.3 L Clinical Impression(s) from Imaging Studies Chest X-Ray 10/27/22 13:41 IMPRESSION: Essentially stable examination with elevation of the left hemidiaphragm with stable pleural parenchymal changes at the left lung base. Blunting of the right costophrenic angle with mild right basilar atelectasis. Electronically Signed: Ruiz Zapata MD at 14:59 EDT , Abdomen Ultrasound 10/27/22 15:53 IMPRESSION: Findings consistent with nonspecific hepatocellular disease and ascites. Nonvisualization of pancreas due to bowel gas producing artifact. CT would be useful for further evaluation if indicated Electronically Signed: Raul Eckert MD at 17:11 EDT , Echocardiogram 10/27/22 19:22 Interpretation Summary Normal LV size. Left ventricular systolic function is normal. The estimated ejection fraction is 60 %. The left atrium is mildly enlarged. The right atrium is moderately enlarged. Pulmonary artery systolic pressure is 45 mmHg. Ordering Physician: Andrew Cadena Performed By: Silver Montero RCS Chest X-Ray 10/28/22 08:33 IMPRESSION: Elevation of left hemidiaphragm with increasing small left pleural effusion and left basilar atelectasis. Charges/Coding Visit Charges Inpatient E&M: 41409 Subs Hosp L2
--- NOTE | 2022-10-29 12:59 | CASEMGMT ---
SW spoke with physician and patient's sister Alley is in agreement with Hospice. SW spoke with Alley and she asked that patient be discharged back to [place] and [place] will initiate Hospice. SW let physician know this information. Plan: d/c back to [place] under intermediate level of care with a Hospice referral. Dimple Awad HYPOID GEAR GENERATOR GONZÁLEZ
[2022-10-29] MEDS: Ciprofloxacin 500 MG Tablet PO ×2 (13:09→21:11)
[2022-10-29] MEDS: Acetaminophen 325 MG Tablet 650 MG PO (13:21)
[2022-10-29] MEDS: Sucralfate 1 GM Tablet PO (17:51)
[2022-10-29] MEDS: Finasteride 5 MG Tablet PO (21:11)
[2022-10-29] MEDS: Metoprolol Tartrate 25 MG Tablet PO (21:11)
[2022-10-29] MEDS: Donepezil HCl 5 MG Tablet PO ×2 (21:11)
[2022-10-29] MEDS: oxyCODONE 5 MG Tablet PO (21:22)
--- NOTE | 2022-10-29 21:34 | CPS ---
Patient refused PAP therapy for the night, on 3L.
[2022-10-29] MEDS: Atorvastatin Calcium 40 MG Tablet PO (22:15)
[2022-10-30] VITALS (13 sets, daily range): BP systolic 96–127; BP diastolic 47–69; PULSE 73–88; RESP 12–24; TEMP 36.4–37; O2SAT 94–99; BMI 28.0
[2022-10-30] MEDS: oxyCODONE 5 MG Tablet PO (03:32)
[2022-10-30] MEDS: Acetaminophen 325 MG Tablet 650 MG PO (03:32)
[2022-10-30] MEDS: Levothyroxine 50 MCG Tablet PO (05:27)
[2022-10-30] MEDS: Isosorbide DN 10 MG Tablet 5 MG PO ×2 (05:27→15:21)
[2022-10-30 06:28] LABS: Hematocrit 21.7 % (40-54); Hemoglobin 6.8 g/dL (13.0-16.5); Mean Corp Hgb Conc 31.3 g/dL (32-36); Mean Corpuscular Hgb 31.3 pg (27.0-32.0); Mean Platelet Vol. 11.8 fl (6.2-12.0); POSITIVE COUNT YES; POSITIVE MORPHOLOGY YES; Platelet Count 58 K/mm3 (150-450); RBC Distribution Width CV 19.9 % (11.6-14.6); RBC Distribution Width SD 73.2 fl (35.1-43.9); Red Blood Count 2.17 M/mm3 (4.6-6.2)
[2022-10-30 06:46] LABS: Differential Indicated MANUAL DIFF
[2022-10-30 07:00] LABS: Corrected WBC 3.4 K/mm3 (4.4-11.0)
[2022-10-30 07:03] LABS: Atypical Lymphocyte 1+ %; Platelet Estimate MOD DEC (ADEQ); Platelet Morphology LARGE
[2022-10-30 07:04] LABS: Metamyelocyte 1 % (0-1); Myelocyte 3 % (0-0); Neutrophil-Segmented 64 % (47-70); Total Cells Counted 100 (MANUAL DIFF)
[2022-10-30 07:05] LABS: Absolute Neutrophil Count 2.2 X10^3/uL (2.0-7.7); Lymphocyte 31 % (19-41); Monocyte 1 % (0-10)
[2022-10-30 07:06] LABS: Absolute Lymphocyte Count 0.96 X10^3/uL (0.83-4.51)
[2022-10-30 07:10] LABS: Nucleated Red Bld Cells,Manual 4 % (0-5)
[2022-10-30 07:12] LABS: Anion Gap 2 (5-15); BUN 26 mg/dL (7-18); BUN/Creat Ratio 23.6 RATIO (10-20); Calcium,Total 8.1 mg/dL (8.5-10.1); Chloride 101 mmol/L (98-107); EST Glomerular Filtration Rate 67 mL/min (>60); Est Glom Filt Rate - Afr Amer 82 mL/min (>60); Estimated Creatinine Clearance 45.07 ml/min; Glucose 125 mg/dL (74-106); Potassium 3.6 mmol/L (3.5-5.1); Sodium Level 142 mmol/L (136-145)
[2022-10-30] MEDS: Pantoprazole Sodium 40 MG Tablet PO (08:34)
[2022-10-30] MEDS: Ferrous Sulfate 325 MG Tablet PO (08:34)
[2022-10-30] MEDS: Tamsulosin HCl 0.4 MG Capsule PO (08:35)
[2022-10-30] MEDS: Sucralfate 1 GM Tablet PO ×2 (08:35→15:20)
[2022-10-30] MEDS: Allopurinol 100 MG Tablet 150 MG PO (08:35)
[2022-10-30] MEDS: Ciprofloxacin 500 MG Tablet PO (08:35)
[2022-10-30] MEDS: Doxazosin 1 MG Tablet 2 MG PO (08:35)
[2022-10-30] MEDS: Spironolactone 25 MG Tablet PO (08:37)
--- NOTE | 2022-10-30 08:39 | PCM.TXEXTCAR ---
Diet Diet Order/Speech Therapy: 10/27/22 19:22 Diet: Cardiac - Heart Healthy Food consistency:: Regular Liquid Consistency:: Regular/Thin Dietary Modifications:: Sodium Restricted Routine Orders/Code Status Suppository Type: Dulcolax 10mg Suppository Frequency: Daily PRN Code Status: DNRCC (DNR CC going to be hospice in [facility].) Therapies Weight Bearing: Weight bearing as tolerated Extremity Affected:: Bilateral Lower Physical Therapy: Eval and Treat Occupational Therapy: Eval and Treat Speech Therapy: Eval and Treat Problem/Diagnosis (1) Acute and chronic respiratory failure with hypercapnia: Status: Chronic Code(s): J96.22 - Acute and chronic respiratory failure with hypercapnia (2) Acute and chronic respiratory failure with hypoxia: Status: Chronic Code(s): J96.21 - Acute and chronic respiratory failure with hypoxia Plan This is a 87-year-old gentleman is being admitted for dyspnea at rest, severe anemia and generalized edema/anasarca. 1. Acute on chronic combined respiratory failure: Patient is being admitted to PCU. As per the patient has been on oxygen, 2 L for about 1 year in [place]. Currently patient requires 6 L. ABG reviewed. 7.4 on 2 L of oxygen. Bicarb 35 in BMP suggestive of chronic CO2 retainer. BiPAP stat ordered. 10/28: Patient on 2 L of oxygen. Patient was on BiPAP last night and improvement in the respiratory failure. 10/29: Shortness of breath is better. 2. Acute on chronic heart failure, exact etiology, classification and type unclear seems nonischemic from history with valvular heart disease: Patient had old medical record in [place]. We will try to get medical record from [facility]. Lasix 40 mg IV twice daily first dose now. 2D echo ordered. Heart failure core measures including intake and output, fluid restriction less than 1500 mL, daily weight monitoring, kidney and electrolytes monitoring. 10/28: 2D echo done. Repeat chest x-ray shows similar finding with increasing small left pleural effusion and left basilar atelectasis and elevation of left hemidiaphragm. Continue IV Lasix. Mild hypokalemia potassium replaced. Spironolactone dose increased to 25 mg daily. 10/29: Echo shows EF 60% normal LV size and systolic function, LA mildly enlarged, RA moderately enlarged PASP 45 mmHg suggestive of acute on chronic HFpEF with mild to moderate pulmonary hypertension. Continue IV diuretic. K3.5. I will increase the dose of his spironolactone. 3. Chronic A-fib and valvular heart disease: Patient on Eliquis 5 mg twice daily supposed to resume 6 days ago. For now we will hold his Eliquis as hemoglobin is 7.6. 10/28 heart rate is controlled. 4. Severe anemia: Patient was last admitted about 10 days ago. At that time EGD shows nonsevere erosive esophagitis, 2 bleeding angiodysplastic lesion in the stomach treated with heater probe. Small hiatus hernia. Oozing gastric ulcer with visible vessel. No gross lesion in duodenum. Stool for occult blood negative. Monitor CBC daily. Type and crossmatch ordered in ED. If hemoglobin drops less than 7 g will need PRBC transfusion. 10/28: Hemoglobin decreased to 6.9. 1 unit PRBC ordered. MCV 101. Ferritin 917, TIBC low. Serum iron pending. Reticulocyte count 1.0%, immature reticulocyte fraction 18% high. 10/29: Hemoglobin 7.4. Platelet count 67,000. Continue to hold anticoagulant. 5. AML: As mentioned above, his oncologist in [place] gave him 7 months to about 1 year. At present patient seems not candidate for chemotherapy given his disability and Karnofsky low functional score. 10/[address] Vasquez and Dr. Hernandez and Dr. Hernandez will see. Serum iron is ordered. Abdominal ultrasound shows moderate ascites, nonspecific hepatocellular disease with a diffuse increased echogenicity. Spleen normal size 10.5 cm. 10/29: I talked to Dr. Hernandez yesterday evening. Patient has very low Karnofsky's performance status therefore not good for further evaluation of AML or management and he thinks he is hospice appropriate. Patient stated he had some treatment of AML back in [place] but not sure what it was since patient also has dementia. I called patient Zuhair left voice message to call back to discuss on the hospice. 6. Suspected cystitis: Patient complain of increased urgency and frequency: UA shows WBC 5-10 cells, RBC 0 LE 100, nitrite positive. Patient empirically started on IV ceftriaxone. Urine culture is ordered. 10/28: Urine culture primary shows gram-negative kendrick lactose behavioral health therapist more than 100,000 colonies. Continue ceftriaxone. 10/29: Urine culture report changed to Citrobacter freundii, resistant to cefazolin and ceftriaxone. Antibiotic changed to Cipro. Other comorbidities include chronic gout, prostate cancer: Patient on tamsulosin finasteride. Continue ferrous sulfate. Hypothyroidism: TSH elevated. Levothyroxine dose increased to 50 mcg daily. Living will/advanced directive/end of life care: Patient does have living will or advanced directive. Patient's son is power of district attorney for health. After discussion of benefits/risks procedures involved with full code, DNR CC arrest and DNR CC, the patient opted for DNRCC arrest with no intubation Patient doesn't want artificial life support including intubation, tube feed, ventilator and/chest compression, central venous catheter, vasopressor and DC shock if needed Total time spent in ahor-mu-ipky encounter in discussion of advanced directive 17 minutes. Microbiology Past 72 Hours 10/27/22 15:15 Urine, Catheterized Urine Culture - Final Citrobacter freundii 10/27/22 13:40 Stool Stool Occult Blood (MAGDALENA) - Final Laboratory Results 10/27/22 14:30: Diff Path Review Reviewed, Crossmatch See Detail 10/28/22 06:19: Diff Path Review Reviewed 10/28/22 10:43: TIBC 248 L, Ferritin 917 H, Vitamin B12 1440 H, Folate 14.60, Miscellaneous Test 10/29/22 04:45: WBC 4.6, RBC 2.34 L, Hgb 7.4 L, Hct 23.4 L, MCV 100.0 H, MCH 31.6, MCHC 31.6 L, RDW Std Deviation 73.0 H, RDW Coeff of Jero 20.6 H, Plt Count 67 L, MPV 12.3 H, Immature Gran % (Auto) SOLUTIONS ENGINEER, Neut % (Auto) SOLUTIONS ENGINEER, Lymph % (Auto) SOLUTIONS ENGINEER, [place] % (Auto) SOLUTIONS ENGINEER, Eos % (Auto) SOLUTIONS ENGINEER, Baso % (Auto) SOLUTIONS ENGINEER, Absolute Neuts (auto) 2.5, Absolute Lymphs (auto) 1.56, Total Counted 100, Neutrophils % (Manual) 55, Lymphocytes % (Manual) 34, Monocytes % (Manual) 6, Metamyelocytes % 1, Myelocytes % 4 H, Nucleated RBC % SOLUTIONS ENGINEER, Nucleated RBCs/100 WBC 2, Diff Path Review May foll, Platelet Estimate MKD DEC, Anisocytosis 2+, Microcytosis 1+, Macrocytosis 1+, Sodium 144, Potassium 3.5, Chloride 103, Carbon Dioxide 37.0 H, Anion Gap 4 L, BUN 24 H, Creatinine 0.81, Estim Creat Clear Calc 61.20, Est GFR (MDRD) Af Amer 117, Est GFR (MDRD) Non-Af 97, BUN/Creatinine Ratio 29.8 H, Glucose 106, Calcium 8.3 L Clinical Impression(s) from Imaging Studies Chest X-Ray 10/27/22 13:41 IMPRESSION: Essentially stable examination with elevation of the left hemidiaphragm with stable pleural parenchymal changes at the left lung base. Blunting of the right costophrenic angle with mild right basilar atelectasis. Electronically Signed: Ruiz Zapata MD at 14:59 EDT , Abdomen Ultrasound 10/27/22 15:53 IMPRESSION: Findings consistent with nonspecific hepatocellular disease and ascites. Nonvisualization of pancreas due to bowel gas producing artifact. CT would be useful for further evaluation if indicated Electronically Signed: Raul Eckert MD at 17:11 EDT , Echocardiogram 10/27/22 19:22 Interpretation Summary Normal LV size. Left ventricular systolic function is normal. The estimated ejection fraction is 60 %. The left atrium is mildly enlarged. The right atrium is moderately enlarged. Pulmonary artery systolic pressure is 45 mmHg. Ordering Physician: Andrew Cadena Performed By: Silver Motnero RCS Chest X-Ray 10/28/22 08:33 IMPRESSION: Elevation of left hemidiaphragm with increasing small left pleural effusion and left basilar atelectasis. Allergies/Procedures Done in Hospital Allergies No Known Allergies Allergy (Verified 10/15/22 14:23) Type of Care/Length of Stay Estimated LOS: Convalescent Care Less Than 30 days Type of Care Needed: Intermediate Rehab Potential: Good Prognosis: Good Additional Orders/Day of Discharge Day of Discharge: 10/30/22 Dietary and Speech Recommendations Dietitian Recommendations/Changes: Continue therapeutic diet - will change to include Sodium Restriction d/t anasarca Continue ONS w/ medpass Monitor for changes in pt nutritional status and need for additional nutrition rec Discharge Plan Admission Admit Date/Time: 10/27/22 15:55 Primary Reason for Your Visit: Anasarca, CHF exacerbation, AML, severe anemia Attending Provider: Andrew Cadena Primary Care Provider: Care Physician,No Primary Consulting Providers: Jose Acosta; Grant Hernandez; Evelyn Vasquez; Harris Allen; Peter Reis; Dakotah Harper; Jeramy Contreras; Lorena Whitfield SOLUTIONS ENGINEER Instructions Additional Instructions / Restrictions: Follow-up with hospice care in [facility].Patient physical status and mental status not good for evaluation and chemotherapy for AML. Discharge Orders/Prescriptions Prescriptions: New furosemide 40 mg Tablet 40 mg PO BIDLX Qty: 0 0RF Rx Instructions: Hold if systolic blood pressure less than 100 mmHg atorvastatin 40 mg Tablet 40 mg PO QHS Qty: 0 0RF acetaminophen 325 mg Tablet 650 mg PO Q6H PRN PRN (Reason: Pain 1-10 Or Fever >100.7) Qty: 0 0RF sennosides-docusate sodium [Stool Softener-Stimulant Laxat] 8.6-50 mg Tablet 2 tab PO BID PRN PRN (Reason: Constipation) Qty: 0 0RF ciprofloxacin HCl 500 mg Tablet 500 mg PO BID 5 Days Qty: 0 0RF spironolactone 25 mg Tablet 25 mg PO DAILY Qty: 0 0RF Rx Instructions: Hold if potassium more than 5.0 ascorbic acid (vitamin C) 500 mg tablet 500 mg PO BID Qty: 60 2RF Continued ferrous sulfate [Feosol] 325 mg (65 mg iron) tablet 325 mg PO DAILY finasteride 5 mg tablet 5 mg PO DAILY Rx Instructions: QHS metoprolol tartrate 25 mg tablet 25 mg PO BID tamsulosin [Flomax] 0.4 mg capsule 0.4 mg PO DAILY terazosin 2 mg capsule 2 mg PO DAILY Ensure Clear Liquid 120 ml PO 4X/DAY Qty: 0 0RF sucralfate 1 gram Tablet 1 g PO 0700,1600 Qty: 0 0RF pantoprazole 40 mg tablet,delayed release (DR/EC) 40 mg PO BIDCM Qty: 60 0RF allopurinol 300 mg tablet 150 mg PO DAILY levothyroxine 25 mcg tablet 25 mcg PO DAILY donepezil [Aricept] 5 mg tablet 5 mg PO QHS Discontinued Eliquis 5 mg tablet 5 mg PO BID Hold Instructions: Resume on 10/21/22. furosemide 20 mg tablet 20 mg PO DAILY potassium chloride [K-Tab] 10 mEq tablet extended release 10 meq PO BID sennosides [Natural Senna Laxative] 8.6 mg tablet 17.2 mg PO QHS Referrals / Follow Up: Care Physician,No Primary [Primary Care Provider] - Disposition Disposition (needs filled in before D/C Order can be placed): Hospice in Medical Facility
--- NOTE | 2022-10-30 08:49 | NURSING ---
I spoke with Debra at [facility] informing her the pt john be d/c today.
--- NOTE | 2022-10-30 08:54 | NURSING ---
I left a vm for Alley the pt's sister to call [facility] so we can inform her that the pt will be d/c to [facility] today
--- NOTE | 2022-10-30 10:48 | DS.PCM_ITS ---
Providers Date of Admission: 10/27/22 Date of Discharge: 10/30/22 Primary Care Physician: No Primary Care Phys Consultations 10/28/22 10:13 Consult: Oncology/Hematology Routine Consulting Provider: [facility] ([facility]) Reason for Consult: AML, stage unclear, ANASARCA, HF, SOB EMERGENT Consult: No MD Notified: Yes Date Notified: 10/28/22 Time Notified: 10:14 Method of Notification: Verbal Reason For Visit: HF EXA, ANASARCA, AML Diagnosis Discharge Diagnosis (1) Acute and chronic respiratory failure with hypercapnia: Status: Chronic Code(s): J96.22 - Acute and chronic respiratory failure with hypercapnia (2) Acute and chronic respiratory failure with hypoxia: Status: Chronic Code(s): J96.21 - Acute and chronic respiratory failure with hypoxia Plan This is a 87-year-old gentleman is being admitted for dyspnea at rest, severe anemia and generalized edema/anasarca. 1. Acute on chronic combined respiratory failure: Patient is being admitted to PCU. As per the patient has been on oxygen, 2 L for about 1 year in [place]. Currently patient requires 6 L. ABG reviewed. 7.4 on 2 L of oxygen. Bicarb 35 in BMP suggestive of chronic CO2 retainer. BiPAP stat ordered. 10/28: Patient on 2 L of oxygen. Patient was on BiPAP last night and improvement in the respiratory failure. 10/29: Shortness of breath is better. 2. Acute on chronic heart failure, exact etiology, classification and type unclear seems nonischemic from history with valvular heart disease: Patient had old medical record in [place]. We will try to get medical record from [facility]. Lasix 40 mg IV twice daily first dose now. 2D echo ordered. Heart failure core measures including intake and output, fluid restriction less than 1500 mL, daily weight monitoring, kidney and electrolytes monitoring. 10/28: 2D echo done. Repeat chest x-ray shows similar finding with increasing small left pleural effusion and left basilar atelectasis and elevation of left hemidiaphragm. Continue IV Lasix. Mild hypokalemia potassium replaced. Spi ronolactone dose increased to 25 mg daily. 10/29: Echo shows EF 60% normal LV size and systolic function, LA mildly enlarged, RA moderately enlarged PASP 45 mmHg suggestive of acute on chronic HFpEF with mild to moderate pulmonary hypertension. Continue IV diuretic. K3.5. I will increase the dose of his spironolactone. 10/30:BP is on lower side systolic 100s. Lasix IV changed to oral 40 mg twice daily. Serum potassium normal. Patient on spironolactone. Prescriptions given for Lasix and spironolactone. 3. Chronic A-fib and valvular heart disease: Patient on Eliquis 5 mg twice daily supposed to resume 6 days ago. For now we will hold his Eliquis as hemoglobin is 7.6. 10/28 heart rate is controlled. 4. Severe anemia: Patient was last admitted about 10 days ago. At that time EGD shows nonsevere erosive esophagitis, 2 bleeding angiodysplastic lesion in the stomach treated with heater probe. Small hiatus hernia. Oozing gastric ulcer with visible vessel. No gross lesion in duodenum. Stool for occult blood negative. Monitor CBC daily. Type and crossmatch ordered in ED. If hemoglobin drops less than 7 g will need PRBC transfusion. 10/28: Hemoglobin decreased to 6.9. 1 unit PRBC ordered. MCV 101. Ferritin 917, TIBC low. Serum iron pending. Reticulocyte count 1.0%, immature reticulocyte fraction 18% high. 10/29: Hemoglobin 7.4. Platelet count 67,000. Continue to hold anticoagulant. 10/30: Patient hemoglobin is 6.8. 1 unit PRBC transfusion was transfused. Patient can go to [facility] after that the patient going to be hospice in longterm. Currently patient is DNR CC arrest with no intubation and going as intermediate level of care and will be evaluated by hospice nurse in longterm and will be changed to inpatient hospice. 5. AML: As mentioned above, his oncologist in [place] gave him 7 months to about 1 year. At present patient seems not candidate for chemotherapy given his disability and Karnofsky low functional score. 10/[address] Vasquez and Dr. Hernandez and Dr. Hernandez will see. Serum iron is ordered. Abdominal ultrasound shows moderate ascites, nonspecific hepatocellular disease with a diffuse increased echogenicity. Spleen normal size 10.5 cm. 10/29: I talked to Dr. Hernandze yesterday evening. Patient has very low Karnofsky's performance status therefore not good for further evaluation of AML or management and he thinks he is hospice appropriate. Patient stated he had some treatment of AML back in [place] but not sure what it was since patient also has dementia. I called patient Zuhair left voice message to call back to discuss on the hospice. 6. Suspected cystitis: Patient complain of increased urgency and frequency: UA shows WBC 5-10 cells, RBC 0 LE 100, nitrite positive. Patient empirically started on IV ceftriaxone. Urine culture is ordered. 10/28: Urine culture primary shows gram-negative kendrick lactose panel gluer more than 100,000 colonies. Continue ceftriaxone. 10/29: Urine culture report changed to Citrobacter freundii, resistant to cefazolin and ceftriaxone. Antibiotic changed to Cipro. 10/30: Prescription given for Cipro to complete a total of 7 days. Other comorbidities include chronic gout, prostate cancer: Patient on tamsulosin finasteride. Continue ferrous sulfate. Hypothyroidism: TSH elevated. Levothyroxine dose increased to 50 mcg daily. Living will/advanced directive/end of life care: Patient does have living will or advanced directive. Patient's son is power of checker stocker for health. After discussion of benefits/risks procedures involved with full code, DNR CC arrest and DNR CC, the patient opted for DNRCC arrest with no intubation Patient doesn't want artificial life support including intubation, tube feed, ventilator and/chest compression, central venous catheter, vasopressor and DC shock if needed Total time spent in [id number] encounter in discussion of advanced directive 17 minutes. Microbiology Past 72 Hours 10/27/22 15:15 Urine, Catheterized Urine Culture - Final Citrobacter freundii 10/27/22 13:40 Stool Stool Occult Blood (MAGDALENA) - Final Laboratory Results 10/27/22 14:30: Diff Path Review Reviewed, Crossmatch See Detail 10/28/22 06:19: Diff Path Review Reviewed 10/28/22 10:43: TIBC 248 L, Ferritin 917 H, Vitamin B12 1440 H, Folate 14.60, Miscellaneous Test 10/29/22 04:45: WBC 4.6, RBC 2.34 L, Hgb 7.4 L, Hct 23.4 L, MCV 100.0 H, MCH 31.6, MCHC 31.6 L, RDW Std Deviation 73.0 H, RDW Coeff of Jero 20.6 H, Plt Count 67 L, MPV 12.3 H, Immature Gran % (Auto) [employer], Neut % (Auto) [employer], Lymph % (Auto) [employer], [place] % (Auto) [employer], Eos % (Auto) [employer], Baso % (Auto) [employer], Absolute Neuts (auto) 2.5, Absolute Lymphs (auto) 1.56, Total Counted 100, Neutrophils % (Manual) 55, Lymphocytes % (Manual) 34, Monocytes % (Manual) 6, Metamyelocytes % 1, Myelocytes % 4 H, Nucleated RBC % [employer], Nucleated RBCs/100 WBC 2, Diff Path Review May foll, Platelet Estimate MKD DEC, Anisocytosis 2+, Microcytosis 1+, Macrocytosis 1+, Sodium 144, Potassium 3.5, Chloride 103, Carbon Dioxide 37.0 H, Anion Gap 4 L, BUN 24 H, Creatinine 0.81, Estim Creat Clear Calc 61.20, Est GFR (MDRD) Af Amer 117, Est GFR (MDRD) Non-Af 97, BUN/Creatinine Ratio 29.8 H, Glucose 106, Calcium 8.3 L Clinical Impression(s) from Imaging Studies Chest X-Ray 10/27/22 13:41 IMPRESSION: Essentially stable examination with elevation of the left hemidiaphragm with stable pleural parenchymal changes at the left lung base. Blunting of the right costophrenic angle with mild right basilar atelectasis. Electronically Signed: Ruiz Zapata MD at 14:59 EDT , Abdomen Ultrasound 10/27/22 15:53 IMPRESSION: Findings consistent with nonspecific hepatocellular disease and ascites. Nonvisualization of pancreas due to bowel gas producing artifact. CT would be useful for further evaluation if indicated Electronically Signed: Raul Eckert MD at 17:11 EDT , Echocardiogram 10/27/22 19:22 Interpretation Summary Normal LV size. Left ventricular systolic function is normal. The estimated ejection fraction is 60 %. The left atrium is mildly enlarged. The right atrium is moderately enlarged. Pulmonary artery systolic pressure is 45 mmHg. Ordering Physician: Andrew Cadena Performed By: Silver Montero RCS Chest X-Ray 10/28/22 08:33 IMPRESSION: Elevation of left hemidiaphragm with increasing small left pleural effusion and left basilar atelectasis. Medications at Discharge Home Medications ferrous sulfate 325 mg (65 mg iron) tablet (Feosol) 325 mg PO DAILY anemia 10/15/22 finasteride 5 mg tablet 5 mg PO DAILY prostate 10/15/22 metoprolol tartrate 25 mg tablet 25 mg PO BID 10/15/22 tamsulosin 0.4 mg capsule (Flomax) 0.4 mg PO DAILY 10/15/22 terazosin 2 mg capsule 2 mg PO DAILY 10/15/22 food supplemt, lactose-reduced (Ensure Clear oral liquid) 120 ml PO 4X/DAY #0 mL 10/18/22 pantoprazole 40 mg tablet,delayed release 40 mg PO BIDCM #60 tabs 10/18/22 sucralfate 1 gram tablet 1 g PO 0700,1600 #0 tabs 10/18/22 allopurinol 300 mg tablet 150 mg PO DAILY GOUT 10/27/22 donepezil 5 mg tablet (Aricept) 5 mg PO QHS 10/27/22 levothyroxine 25 mcg tablet 25 mcg PO DAILY THYROID 10/27/22 acetaminophen 325 mg tablet 650 mg (2 x 325 mg) PO Q6H PRN PRN Pain 1-10 Or Fever >100.7 #0 tabs 10/30/22 ascorbic acid (vitamin C) 500 mg tablet 500 mg PO BID #60 tabs 10/30/22 atorvastatin 40 mg tablet 40 mg PO QHS #0 tabs 10/30/22 ciprofloxacin HCl 500 mg tablet 500 mg PO BID 5 days #0 tabs 10/30/22 furosemide 40 mg tablet 40 mg PO BIDLX #0 tabs 10/30/22 sennosides 8.6 mg-docusate sodium 50 mg tablet (Stool Softener-Stimulant Laxative) 2 tab PO BID PRN PRN Constipation #0 tabs 10/30/22 spironolactone 25 mg tablet 25 mg PO DAILY #0 tabs 10/30/22 Physical Exam Narrative Seen and examined. Patient shortness of breath is better. No dyspnea at rest. Swelling is better. Patient is pale. Patient is more awake and verbal. He states that his power of checker stocker for health is his sister. Overall improvement in patient's shortness of breath and leg swelling. Physical exam: General: Alert, Oriented x3, Cooperative HEENT: Atraumatic, PERRLA, EOMI, Normocephalic Oral: Oral mucosa dry. No Gingival or Mucosal Lesions/ Ulcerations Neck: Supple, No JVD, Negative Carotid Bruits Lungs: Dyspnea on moderate exertion. On 2 L of oxygen. Air entry diminished in left lower chest. Left hemidiaphragm elevation no wheezing/crepitation Cardiovascular: irregular rate and rhythm, heart rate controlled systolic murmur over right second ICS and LLSB Abdomen: Bowel Sounds Present, Soft, nontender. Moderate ascites but not causing respiratory distress : No renal angle tenderness. No suprapubic tenderness. Extremities: Bilateral lower extremity pitting, 3+ edema, Capillary Refill Less than 3 Seconds Skin: No rashes, No breakdown Musculoskeletal: No Tenderness to Palpation of Joints or Extremities ROM restricted at knee and hip joints. Neurological: Cranial nerves II-XII grossly intact, DTR 2+/4 and Symmetrical Psych/Mental Status: Flat affect. Weight / BMI Weight Weight: 178 lb 11.2 oz Body Mass Index (BMI) 28.0 ABG / Lab / Microbiology Data 10/30/22 05:40 10/30/22 05:40 Laboratory: Laboratory Results - last 24 hr 10/30/22 05:40: WBC [employer], Corrected WBC 3.4 L, RBC 2.17 L, Hgb 6.8 L, Hct 21.7 L, MCV 100.0 H, MCH 31.3, MCHC 31.3 L, RDW Std Deviation 73.2 H, RDW Coeff of Jero 19.9 H, Plt Count 58 L, MPV 11.8, Neut % (Auto) Not Reportable, Absolute Neuts (auto) 2.2, Absolute Lymphs (auto) 0.96, Total Counted 100, Neutrophils % ( Manual) 64, Lymphocytes % (Manual) 31, Monocytes % (Manual) 1, Metamyelocytes % 1, Myelocytes % 3 H, Nucleated RBCs/100 WBC 4, Diff Path Review May foll, Atypical Lymphocytes 1+, Platelet Estimate MOD DEC, Plt Morphology Comment LARGE, Sodium 142, Potassium 3.6, Chloride 101, Carbon Dioxide 39.0 H, Anion Gap 2 L, BUN 26 H, Creatinine 1.10, Estim Creat Clear Calc 45.07, Est GFR (MDRD) Af Amer 82, Est GFR (MDRD) Non-Af 67, BUN/Creatinine Ratio 23.6 H, Glucose 125 H, Calcium 8.1 L Microbiology: Microbiology 10/30/22 09:35 Nasal Secretion SARS-CoV-2 Antigen (Rapid) - Final 10/27/22 15:15 Urine, Catheterized Urine Culture - Final Citrobacter freundii 10/27/22 13:40 Stool Stool Occult Blood (MAGDALENA) - Final Meaningful Use Info Meaningful Use Diagnoses (Choose all that apply): None applicable Discharge Plan Admission Admit Date/Time: 10/27/22 15:55 Primary Reason for Your Visit: Anasarca, CHF exacerbation, AML, severe anemia Attending Provider: Andrew Cadena Primary Care Provider: Care Physician,No Primary Consulting Providers: Jose Acosta; Grant Hernandez; Evelyn Vasquez; Harris Allen; Peter Reis; Dakotah Harper; Jeramy Contreras; Lorena Whitfield [employer] Instructions Additional Instructions / Restrictions: Follow-up with hospice care in [facility].Patient physical status and mental status not good for evaluation and chemotherapy for AML. Discharge Orders/Prescriptions Prescriptions: New furosemide 40 mg Tablet 40 mg PO BIDLX Qty: 0 0RF Rx Instructions: Hold if systolic blood pressure less than 100 mmHg atorvastatin 40 mg Tablet 40 mg PO QHS Qty: 0 0RF acetaminophen 325 mg Tablet 650 mg PO Q6H PRN PRN (Reason: Pain 1-10 Or Fever >100.7) Qty: 0 0RF sennosides-docusate sodium [Stool Softener-Stimulant Laxat] 8.6-50 mg Tablet 2 tab PO BID PRN PRN (Reason: Constipation) Qty: 0 0RF ciprofloxacin HCl 500 mg Tablet 500 mg PO BID 5 Days Qty: 0 0RF spironolactone 25 mg Tablet 25 mg PO DAILY Qty: 0 0RF Rx Instructions: Hold if potassium more than 5.0 ascorbic acid (vitamin C) 500 mg tablet 500 mg PO BID Qty: 60 2RF Continued ferrous sulfate [Feosol] 325 mg (65 mg iron) tablet 325 mg PO DAILY finasteride 5 mg tablet 5 mg PO DAILY Rx Instructions: QHS metoprolol tartrate 25 mg tablet 25 mg PO BID tamsulosin [Flomax] 0.4 mg capsule 0.4 mg PO DAILY terazosin 2 mg capsule 2 mg PO DAILY Ensure Clear Liquid 120 ml PO 4X/DAY Qty: 0 0RF sucralfate 1 gram Tablet 1 g PO 0700,1600 Qty: 0 0RF pantoprazole 40 mg tablet,delayed release (DR/EC) 40 mg PO BIDCM Qty: 60 0RF allopurinol 300 mg tablet 150 mg PO DAILY levothyroxine 25 mcg tablet 25 mcg PO DAILY donepezil [Aricept] 5 mg tablet 5 mg PO QHS Discontinued Eliquis 5 mg tablet 5 mg PO BID Hold Instructions: Resume on 10/21/22. furosemide 20 mg tablet 20 mg PO DAILY potassium chloride [K-Tab] 10 mEq tablet extended release 10 meq PO BID sennosides [Natural Senna Laxative] 8.6 mg tablet 17.2 mg PO QHS Referrals / Follow Up: Care Physician,No Primary [Primary Care Provider] - Disposition Disposition (needs filled in before D/C Order can be placed): Hospice in Medical Facility Charges/Coding Visit Charges Inpatient E&M: 48009 Disch Hosp >30min
[2022-10-30] MEDS: Ensure Clear 120 ML Liquid PO (15:19)
[2022-10-30] MEDS: Furosemide 40 MG Tablet PO (15:20)
[2022-10-30] MEDS: 0.9% Saline Lock 10 ML Syringe IV (16:41)
--- NOTE | 2022-10-30 17:27 | NURSING ---
Called report to mikel at [phone] at [facility] [place]
--- NOTE | 2022-10-30 18:40 | NURSING ---
Phone call made with voicemail left for update to sister. Pt sister requests pt wear clothing to [place]. Pants and shirt on pt, however pants are unbuttoned due to edema of lower of extremities and not fitting properly.
[2022-11-01 09:31] LABS: Pathologist Review Reviewed
[2022-11-01 15:42] LABS: Pathologist Review Reviewed
== END 2022-10-30 18:35 | disposition hospice, inpatient (51) | DRG 291 ==
LOC: ED 16:06 → PCU 16:08
PROVIDERS: Admitting Provider Internal Medicine; Emergency Provider Emergency Medicine; Visit Provider Internal Medicine
DX: I11.0 Hypertensive heart disease with heart failure (principal); J96.21 Acute and chronic respiratory failure with hypoxia; K25.4 Chronic or unspecified gastric ulcer with hemorrhage; J96.22 Acute and chronic respiratory failure with hypercapnia; C92.00 Acute myeloblastic leukemia, not having achieved remission; R18.8 Other ascites; E87.29 Other acidosis; I48.20 Chronic atrial fibrillation, unspecified; J98.11 Atelectasis; D69.6 Thrombocytopenia, unspecified; N30.90 Cystitis, unspecified without hematuria; C61 Malignant neoplasm of prostate; F03.90 Unspecified dementia, unspecified severity, without behavioral disturbance, psychotic disturbance, mood disturbance, and anxiety; K20.80 Other esophagitis without bleeding; D63.0 Anemia in neoplastic disease; K44.9 Diaphragmatic hernia without obstruction or gangrene; E03.9 Hypothyroidism, unspecified; E87.6 Hypokalemia; Z66 Do not resuscitate; Z79.01 Long term (current) use of anticoagulants; Z87.891 Personal history of nicotine dependence; Z51.5 Encounter for palliative care
CPT/HCPCS: 36415; 36600; 71045; 71046; 76700; 80048; 80053; 80061; 80076; 81001; 82274; 82607; 82728; 82746; 82803; 83550; 83605; 83690; 83735; 83880; 84100; 84439; 84443; 84484; 85025; 85045; 85610; 85730; 86644; 86850; 86900; 86901; 86920; 86922; 87077; 87086; 87088; 87186; 87426; 93005; 93306; 94002; 94003; 94762; 97116; 97162; 97166; 97530; 97535; 97802; 99285; J7040; J7050; P9016; Q9957; A4216; C8929; J1940; J2916

== ENCOUNTER → 2022-10-27 | Outpatient (REF) | payer MEDICARE, SELFPAY ==
[2022-10-27 08:58] LABS: Hematocrit 23.6 % (40-54); Hemoglobin 7.4 g/dL (13.0-16.5); Mean Corp Hgb Conc 31.4 g/dL (32-36); Mean Corpuscular Volume 102.2 fL (80-94); Mean Platelet Vol. 11.3 fl (6.2-12.0); POSITIVE COUNT YES; POSITIVE MORPHOLOGY YES; Platelet Count 81 K/mm3 (150-450); RBC Distribution Width CV 20.5 % (11.6-14.6); RBC Distribution Width SD 75.4 fl (35.1-43.9); Red Blood Count 2.31 M/mm3 (4.6-6.2)
[2022-10-27 08:59] LABS: Differential Indicated MANUAL DIFF
[2022-10-27 09:28] LABS: Anisocytosis 2+; Blast 2 % (0-0); Lymphocyte 26 % (19-41); Metamyelocyte 1 % (0-1); Neutrophil-Band 2 % (0-5); Neutrophil-Segmented 69 % (47-70); Nucleated Red Bld Cells,Manual 2 % (0-5); Total Cells Counted 100 (MANUAL DIFF)
[2022-10-27 09:29] LABS: Hypochromasia 1+; Platelet Estimate ADEQUATE (ADEQ)
[2022-10-27 09:30] LABS: Absolute Lymphocyte Count 1.56 X10^3/uL (0.83-4.51); Absolute Neutrophil Count 4.3 X10^3/uL (2.0-7.7)
[2022-10-28 13:03] LABS: Pathologist Review Reviewed
== END ==
LOC: OLS.WHLTCC 05:00
PROVIDERS: Visit Provider Internal Medicine
DX: D64.9 Anemia, unspecified (principal); G93.40 Encephalopathy, unspecified; J96.01 Acute respiratory failure with hypoxia; J90 Pleural effusion, not elsewhere classified; F03.90 Unspecified dementia, unspecified severity, without behavioral disturbance, psychotic disturbance, mood disturbance, and anxiety
CPT/HCPCS: 36415; 85025

== ENCOUNTER → 2022-11-04 | Outpatient (REF) | payer MEDICARE, SELFPAY ==
[2022-11-04 09:58] LABS: Hematocrit 24.8 % (40-54); Hemoglobin 7.8 g/dL (13.0-16.5); Mean Corp Hgb Conc 31.5 g/dL (32-36); Mean Corpuscular Hgb 31.3 pg (27.0-32.0); Mean Corpuscular Volume 99.6 fL (80-94); Mean Platelet Vol. 11.5 fl (6.2-12.0); POSITIVE COUNT YES; POSITIVE MORPHOLOGY YES; Platelet Count 75 K/mm3 (150-450); RBC Distribution Width CV 19.3 % (11.6-14.6); RBC Distribution Width SD 69.9 fl (35.1-43.9); Red Blood Count 2.49 M/mm3 (4.6-6.2); White Blood Count 5.9 K/mm3 (4.4-11.0)
[2022-11-04 09:59] LABS: Differential Indicated MANUAL DIFF
[2022-11-04 10:02] LABS: ALB/GLOB Ratio 1.1 RATIO (0.9-2.4); AST(SGOT) 73 U/L (15-37); Alanine Aminotransfer ALT/SGPT 72 U/L (16-61); Albumin, Serum 3.1 g/dL (3.2-5.0); Alkaline Phosphatase 252 U/L (45-117); Anion Gap 2 (5-15); BUN 26 mg/dL (7-18); BUN/Creat Ratio 24.5 RATIO (10-20); Calcium,Total 8.6 mg/dL (8.5-10.1); Chloride 101 mmol/L (98-107); Creatinine, Serum 1.06 mg/dL (0.70-1.30); EST Glomerular Filtration Rate 70 mL/min (>60); Est Glom Filt Rate - Afr Amer 85 mL/min (>60); Globulin 2.9 g/dL (2.2-4.2); Glucose 137 mg/dL (74-106); Potassium 3.5 mmol/L (3.5-5.1); Sodium Level 140 mmol/L (136-145)
[2022-11-04 10:26] LABS: Anisocytosis 1+; Blast 2 % (0-0); Hypochromasia 1+; Lymphocyte 24 % (19-41); Metamyelocyte 3 % (0-1); Neutrophil-Band 1 % (0-5); Neutrophil-Segmented 70 % (47-70); Nucleated Red Bld Cells,Manual 1 % (0-5); Total Cells Counted 100 (MANUAL DIFF)
[2022-11-04 10:27] LABS: Platelet Estimate MKD DEC (ADEQ)
[2022-11-04 10:28] LABS: Absolute Lymphocyte Count 1.41 X10^3/uL (0.83-4.51); Absolute Neutrophil Count 4.2 X10^3/uL (2.0-7.7); Lymphocyte # 1.41 X10^3/ul (0.83-4.51); Neutrophil # 4.19 X10^3/uL (2.7-7.7)
[2022-11-05 12:12] LABS: Pathologist Review Reviewed
== END ==
LOC: OLS.WHLEAS 05:00
PROVIDERS: Visit Provider Internal Medicine
DX: I50.9 Heart failure, unspecified (principal); Z79.899 Other long term (current) drug therapy
CPT/HCPCS: 36415; 80053; 82140; 85025

== ENCOUNTER → 2022-11-10 | Outpatient (REF) | payer MEDICARE, SELFPAY ==
[2022-11-10 08:01] LABS: Basophil# 0.02 X10^3/uL; Eosinophil# 0.01 X10^3/uL; Hematocrit 22.3 % (40-54); Hemoglobin 6.8 g/dL (13.0-16.5); Mean Corp Hgb Conc 30.5 g/dL (32-36); Mean Corpuscular Hgb 30.6 pg (27.0-32.0); Mean Corpuscular Volume 100.5 fL (80-94); Mean Platelet Vol. 12.9 fl (6.2-12.0); Monocyte# 0.54 X10^3/uL; NRBC Flagged by Analyzer 2.2 % (0-5); POSITIVE COUNT YES; POSITIVE MORPHOLOGY YES; Platelet Count 94 K/mm3 (150-450); RBC Distribution Width CV 19.5 % (11.6-14.6); RBC Distribution Width SD 68.7 fl (35.1-43.9); Red Blood Count 2.22 M/mm3 (4.6-6.2)
[2022-11-10 08:04] LABS: Differential Indicated SCAN CRITERIA MET
[2022-11-10 08:39] LABS: Anisocytosis 2+; Blast 3 % (0-0); Hypochromasia 2+; Lymphocyte 32 % (19-41); Neutrophil-Segmented 65 % (47-70); Nucleated Red Bld Cells,Manual 3 % (0-5); Platelet Estimate MOD DEC (ADEQ); Scan Smear per Review Criteria MANUAL DIFF; Total Cells Counted 100 (MANUAL DIFF)
[2022-11-10 08:41] LABS: Absolute Neutrophil Count 5.4 X10^3/uL (2.0-7.7); Lymphocyte # 2.64 X10^3/ul (0.83-4.51); Neutrophil # 5.36 X10^3/uL (2.7-7.7)
[2022-11-10 08:42] LABS: Absolute Lymphocyte Count 2.64 X10^3/uL (0.83-4.51); White Blood Count 8.3 K/mm3 (4.4-11.0)
[2022-11-10 08:43] LABS: AST(SGOT) 29 U/L (15-37); Alanine Aminotransfer ALT/SGPT 56 U/L (16-61); Albumin, Serum 2.9 g/dL (3.2-5.0); Alkaline Phosphatase 234 U/L (45-117); Anion Gap 1 (5-15); BUN 25 mg/dL (7-18); BUN/Creat Ratio 26.2 RATIO (10-20); Calcium,Total 8.5 mg/dL (8.5-10.1); Chloride 103 mmol/L (98-107); Creatinine, Serum 0.96 mg/dL (0.70-1.30); EST Glomerular Filtration Rate 79 mL/min (>60); Est Glom Filt Rate - Afr Amer 96 mL/min (>60); Globulin 2.8 g/dL (2.2-4.2); Glucose 86 mg/dL (74-106); Potassium 3.4 mmol/L (3.5-5.1); Protein, Total 5.7 g/dL (6.4-8.2); Sodium Level 144 mmol/L (136-145)
[2022-11-11 10:16] LABS: Pathologist Review Reviewed
== END ==
LOC: OLS.WHLCAR 05:00
PROVIDERS: Visit Provider Internal Medicine
DX: D62 Acute posthemorrhagic anemia (principal); G93.40 Encephalopathy, unspecified; J96.01 Acute respiratory failure with hypoxia; J90 Pleural effusion, not elsewhere classified; F03.90 Unspecified dementia, unspecified severity, without behavioral disturbance, psychotic disturbance, mood disturbance, and anxiety
CPT/HCPCS: 36415; 80050; 80053; 84443; 85025

== ENCOUNTER → 2022-11-11 | Outpatient (REF) | payer MEDICARE, SELFPAY ==
[2022-11-11 09:08] LABS: Hematocrit 24.2 % (40-54); Hemoglobin 7.4 g/dL (13.0-16.5); Mean Corp Hgb Conc 30.6 g/dL (32-36); Mean Corpuscular Hgb 30.8 pg (27.0-32.0); Mean Corpuscular Volume 100.8 fL (80-94); Mean Platelet Vol. 12.4 fl (6.2-12.0); POSITIVE COUNT YES; POSITIVE MORPHOLOGY YES; Platelet Count 100 K/mm3 (150-450); RBC Distribution Width CV 19.9 % (11.6-14.6); White Blood Count 7.4 K/mm3 (4.4-11.0)
[2022-11-11 09:10] LABS: Differential Indicated MANUAL DIFF
[2022-11-11 09:59] LABS: ALB/GLOB Ratio 1.1 RATIO (0.9-2.4); AST(SGOT) 26 U/L (15-37); Alanine Aminotransfer ALT/SGPT 51 U/L (16-61); Albumin, Serum 3.1 g/dL (3.2-5.0); Alkaline Phosphatase 250 U/L (45-117); Anion Gap 2 (5-15); BUN 23 mg/dL (7-18); BUN/Creat Ratio 22.5 RATIO (10-20); Calcium,Total 8.6 mg/dL (8.5-10.1); Chloride 100 mmol/L (98-107); Creatinine, Serum 1.02 mg/dL (0.70-1.30); EST Glomerular Filtration Rate 74 mL/min (>60); Est Glom Filt Rate - Afr Amer 89 mL/min (>60); Globulin 2.9 g/dL (2.2-4.2); Glucose 91 mg/dL (74-106); Potassium 3.4 mmol/L (3.5-5.1); Sodium Level 142 mmol/L (136-145)
[2022-11-11 10:55] LABS: Blast 1 % (0-0); Lymphocyte 18 % (19-41); Metamyelocyte 2 % (0-1); Monocyte 6 % (0-10); Myelocyte 1 % (0-0); Neutrophil-Segmented 72 % (47-70); Total Cells Counted 100 (MANUAL DIFF)
[2022-11-11 10:56] LABS: Anisocytosis 1+; Platelet Estimate SLT DEC (ADEQ)
[2022-11-11 10:57] LABS: Absolute Neutrophil Count 5.3 X10^3/uL (2.0-7.7); Red Cell Morphology N CHROM NORMAL (NORM C&C)
[2022-11-11 10:58] LABS: Absolute Lymphocyte Count 1.33 X10^3/uL (0.83-4.51); Lymphocyte # 1.33 X10^3/ul (0.83-4.51)
[2022-11-12 14:18] LABS: Pathologist Review Reviewed
== END ==
LOC: OLS.WHLCAR 05:00
PROVIDERS: Visit Provider Internal Medicine
DX: I50.9 Heart failure, unspecified (principal); Z79.899 Other long term (current) drug therapy
CPT/HCPCS: 36415; 80053; 82140; 85025

== ENCOUNTER → 2022-11-15 | Outpatient (REF) | payer MEDICARE, SELFPAY ==
[2022-11-15 09:06] LABS: Absolute Neutrophil Count 5.7 X10^3/uL (2.0-7.7); Basophil# 0.01 X10^3/uL; Basophil% 0.1 % (0-1); Eosinophil# 0.01 X10^3/uL; Eosinophils% 0.1 % (0-5); Hematocrit 23.6 % (40-54); Hemoglobin 7.2 g/dL (13.0-16.5); Lymphocyte % 20.9 % (19-41); Mean Corp Hgb Conc 30.5 g/dL (32-36); Mean Corpuscular Volume 101.7 fL (80-94); Mean Platelet Vol. 12.6 fl (6.2-12.0); Monocyte# 0.39 X10^3/uL; Monocyte% 4.8 % (0-10); NRBC Flagged by Analyzer 2.3 % (0-5); Neutrophil # 5.65 X10^3/uL (2.7-7.7); Neutrophil % 69.4 % (47-70); POSITIVE COUNT YES; POSITIVE MORPHOLOGY YES; Platelet Count 84 K/mm3 (150-450); RBC Distribution Width CV 19.9 % (11.6-14.6); Red Blood Count 2.32 M/mm3 (4.6-6.2); White Blood Count 8.1 K/mm3 (4.4-11.0)
[2022-11-15 09:14] LABS: Differential Indicated SCAN CRITERIA MET
[2022-11-15 09:24] LABS: ALB/GLOB Ratio 1.2 RATIO (0.9-2.4); AST(SGOT) 25 U/L (15-37); Alanine Aminotransfer ALT/SGPT 40 U/L (16-61); Albumin, Serum 3.5 g/dL (3.2-5.0); Alkaline Phosphatase 250 U/L (45-117); Anion Gap 1 (5-15); BUN 30 mg/dL (7-18); BUN/Creat Ratio 24.6 RATIO (10-20); Chloride 99 mmol/L (98-107); Creatinine, Serum 1.22 mg/dL (0.70-1.30); EST Glomerular Filtration Rate 60 mL/min (>60); Est Glom Filt Rate - Afr Amer 72 mL/min (>60); Globulin 2.9 g/dL (2.2-4.2); Glucose 98 mg/dL (74-106); Potassium 3.9 mmol/L (3.5-5.1); Protein, Total 6.4 g/dL (6.4-8.2); Sodium Level 141 mmol/L (136-145)
[2022-11-15 09:35] LABS: Anisocytosis 2+
[2022-11-15 09:36] LABS: Atypical Lymphocyte RARE %; Platelet Estimate SLT DEC (ADEQ)
== END ==
LOC: OLS.WHLCAR 04:00
PROVIDERS: Referring Provider Internal Medicine; Visit Provider Internal Medicine
DX: I50.9 Heart failure, unspecified (principal); Z79.899 Other long term (current) drug therapy
CPT/HCPCS: 36415; 80053; 82140; 85025

== ENCOUNTER → 2022-11-16 | Outpatient (CLI) | payer MEDICARE, SELFPAY ==
--- NOTE | 2022-11-16 07:27 | US_ITS ---
PROCEDURE: Ultrasound guided paracentesis. DATE OF EXAMINATION: November 16, 2022. INDICATION: Male, 87 years old. Ascites. PHYSICIAN: Ruiz Zapata M.D. TECHNIQUE: The risks, benefits, and alternatives to the procedure were explained to the patient. The specific risks of bleeding, infection, and damage to bowel were detailed and accepted. Witnessed informed consent was obtained. The abdomen was ultrasonographically surveyed. An appropriate pocket of fluid was identified at the right lower quadrant. The skin were cleaned and prepped in the usual sterile fashion. Using ultrasound guidance, the peritoneal cavity was accessed with a 5-Kinyarwanda paracentesis needle/catheter system. The trocar was removed. A total of 1100 ml of darwin-colored fluid were removed from the peritoneal cavity. The catheter was removed and a sterile dressing was applied. The procedure was well tolerated. US/Paracentesis with US IMPRESSION: Ultrasound guided paracentesis. Electronically Signed: Ruiz Zapata MD at 9:16 EDT ,
[2022-11-16] MEDS: Lidocaine 2% (20 ml mdv) 20 ML Vial INFILT (08:22)
[2022-11-16 08:53] VITALS: BP 112/51; BP 112/52; BP 99/65; PULSE 66; PULSE 67; PULSE 68; RESP 20; TEMP 36.4; O2SAT 98
== END | disposition home or self-care (01) ==
PROVIDERS: PCP Internal Medicine; Referring Provider Nurse Practitioner Adult Health; Visit Provider Nurse Practitioner Adult Health
DX: R18.8 Other ascites (principal)
CPT/HCPCS: 49083

== ENCOUNTER → 2022-11-18 | Outpatient (REF) | payer MEDICARE, SELFPAY ==
[2022-11-18 09:02] LABS: Absolute Lymphocyte Count 1.92 X10^3/uL (0.83-4.51); Absolute Neutrophil Count 4.9 X10^3/uL (2.0-7.7); Eosinophil# 0.01 X10^3/uL; Eosinophils% 0.1 % (0-5); Hematocrit 23.5 % (40-54); Hemoglobin 7.2 g/dL (13.0-16.5); Lymphocyte # 1.92 X10^3/ul (0.83-4.51); Lymphocyte % 25.4 % (19-41); Mean Corp Hgb Conc 30.6 g/dL (32-36); Mean Corpuscular Hgb 31.2 pg (27.0-32.0); Mean Corpuscular Volume 101.7 fL (80-94); Mean Platelet Vol. 12.4 fl (6.2-12.0); Monocyte# 0.54 X10^3/uL; Monocyte% 7.1 % (0-10); NRBC Flagged by Analyzer 2.8 % (0-5); Neutrophil # 4.91 X10^3/uL (2.7-7.7); Neutrophil % 64.9 % (47-70); POSITIVE COUNT YES; POSITIVE MORPHOLOGY YES; Platelet Count 86 K/mm3 (150-450); RBC Distribution Width SD 72.3 fl (35.1-43.9); Red Blood Count 2.31 M/mm3 (4.6-6.2); White Blood Count 7.6 K/mm3 (4.4-11.0)
[2022-11-18 09:11] LABS: Differential Indicated SCAN CRITERIA MET
[2022-11-18 09:16] LABS: ALB/GLOB Ratio 1.1 RATIO (0.9-2.4); AST(SGOT) 25 U/L (15-37); Alanine Aminotransfer ALT/SGPT 36 U/L (16-61); Albumin, Serum 3.3 g/dL (3.2-5.0); Alkaline Phosphatase 235 U/L (45-117); Anion Gap 3 (5-15); BUN 29 mg/dL (7-18); BUN/Creat Ratio 25.9 RATIO (10-20); Calcium,Total 8.9 mg/dL (8.5-10.1); Chloride 99 mmol/L (98-107); Creatinine, Serum 1.12 mg/dL (0.70-1.30); EST Glomerular Filtration Rate 66 mL/min (>60); Est Glom Filt Rate - Afr Amer 80 mL/min (>60); Globulin 2.9 g/dL (2.2-4.2); Glucose 101 mg/dL (74-106); Potassium 3.9 mmol/L (3.5-5.1); Protein, Total 6.2 g/dL (6.4-8.2); Sodium Level 143 mmol/L (136-145)
[2022-11-18 09:40] LABS: Anisocytosis 2+; Hypochromasia 2+; Platelet Estimate MOD DEC (ADEQ)
== END ==
LOC: OLS.WHLCAR 05:00
PROVIDERS: PCP Internal Medicine; Visit Provider Internal Medicine
DX: I50.9 Heart failure, unspecified (principal); G93.40 Encephalopathy, unspecified; J96.01 Acute respiratory failure with hypoxia; J90 Pleural effusion, not elsewhere classified; F03.90 Unspecified dementia, unspecified severity, without behavioral disturbance, psychotic disturbance, mood disturbance, and anxiety; Z79.899 Other long term (current) drug therapy
CPT/HCPCS: 36415; 80053; 82140; 85025